=== PATIENT | female | born 1950 | race American Indian/Alaskan Native ===

== ENCOUNTER 2017-03-21 15:56 | Inpatient (IN) | payer MEDICARE ==
[2017-03-21 18:00] LABS: Anion Gap 25 mmol/L; BUN/Creatinine Ratio 10.32; Blood Urea Nitrogen 32 mg/dL (7-17); Calcium 9.6 mg/dL (8.4-10.2); Carbon Dioxide 23 mmol/L (22-30); Chloride 98.5 mmol/L (98-107); Glucose 113 mg/dL (65-100); Potassium 4.2 mmol/L (3.6-5.0); Sodium 142 mmol/L (137-145)
--- NOTE | 2017-03-21 19:16 | XRay Report ---
FINAL REPORT EXAM: XR FOREARM LT HISTORY: injury to left arm TECHNIQUE: Left forearm two views 3 images PRIORS: None. FINDINGS: Bone mineralization appears within normal limits. No acute fracture or subluxation is identified. No gross abnormality is seen in the soft tissues. IMPRESSION: 1. No acute osseous abnormality is identified.
[2017-03-21] MEDS ORDERED: ZOFRAN IV ONE (19:50)
[2017-03-21] MEDS ORDERED: MORPHINE IV ONE (19:50)
[2017-03-21] MEDS ORDERED: NORMODYNE IV ONE (19:50)
--- NOTE | 2017-03-21 19:54 | Emergency Department Report ---
HPI - General Chief Complaint: Extremity Injury, Lower Time Seen by Provider: 03/21/17 19:47 - HPI HPI: Chief complaint : left arm pain Patient is 66-year-old black female with no past medical history. Patient presents to ED with left shoulder and left elbow left thumb pain. She stated that she hit her arm earlier during the day. Patient has not taken any medicine for her symptoms. She denies any alleviating or exacerbating factors. No redness no swelling. In the ER, patient blood pressure was found to be 230s over 110s. She complains of mild dizziness at the time. Patient has not been to the doctor in many years. ED Past Medical Hx - Past Medical History Previous Medical History?: No Hx Hypertension: Yes - Surgical History Past Surgical History?: No - Social History Smoking Status: Never Smoker Substance Use Type: None ED Review of Systems ROS: Stated complaint: LEFT ARM PAIN/CANNOT MOVE Other details as noted in HPI Comment: All other systems reviewed and negative Respiratory: no symptoms reported Musculoskeletal: joint swelling, myalgia Hematological/Lymphatic: as per HPI Physical Exam - Physical Exam Vital Signs: Vital Signs 03/21/17 03/21/17 17:06 19:18 Temperature 98.6 F Pulse Rate 98 H 99 H Respiratory 18 20 Rate Blood Pressure 235/150 Blood Pressure 202/121 [Right] O2 Sat by Pulse 100 100 Oximetry Physical Exam: Vital signs reviewed. Gen. alert and oriented 3 in no distress Head atraumatic normocephalic Eyes PERR LA EOMI Chest regular rate and rhythm normal S1-S2 lungs clear bilaterally Abdomen soft nondistended Back no point tenderness paravertebral tenderness Neuro no focal deficit. Psych normal mood. ED Course Vital Signs 03/21/17 03/21/17 17:06 19:18 Temperature 98.6 F Pulse Rate 98 H 99 H Respiratory 18 20 Rate Blood Pressure 235/150 Blood Pressure 202/121 [Right] O2 Sat by Pulse 100 100 Oximetry ED Medical Decision Making - Lab Data Result diagrams: 03/21/17 20:12 03/21/17 17:29 Critical care attestation.: If time is entered above; I have spent that time in minutes in the direct care of this critically ill patient, excluding procedure time. ED Disposition Clinical Impression: Acute renal failure, Labile hypertension Disposition: OP ADMIT IP TO THIS HOSP Is pt being admited?: Yes Does the pt Need Aspirin: No Condition: Stable Instructions: Hypertension (ED)
[2017-03-21] MEDS ORDERED: APRESOLINE IV PRN (20:17)
[2017-03-21] MEDS ORDERED: SODIUM CHLORIDE FLUSH SYRINGE 10 ML IV PRN (20:19)
[2017-03-21] MEDS ORDERED: MILK OF MAGNESIA PO PRN (20:22)
[2017-03-21] MEDS ORDERED: ZOFRAN IV PRN (20:22)
[2017-03-21] MEDS ORDERED: TYLENOL PO PRN (20:22)
[2017-03-21] MEDS ORDERED: DULCOLAX PR PRN (20:22)
[2017-03-21] MEDS ORDERED: MORPHINE IV PRN (20:25)
[2017-03-21 20:37] LABS: Basophils % (Auto) 0.1 % (0.0-1.8); Hemoglobin 11.7 gm/dl (10.1-14.3); Mean Corpuscular HGB Conc 33 % (30-34); Mean Corpuscular Hemoglobin 27 pg (28-32); Mean Corpuscular Volume 83 fl (79-97); Platelet Count 263 K/mm3 (140-440); Red Blood Count 4.34 M/mm3 (3.65-5.03); Red Cell Distribution Width 14.2 % (13.2-15.2); White Blood Count 8.8 K/mm3 (4.5-11.0)
--- NOTE | 2017-03-21 20:37 | History and Physical Report ---
History of Present Illness Chief complaint: left arm pain History of present illness: 66-year-old woman with no significant past medical history presents with one- day of left wrist pain. Pain is sharp, 8/10, associated with left wrist swelling. and is worse on moving the joint, denies any relieving factors She thinks she may have banged her left elbow about 2 weeks ago, she never had any pain from that. She woke up with her left wrist hurting her and it is tender and swollen. She denies chest pain denies shortness of breath, denies palpitations, denies any dizziness or diaphoresis Past History Past Medical History: No medical history Past Surgical History: Social history: no significant social history Family history: hypertension Medications and Allergies Allergies Allergy/AdvReac Type Severity Reaction Status Date / Time No Known Allergies Allergy Verified 03/21/17 17:06 Home Medications Medication Instructions Recorded Confirmed Last Taken Type No Known Home Medications [No 03/21/17 03/21/17 Unknown History Reported Home Medications] Active Meds: Active Medications Acetaminophen (Tylenol) 650 mg PO Q4H PRN PRN Reason: Pain MILD(1-3)/Fever >100.5/PULLIAM Bisacodyl (Dulcolax) 10 mg [place] QDAY PRN PRN Reason: Constipation unrelieved by MOM Enoxaparin Sodium (Lovenox) 30 mg SUB-Q QDAY JENNIFER Hydralazine HCl (Apresoline) 10 mg IV Q4H PRN PRN Reason: BP >160/100 Hydrochlorothiazide (Hctz) 25 mg PO QDAY JENNIFER Sodium Chloride (Nacl 0.9% 1000 Ml) 1,000 mls @ 150 mls/hr IV DIRECT JENNIFER Stop: 03/22/17 03:39 Magnesium Hydroxide (Milk Of Magnesia) 30 ml PO Q4H PRN PRN Reason: Constipation Morphine Sulfate (Morphine) 2 mg IV Q4H PRN PRN Reason: Pain, Moderate (4-6) Nifedipine (Procardia Xl) 60 mg PO Q12HR JENNIFER Ondansetron HCl (Zofran) 4 mg IV Q8H PRN PRN Reason: N/V unrelieved by Reglan Sodium Chloride (Sodium Chloride Flush Syringe 10 Ml) 10 ml IV PRN PRN PRN Reason: LINE FLUSH Review of Systems All systems: negative (as stated in HPI, 14 system review is otherwise negative) Exam - Constitutional Vitals: Temp Pulse Resp BP Pulse Ox 98.6 F 73 20 231/121 98 03/21/17 17:06 03/21/17 20:17 03/21/17 20:20 03/21/17 20:17 03/21/17 20:20 General appearance: Present: no acute distress, well-nourished - EENT Eyes: Present: PERRL ENT: hearing intact, clear oral mucosa - Neck Neck: Present: supple, normal ROM - Respiratory Respiratory effort: normal Respiratory: bilateral: CTA - Cardiovascular Heart Sounds: Present: S1 & S2. Absent: rub, click - Extremities Extremities: pulses symmetrical Extremity abnormal: edema (left wrist tender, swollen, and slightly warm to touch) Peripheral Pulses: within normal limits - Abdominal General gastrointestinal: Present: soft, non-tender, non-distended, normal bowel sounds Female genitourinary: Present: normal - Rectal Rectal Exam: deferred - Integumentary Integumentary: Present: clear, warm, dry Body Four View: 1 - edema, tenderness, warmth - Musculoskeletal Musculoskeletal: gait normal, strength equal bilaterally - Psychiatric Psychiatric: appropriate mood/affect, intact judgment & insight - Neurologic Neurologic: CNII-XII intact, moves all extremities Results - Labs CBC & Chem 7: 03/22/17 05:25 03/22/17 05:25 Labs: Laboratory Last Values Sodium 142 mmol/L (137-145) 03/21/17 17:29 Potassium 4.2 mmol/L (3.6-5.0) 03/21/17 17:29 Chloride 98.5 mmol/L (98-107) 03/21/17 17:29 Carbon Dioxide 23 mmol/L (22-30) 03/21/17 17:29 Anion Gap 25 mmol/L 03/21/17 17:29 BUN 32 mg/dL (7-17) H 03/21/17 17:29 Creatinine 3.1 mg/dL (0.7-1.2) H 03/21/17 17:29 Estimated GFR 15 ml/min 03/21/17 17:29 BUN/Creatinine Ratio 10.32 % 03/21/17 17:29 Glucose 113 mg/dL (65-100) H 03/21/17 17:29 Calcium 9.6 mg/dL (8.4-10.2) 03/21/17 17:29 Troponin T < 0.010 ng/mL (0.00-0.029) 03/21/17 17:29 - Imaging and Cardiology Chest x-ray: image reviewed Assessment and Plan Assessment and plan: 66-year-old woman with no significant past medical history who presents with left arm pain, found to have hypertensive emergency Hypertensive emergency Patient has been started on IV medications and by mouth medications. She does not improve we'll have to consider transferring to the ICU and started on a Cardene drip Left wrist tenderness and swelling -likely due to gout or pseudogout -avoid NSAIDs, given KISHAN -start on steroids and pain meds -consider athrocentesis if symptoms do not improve Chest pain We have to consider this left arm pain to be a chest pain equivalent obtain CXR Troponin negative 1, EKG shows no acute changes, obtain serial troponins, obtain stress test in the morning, Continue medications to reduce blood pressure Acute kidney injury Baseline creatinine is unknown, given uncontrolled untreated hypertension it's likely this may be close to her baseline We'll give her a trial of IV fluids, if her renal function does not improve will obtain renal ultrasound and nephrology consults and urine lites Avoid nephrotoxins DVT prophylaxis Lovenox renally dosed VTE prophylaxis?: Chemical Plan of care discussed with patient/family: Yes
[2017-03-21] MEDS ORDERED: NACL 0.9% 1000 ML 1,000 ML IV SCH (21:00)
[2017-03-21] MEDS: PERCOCET 5/325 PO PRN (22:04)
[2017-03-21] MEDS: DELTASONE PO SCH (22:04)
[2017-03-21] MEDS: PROCARDIA XL PO SCH (22:40)
[2017-03-22 06:06] LABS: Basophils % (Auto) 0.1 % (0.0-1.8); Hematocrit 30.4 % (30.3-42.9); Hemoglobin 10.2 gm/dl (10.1-14.3); Mean Corpuscular HGB Conc 33 % (30-34); Mean Corpuscular Hemoglobin 27 pg (28-32); Mean Corpuscular Volume 81 fl (79-97); Platelet Count 224 K/mm3 (140-440); Red Blood Count 3.74 M/mm3 (3.65-5.03); Red Cell Distribution Width 14.1 % (13.2-15.2); White Blood Count 6.9 K/mm3 (4.5-11.0)
[2017-03-22 06:30] LABS: BUN/Creatinine Ratio 11.29; Calcium 9.1 mg/dL (8.4-10.2); Chloride 100.4 mmol/L (98-107); Potassium 3.9 mmol/L (3.6-5.0)
--- NOTE | 2017-03-22 08:08 | XRay Report ---
AP CHEST : 03/21/17 20:41 CLINICAL: Chest pain. COMPARISON:None FINDINGS: Cardiomegaly. Normal pulmonary vessels. The lungs are normally expanded and clear. The bones and soft tissues are unremarkable. IMPRESSION: Cardiomegaly but no CHF.
[2017-03-22] MEDS ORDERED: APRESOLINE IV PRN (08:17)
[2017-03-22] MEDS ORDERED: LEXISCAN IV ONE ×2 (08:39→08:45)
--- NOTE | 2017-03-22 08:59 | Consultation ---
History of Present Illness - Reason for Consult Consult date: 03/22/17 acute renal failure, chronic renal failure - History of Present Illness Patient is a 66-year-old AAF without any significant past medical history presents with one-day h/o left wrist pain. She hit her left elbow on the door at home about 2 weeks ago. The pain started few days ago, but yesterday it got worse and she was barely able to move her left hand. Pain was sharp, 8/10 and associated with left wrist swelling. Her intial BP was 235/150 mmHg. No prior h/o HTN, but hasn't seen a physician in a long while. Doesn't remember having any lab test done in the past few years. Her creatinine is 3.1. She denies chest pain, shortness of breath, dizziness, diaphoresis, leg swelling, weakness , muscle cramps, hematuria, NSAID intake, recurrent UTIs or family h/o CKD / ESRD. Past History Past Medical History: No medical history Past Surgical History: Social history: no significant social history Family history: hypertension Medications and Allergies Allergies Allergy/AdvReac Type Severity Reaction Status Date / Time No Known Allergies Allergy Verified 03/21/17 17:06 Home Medications Medication Instructions Recorded Confirmed Last Taken Type No Known Home Medications [No 03/21/17 03/21/17 Unknown History Reported Home Medications] Active Meds: Active Medications Acetaminophen (Tylenol) 650 mg PO Q4H PRN PRN Reason: Pain MILD(1-3)/Fever >100.5/PULLIAM Bisacodyl (Dulcolax) 10 mg [place] QDAY PRN PRN Reason: Constipation unrelieved by MOM Doxazosin Mesylate (Cardura) 4 mg PO QHS JENNIFER Enoxaparin Sodium (Lovenox) 30 mg SUB-Q QDAY JENNIFER Hydralazine HCl (Apresoline) 10 mg IV Q4H PRN PRN Reason: BP >160/100 Last Admin: 03/22/17 01:14 Dose: 10 mg Hydralazine HCl (Apresoline) 10 mg IV Q4HR PRN PRN Reason: Hypertension Magnesium Hydroxide (Milk Of Magnesia) 30 ml PO Q4H PRN PRN Reason: Constipation Morphine Sulfate (Morphine) 2 mg IV Q4H PRN PRN Reason: Pain, Moderate (4-6) Last Admin: 03/22/17 01:15 Dose: 2 mg Nifedipine (Procardia Xl) 60 mg PO Q12HR [facility] Last Admin: 03/21/17 22:40 Dose: 60 mg Ondansetron HCl (Zofran) 4 mg IV Q8H PRN PRN Reason: N/V unrelieved by Reglan Last Admin: 03/21/17 22:05 Dose: 4 mg Oxycodone/Acetaminophen (Percocet 5/325) 1 tab PO Q6H PRN PRN Reason: Pain, Moderate (4-6) Last Admin: 03/21/17 22:04 Dose: 1 tab Prednisone (Deltasone) 20 mg PO QDAY [facility] Last Admin: 03/21/17 22:04 Dose: 20 mg Sodium Chloride (Sodium Chloride Flush Syringe 10 Ml) 10 ml IV PRN PRN PRN Reason: LINE FLUSH Review of Systems Constitutional: no weight loss, no weight gain, no fever, no chills, no anorexia , no poor appetite Ears, nose, mouth and throat: no sinus pressure, no sinus pain, no epistaxis Breasts: deferred Cardiovascular: no chest pain, no orthopnea, no palpitations, no rapid/ irregular heart beat, no edema, no syncope, no lightheadedness, no shortness of breath, no dyspnea on exertion, no high blood pressure, no leg edema Respiratory: no cough, no shortness of breath Gastrointestinal: no abdominal pain, no nausea, no vomiting, no diarrhea, no melena Genitourinary Female: no hematuria Rectal: no bleeding Musculoskeletal: no hot joints, no morning stiffness Integumentary: no rash Neurological: no head injury, no paralysis, no weakness, no syncope, no vertigo Psychiatric: no disorientation Hematologic/Lymphatic: no easy bleeding Exam - Vital Signs Vital signs: Vital Signs Temp Pulse Resp BP Pulse Ox 98.6 F 98 H 18 235/150 100 03/21/17 17:06 03/21/17 17:06 03/21/17 17:06 03/21/17 17:06 03/21/17 17:06 - General Appearance General appearance: well-developed, well-nourished, appears stated age, other ( no distress) EENT: ATNC, PERRL, mucous membranes moist, hearing intact, vision intact Neck: Present: neck supple Respiratory: Clear to Ascultation Heart: regular, S1S2, no murmurs Gastrointestinal: Present: normoactive bowel sounds. Absent: tenderness, distended Integumentary: no rash, warm and dry Neurologic: no focal deficit, no asterixis, alert and oriented x3, CN 3-12 intact Musculoskeletal: Present: other (left wrist swollen, tender to touch) Psychiatric: mood/affect appropriate, cooperative Results - Lab Results 03/22/17 05:25 03/22/17 05:25 Most recent lab results Calcium 9.1 mg/dL (8.4-10.2) 03/22/17 05:25 - Image Kidney/bladder ultrasound: pending Assessment and Plan - Patient Problems (1) Acute renal failure Current Visit: Yes Status: Acute Qualifiers: Acute renal failure type: A Plan to address problem: Renal Insufficieny appears to be more of CKD rather than acute. CKD likely secondary to poorly controlled HTN. Renal US, Renal artery duplex and Urine studies are pending. Follow renal function. (2) Uncontrolled hypertension Current Visit: Yes Status: Chronic Plan to address problem: Add Cardura. (3) Left wrist injury Current Visit: Yes Status: Acute Qualifiers: Encounter type: E
[2017-03-22] MEDS ORDERED: HCTZ PO SCH (10:00)
[2017-03-22] MEDS ORDERED: LOVENOX SUB-Q SCH (10:00)
--- NOTE | 2017-03-22 10:15 | Admit Criteria Form ---
Admission Criteria Documentation: HYPERTENSION Clinical Indications for Admission to Inpatient Care ( tonto apache/check or initial the applicable condition/criteria) Admission is indicated for 1 or more of the following(1)(2)(3)(4)(5)(6)(7)(8)(9) (10): [ ]I. Hypertensive emergency, with evidence of acute and progressing target organ disease as indicated by 1 or more of the following: [ ]a) Hypertensive encephalopathy (e.g., confusion, altered mental status) (11) [ ]b) Cerebral infarction [ ]c) Intracranial hemorrhage [ ]d) Myocardial ischemia or infarction [ ]e) Heart failure (eg. Pulmonary edema) [ ]f) Aortic dissection [ ]g) Increased creatinine (new) with reduction of more than 50% in estimated glomerular filtration rate from baseline [ ]h) Seizure [ ]i) Papilledema [ ]j) Retinal hemorrhage [ ]k) Microangiopathic hemolytic anemia [ ]l) Other significant finding secondary to hypertension [ ]II. Adrenergic or sympathomimetic crisis (e.g., severe hypertension due to pheochromocytoma crisis, cocaine, phencyclindine, or amphetamine intoxication, or clonidine withdrawal) [X]III. Severe hypertension (SBP greater than 180 mmHg or DBP greater than 110 mmHg or greater than the 95th percentile for age, gender, and height in pediatric patients) that cannot be controlled (e.g., to SBP less than 160 mmHg and DBP less than 100 mmHg in adults) by treatment with oral medication in emergency department or observation care (12) Extended stay beyond goal length of staymay be needed for(21)(22): [ ]a) Persistent hypertensive encephalopathy [ ]b) Continuation of pulmonary edema [ ]c) Recurring or persistent severe hypertension [ ]d) Target organ damage (eg, angina, stroke, aortic dissection) The original [employer] content created by [employer] has been revised. The portions of the content which have been revised are identified through the use of italic text or in bold, and [employer] has neither reviewed nor approved the modified material. All other unmodified content is copyright [employer]. Please see references footnoted in the original [employer] edition 2016 Admission Criteria Met: Yes
--- NOTE | 2017-03-22 10:34 | Ultrasound Report ---
ULTRASOUND RENAL INDICATION: Renal failure. COMPARISON: None similar. FINDINGS: Renal sonography suggests mild to moderately increased renal cortical echogenicity. Grossly preserved contours. No hydronephrosis. RIGHT KIDNEY measures 8.7 x 3.9 x 4.3 cm with cortical thickness of 1 cm. LEFT KIDNEY estimated at 7.3 x 3.9 x 4.1 cm with cortical thickness of 1.1 cm. URINARY BLADDER grossly within normal limits. CONCLUSION: Medical renal disease and mild renal atrophy without acute sonographic abnormality. Please correlate. Thank you for the opportunity to participate in this patient's care.
--- NOTE | 2017-03-22 11:38 | Discharge Summary ---
Providers - Providers Date of Admission: 03/21/17 20:22 Date of discharge: 03/22/17 Attending physician: XIN CAHIDEZ MD 03/22/17 08:15 Consult to Physician [CONS] Routine Consulting Provider: ORTIZ PULIDO Reason For Exam: RENAL FAILURE Place consult to:: Dr. Pulido Notified:: Rich GONZALES Comment:: Dr. Pulido is aware of consult Primary care physician: [employer] Hospitalization Reason for admission: wrist pain, chest pain Condition: Stable Hospital course: 66-year-old woman with no significant past medical history presents with one- day of left wrist pain. Pain is sharp, 8/10, associated with left wrist swelling. and is worse on moving the joint, denies any relieving factors She thinks she may have banged her left elbow about 2 weeks ago, she never had any pain from that. She woke up with her left wrist hurting her and it is tender and swollen. She denies chest pain denies shortness of breath, denies palpitations, denies any dizziness or diaphoresis the patient presented to stress test which was unremarkable. Her wrist pain did resolve remarkably she started complaining of shoulder pain. She stated that she felt like her shoulder has just dislocated and was propped him out. She was able to passively extend and flex her left upper extremity and also listed above 60. It appears her pain went migratory. On repeat examination she denies that she needs to hold it up with her hand but when she takes of her hands she is able to independently move her hands. The nurse with. called me and stated that the patient started vomiting with decided to hold her discharge and then I got called again about 3 hours later that the patient suddenly left the hospital. Patients blood pressure was noted to be elevated and was adjusted, Nephrology was consulted and agreed about chronic Kidney disease, outpatient follow up was arranged. Renal ultrasound revealed medical renal disease. I advised patient on proper follow up. Diagnosis Hypertensive emergency Pseudogout Chest pain CKD Gastroenteritis Disposition: LEFT AGAINST MED ADVICE Time spent for discharge: 35 MINS Core Measure Documentation - Palliative Care Palliative Care/ Comfort Measures: Not Applicable - Core Measures Any of the following diagnoses?: none - VTE Discharge Requirements Deep Vein Thrombosis/Pulmonary Embolism Present on Admission: No Exam - Physical Exam Narrative exam: General appearance: Present: no acute distress, well-nourished - EENT Eyes: Present: PERRL ENT: hearing intact, clear oral mucosa - Neck Neck: Present: supple, normal ROM - Respiratory Respiratory effort: normal Respiratory: bilateral: CTA - Cardiovascular Heart Sounds: Present: S1 & S2. Absent: rub, click - Extremities Extremities: pulses symmetrical Extremity abnormal: edema , previously noted edema has improved. no tenderness in shoulder, Normal range of motion Peripheral Pulses: within normal limits - Abdominal General gastrointestinal: Present: soft, non-tender, non-distended, normal bowel sounds Female genitourinary: Present: normal - Rectal Rectal Exam: deferred - Integumentary Integumentary: Present: clear, warm, dry - Constitutional Vitals: Temp Pulse Resp BP Pulse Ox 98.7 F 60 20 170/79 95 03/22/17 05:47 03/22/17 07:45 03/22/17 05:47 03/22/17 05:47 03/22/17 05:47 Plan Activity: advance as tolerated, fall precautions Diet: low fat, renal Special Instructions: record daily weights, record daily BP diary Additional Instructions: RECOMMEND OUTPATIENT LEFT SHOULDER XRAY TO BE ARRANGED BY PCP if no resolution Follow up with: PRIMARY CARE, [Primary Care Provider] - 3-5 Days GERARDO DOHERTY MD [Staff Physician] - 7 Days ORTIZ PULIDO MD [Staff Physician] - 7 Days Prescriptions: Doxazosin [Cardura] 4 mg PO QHS #30 tablet NIFEdipine XL [Procardia Xl] 60 mg PO Q12HR #60 tablet predniSONE [Deltasone] 20 mg PO QDAY #10 tablet traMADol [Ultram] 50 mg PO Q6HR PRN #20 tablet PRN Reason: Pain
[2017-03-22] MEDS: DELTASONE PO SCH (12:30)
[2017-03-22] MEDS: PROCARDIA XL PO SCH (12:30)
[2017-03-22] MEDS: PERCOCET 5/325 PO PRN (14:33)
--- NOTE | 2017-03-22 18:05 | Progress Note ---
History Interval history: patient with vomiting. Hospitalist Physical - Constitutional Vitals: Temp Pulse Resp BP Pulse Ox 97.6 F 80 18 146/69 98 03/22/17 11:37 03/22/17 11:37 03/22/17 11:37 03/22/17 11:37 03/22/17 14:18 General appearance: Present: no acute distress, well-nourished Results - Labs CBC & Chem 7: 03/22/17 05:25 03/22/17 05:25 Labs: Laboratory Last Values WBC 6.9 K/mm3 (4.5-11.0) 03/22/17 05:25 RBC 3.74 M/mm3 (3.65-5.03) 03/22/17 05:25 Hgb 10.2 gm/dl (10.1-14.3) 03/22/17 05:25 Hct 30.4 % (30.3-42.9) 03/22/17 05:25 MCV 81 fl (79-97) 03/22/17 05:25 MCH 27 pg (28-32) L 03/22/17 05:25 MCHC 33 % (30-34) 03/22/17 05:25 RDW 14.1 % (13.2-15.2) 03/22/17 05:25 Plt Count 224 K/mm3 (140-440) 03/22/17 05:25 Lymph % (Auto) 13.6 % (13.4-35.0) 03/22/17 05:25 [place]ier % (Auto) 9.6 % (0.0-7.3) H 03/22/17 05:25 Eos % (Auto) 0.0 % (0.0-4.3) 03/22/17 05:25 Baso % (Auto) 0.1 % (0.0-1.8) 03/22/17 05:25 Lymph # 0.9 K/mm3 (1.2-5.4) L 03/22/17 05:25 [place] # 0.7 K/mm3 (0.0-0.8) 03/22/17 05:25 Eos # 0.0 K/mm3 (0.0-0.4) 03/22/17 05:25 Baso # 0.0 K/mm3 (0.0-0.1) 03/22/17 05:25 Seg Neutrophils % 76.7 % (40.0-70.0) H 03/22/17 05:25 Seg Neutrophils # 5.3 K/mm3 (1.8-7.7) 03/22/17 05:25 Sodium 142 mmol/L (137-145) 03/22/17 05:25 Potassium 3.9 mmol/L (3.6-5.0) 03/22/17 05:25 Chloride 100.4 mmol/L (98-107) 03/22/17 05:25 Carbon Dioxide 23 mmol/L (22-30) 03/22/17 05:25 Anion Gap 23 mmol/L 03/22/17 05:25 BUN 35 mg/dL (7-17) H 03/22/17 05:25 Creatinine 3.1 mg/dL (0.7-1.2) H 03/22/17 05:25 Estimated GFR 18 ml/min 03/22/17 05:25 BUN/Creatinine Ratio 11.29 % 03/22/17 05:25 Glucose 159 mg/dL (65-100) H 03/22/17 05:25 Calcium 9.1 mg/dL (8.4-10.2) 03/22/17 05:25 Troponin T < 0.010 ng/mL (0.00-0.029) 03/21/17 23:48 Triglycerides 94 mg/dL (2-149) 03/22/17 05:25 Cholesterol 219 mg/dL (50-199) H 03/22/17 05:25 LDL Cholesterol Direct 143 mg/dL (50-130) H 03/22/17 05:25 HDL Cholesterol 58 mg/dL (40-59) 03/22/17 05:25 Cholesterol/HDL Ratio 3.77 % 03/22/17 05:25
[2017-03-22 18:29] VITALS: BP 178/84
[2017-03-22 19:00] LABS: Alanine Aminotransferase 29 units/L (7-56); Albumin/Globulin Ratio 1.2 %; Alkaline Phosphatase 74 units/L (35-129); Bilirubin,Direct < 0.2 mg/dL (0-0.2); Bilirubin,Indirect 0.2 mg/dL; Total Protein 7.4 g/dL (6.3-8.2)
[2017-03-22] MEDS ORDERED: CARDURA PO SCH (22:00)
--- NOTE | 2017-03-23 07:54 | Vascular Lab Report ---
RENAL ARTERY DUPLEX EXAM: REASON FOR EXAM: Renal artery stenosis. NOTE: Visualization is technically adequate. COMMENTS ON THE AORTA: The aorta is patent. Elevated flow velocities are observed. No aneurysmal dilatation is noted. Mild atherosclerotic change is identified. The celiac artery is patent with elevated flow velocities. The superior mesenteric artery is patent with elevated flow. COMMENTS ON THE RIGHT KIDNEY: The kidney measures 10.8 centimeters in greatest dimension. No obvious parenchymal abnormalities are noted. The renal artery is patent. Maximum systolic velocity is 204 cm/sec. This finding is consistent with more than 60% diameter reduction. Renal aortic index is 2.1. This finding is consistent with less than 60% diameter reduction. Overall findings are consistent with more than 60% diameter reduction in the renal artery. COMMENTS ON THE LEFT KIDNEY: The kidney measures 10.2 centimeters in greatest dimension. No obvious parenchymal abnormalities are noted. The renal artery is patent. Maximum systolic velocity is 206 cm/sec. This finding is consistent with more than 60% diameter reduction. Renal aortic index is 2.12. This finding is consistent with less than 60% diameter reduction. Overall findings are consistent with more than 60% diameter reduction in the renal artery. IMPRESSION: RIGHT KIDNEY: More than 60% diameter reduction in the renal artery. LEFT KIDNEY: More than 60% diameter reduction in the renal artery. 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 Clinical correlation recommended.
== END 2017-03-22 18:29 | disposition left against medical advice (07) | DRG 683 ==
LOC: ED 15:56 → 4A 20:22
PROVIDERS: ADMIT Internal Medicine; ATTEND Internal Medicine
DX: N17.9 Acute kidney failure, unspecified (principal); I16.1 Hypertensive emergency; S69.92XA Unspecified injury of left wrist, hand and finger(s), initial encounter; I12.9 Hypertensive chronic kidney disease with stage 1 through stage 4 chronic kidney disease, or unspecified chronic kidney disease; R07.9 Chest pain, unspecified; K52.9 Noninfective gastroenteritis and colitis, unspecified; M11.20 Other chondrocalcinosis, unspecified site; N18.9 Chronic kidney disease, unspecified; Z82.49 Family history of ischemic heart disease and other diseases of the circulatory system; Z98.891 History of uterine scar from previous surgery; Z53.21 Procedure and treatment not carried out due to patient leaving prior to being seen by health care provider; X58.XXXA Exposure to other specified factors, initial encounter; Y93.89 Activity, other specified; Y92.89 Other specified places as the place of occurrence of the external cause
CPT/HCPCS: 36415; 71010; 76770; 78452; 80048; 80061; 80074; 84484; 85025; 93005; 93010; 93017; 93975; 96374; 96375; 96376; A9502; J0360; J2270; J2405; J2785; J7030; J7512

== ENCOUNTER 2017-03-31 12:43 | Outpatient (CLI) | payer MEDICARE ==
[2017-03-31 13:03] LABS: Bacteria,Urine 1+ /HPF (Negative); Bilirubin,Urine NEG (Negative); Blood,Urine SM (Negative); Ketones,Urine NEG (Negative); Leukocyte Esterase,Urine LG (Negative); Mucus,Urine FEW /HPF; Nitrite,Urine NEG (Negative); Urobilinogen,Urine < 2.0 mg/dL (<2.0)
[2017-03-31 13:39] LABS: BUN/Creatinine Ratio 14.33; Calcium 9.2 mg/dL (8.4-10.2); Chloride 102.4 mmol/L (98-107); Phosphorous 4.3 mg/dL (2.5-4.5); Potassium 4.3 mmol/L (3.6-5.0)
== END 2017-03-31 12:44 | disposition home or self-care (01) ==
LOC: LAB 12:43
PROVIDERS: ATTEND Internal Medicine Nephrology
DX: I12.9 Hypertensive chronic kidney disease with stage 1 through stage 4 chronic kidney disease, or unspecified chronic kidney disease (principal); N18.4 Chronic kidney disease, stage 4 (severe)
CPT/HCPCS: 36415; 80048; 81001; 83970; 84100; 86038

== ENCOUNTER 2022-01-02 12:48 | Inpatient (IN) | payer MEDICARE ==
--- NOTE | 2022-01-02 13:42 | Event Note ---
Date: 01/02/22 EMS documentation not available at time of chart dictation Medical screening examination note: 71-year-old female with a history of renal insufficiency, not COVID-19 vaccinated, probable hypertension, presenting to the ER today with a complaint of painless shortness of breath for 2 weeks. Patient reportedly hypoxic in the field. In the emergency room, on 2 to 3 L of supplemental oxygen, blood pressure 197 systolic. She is speaking in complete sentences on her cellular phone. Place patient on hall monitor, obtain EKG, chest x-ray, appropriate laboratory studies, detailed history and physical to be performed by oncoming provider. Vital Signs 01/02/22 12:54 Temperature 98.1 F Pulse Rate 108 H Respiratory 16 Rate Blood Pressure 160/102 [Left] O2 Sat by Pulse 98 Oximetry
--- NOTE | 2022-01-02 14:05 | XRay Report ---
CHEST 1 VIEW, 01/02/2022 1:44 PM CLINICAL INFORMATION/INDICATION: Shortness of breath COMPARISON: Chest radiograph, 03/21/2017 FINDINGS: SUPPORT DEVICES: None. HEART: The cardiac silhouette is normal in size. LUNGS/PLEURA: There is been interval development of diffuse bilateral predominantly interstitial opac ities with probable small bilateral pleural effusions. ADDITIONAL FINDINGS: No additional acute findings. IMPRESSION: 1. Diffuse predominantly interstitial opacities with small bilateral pleural effusions. Findings are favored to represent an infectious or inflammatory process. Pulmonary edema could have a similar appe arance. Signer Name: Stephanie Dumont MD Signed: 01/02/2022 2:01 PM Workstation Name: [employer]
[2022-01-02 14:13] LABS: Basophils % (Auto) 0.2 % (0.0-1.8); Eosinophils % (Auto) 0.4 % (0.0-4.3); Hematocrit 28.4 % (30.3-42.9); Hemoglobin 9.4 gm/dl (10.1-14.3); Lymphocytes # (Auto) 0.7 K/mm3 (1.2-5.4); Lymphocytes % (Auto) 9.6 % (13.4-35.0); Mean Corpuscular HGB Conc 33 % (30-34); Mean Corpuscular Volume 84 fl (79-97); Monocytes # (Auto) 0.7 K/mm3 (0.0-0.8); Monocytes % (Auto) 10.1 % (0.0-7.3); Platelet Count 273 K/mm3 (140-440); Red Blood Count 3.39 M/mm3 (3.65-5.03); Red Cell Distribution Width 14.3 % (13.2-15.2)
[2022-01-02] MEDS ORDERED: NITROGLYCERIN 2% OINT 1 GM TP ONE (14:32)
[2022-01-02 14:34] LABS: INR 1.1 (0.87-1.13)
[2022-01-02 14:37] LABS: Albumin 4.4 g/dL (3.9-5); Calcium 9.7 mg/dL (8.4-10.2)
[2022-01-02 14:51] LABS: Chol/HDL Ratio 5.13 %
--- NOTE | 2022-01-02 14:54 | Emergency Department Report ---
ED Shortness of Breath HPI - General Chief Complaint: Dyspnea/Respdistress Stated Complaint: MARVIN Time Seen by Provider: 01/02/22 14:02 Source: EMS Mode of arrival: Stretcher Limitations: No Limitations - History of Present Illness Initial Comments: 71-year-old female with a past medical history of hypertension, renal insufficiency, and unvaccinated for COVID presents to the hospital with 2 weeks of progressively worsening shortness of breath. Positive dyspnea on exertion, orthopnea, and PND for the last week. Patient denies decreasing urinary output, chest pain, cough, fever, calf tenderness, leg edema, history of CAD. Patient went to her PMD office and was found to be hypoxic with a room air saturation of 85%. She received 1 puff of a ProAir inhaler prior to ED transport. She is currently on 2 L of oxygen at time of my evaluation but is satting in the mid to high 90s - Related Data Previous Rx's Medication Instructions Recorded Last Taken Type Doxazosin [Cardura] 4 mg PO QHS #30 tablet 03/22/17 Unknown Rx NIFEdipine XL [Procardia Xl] 60 mg PO Q12HR #60 tablet 03/22/17 Unknown Rx predniSONE [Deltasone] 20 mg PO QDAY #10 tablet 03/22/17 Unknown Rx traMADoL [Ultram] 50 mg PO Q6HR PRN #20 tablet 03/22/17 Unknown Rx Allergies Allergy/AdvReac Type Severity Reaction Status Date / Time No Known Allergies Allergy Verified 01/02/22 14:40 ED Review of Systems ROS: Stated complaint: MARVIN Other details as noted in HPI Comment: All other systems reviewed and negative ED Past Medical Hx - Past Medical History Hx Hypertension: Yes Hx Renal Disease: Yes (Renal insufficiency) - Social History Smoking Status: Never Smoker Substance Use Type: None - Medications Home Medications: Home Medications Medication Instructions Recorded Confirmed Last Taken Type Doxazosin [Cardura] 4 mg PO QHS #30 tablet 03/22/17 01/02/22 Unknown Rx NIFEdipine XL [Procardia Xl] 60 mg PO Q12HR #60 tablet 03/22/17 01/02/22 Unknown Rx predniSONE [Deltasone] 20 mg PO QDAY #10 tablet 03/22/17 01/02/22 Unknown Rx traMADoL [Ultram] 50 mg PO Q6HR PRN #20 tablet 03/22/17 01/02/22 Unknown Rx ED Physical Exam - General Limitations: No Limitations - Other Other exam information: General: No acute distress Head: Atraumatic Eyes: normal appearance ENT: Moist mucous membranes Neck: Normal appearance, no midline tenderness Chest: Tachypnea, no audible rales or wheezes CV: Tachycardic regular Abdomen: Soft, normal bowel sounds, nontender, nondistended, no rebound or guarding Back: Normal inspection Extremity: Normal inspection, full range of motion, no calf tenderness or leg edema Neuro: Alert O x 3, no facial asymmetry, speech clear, no gross motor sensory deficit Psych: Appropriate behavior Skin: No rash ED Course Vital Signs 01/02/22 01/02/22 01/02/22 12:54 14:21 15:52 Temperature 98.1 F 99.5 F Pulse Rate 108 H 32 L Respiratory 16 32 H Rate Blood Pressure 160/102 198/126 [Left] O2 Sat by Pulse 98 99 94 Oximetry - Consultations Consultation #1: 01/02/22 15:38 case d/w with Dr Desir state dr Hernandez is her flap lining binder 01/02/22 15:58 Case discussed with flap lining binder Dr. Hernandez. He will evaluate patient and evaluate renal function during admission 01/02/22 16:27 case d/w Dr Farmer cardiology, will consult ED Medical Decision Making - Lab Data Result diagrams: 01/02/22 13:54 01/02/22 13:54 Lab Results 01/02/22 01/02/22 01/02/22 Range/Units 13:54 13:54 13:54 WBC 6.9 (4.5-11.0) K/mm3 RBC 3.39 L (3.65-5.03) M/mm3 Hgb 9.4 L (10.1-14.3) gm/dl Hct 28.4 L (30.3-42.9) % MCV 84 (79-97) fl MCH 28 (28-32) pg MCHC 33 (30-34) % RDW 14.3 (13.2-15.2) % Plt Count 273 (140-440) K/mm3 Lymph % (Auto) 9.6 L (13.4-35.0) % [place] % (Auto) 10.1 H (0.0-7.3) % Eos % (Auto) 0.4 (0.0-4.3) % Baso % (Auto) 0.2 (0.0-1.8) % Lymph # (Auto) 0.7 L (1.2-5.4) K/mm3 [place] # (Auto) 0.7 (0.0-0.8) K/mm3 Eos # (Auto) 0.0 (0.0-0.4) K/mm3 Baso # (Auto) 0.0 (0.0-0.1) K/mm3 Seg Neutrophils % 79.7 H (40.0-70.0) % Seg Neutrophils # 5.5 (1.8-7.7) K/mm3 PT 15.5 H (12.2-14.9) Sec. INR 1.10 (0.87-1.13) Sodium 136 L (137-145) mmol/L Potassium 4.3 (3.6-5.0) mmol/L Chloride 102.0 (98-107) mmol/L Carbon Dioxide 18 L (22-30) mmol/L Anion Gap 20 mmol/L BUN 68 H (7-17) mg/dL Creatinine 4.9 H (0.6-1.2) mg/dL Estimated GFR 11 ml/min BUN/Creatinine Ratio 14 % Glucose 101 H (65-100) mg/dL Calcium 9.7 (8.4-10.2) mg/dL Total Bilirubin 0.30 (0.1-1.2) mg/dL AST 23 (5-40) units/L ALT 21 (7-56) units/L Alkaline Phosphatase 74 (35-129) units/L Troponin T (0.00-0.029) ng/mL NT-Pro-B Natriuret Pep 21204 H (0-900) pg/mL Total Protein 7.0 (6.3-8.2) g/dL Albumin 4.4 (3.9-5) g/dL Albumin/Globulin Ratio 1.7 % Triglycerides (2-149) mg/dL Cholesterol (50-199) mg/dL LDL Cholesterol Direct (50-130) mg/dL HDL Cholesterol (40-59) mg/dL Cholesterol/HDL Ratio % //22 Range/Units 13:54 WBC (4.5-11.0) K/mm3 RBC (3.65-5.03) M/mm3 Hgb (10.1-14.3) gm/dl Hct (30.3-42.9) % MCV (79-97) fl MCH (28-32) pg MCHC (30-34) % RDW (13.2-15.2) % Plt Count (140-440) K/mm3 Lymph % (Auto) (13.4-35.0) % [place] % (Auto) (0.0-7.3) % Eos % (Auto) (0.0-4.3) % Baso % (Auto) (0.0-1.8) % Lymph # (Auto) (1.2-5.4) K/mm3 [place] # (Auto) (0.0-0.8) K/mm3 Eos # (Auto) (0.0-0.4) K/mm3 Baso # (Auto) (0.0-0.1) K/mm3 Seg Neutrophils % (40.0-70.0) % Seg Neutrophils # (1.8-7.7) K/mm3 PT (12.2-14.9) Sec. INR (0.87-1.13) Sodium (137-145) mmol/L Potassium (3.6-5.0) mmol/L Chloride (98-107) mmol/L Carbon Dioxide (22-30) mmol/L Anion Gap mmol/L BUN (7-17) mg/dL Creatinine (0.6-1.2) mg/dL Estimated GFR ml/min BUN/Creatinine Ratio % Glucose (65-100) mg/dL Calcium (8.4-10.2) mg/dL Total Bilirubin (0.1-1.2) mg/dL AST (5-40) units/L ALT (7-56) units/L Alkaline Phosphatase (35-129) units/L Troponin T 0.141 H* (0.00-0.029) ng/mL NT-Pro-B Natriuret Pep (0-900) pg/mL Total Protein (6.3-8.2) g/dL Albumin (3.9-5) g/dL Albumin/Globulin Ratio % Triglycerides 177 H (2-149) mg/dL Cholesterol 267 H (50-199) mg/dL LDL Cholesterol Direct 192 H (50-130) mg/dL HDL Cholesterol 52 (40-59) mg/dL Cholesterol/HDL Ratio 5.13 % - EKG Data -: EKG Interpreted by Me EKG shows normal: sinus rhythm, ST-T waves (LVH with repol, no ST elevation HI) Rate: tachycardia (110) - EKG Data When compared to previous EKG there are: no significant change - Radiology Data Radiology results: report reviewed CHEST 1 VIEW, 01/02/2022 1:44 PM CLINICAL INFORMATION/INDICATION: Shortness of breath COMPARISON: Chest radiograph, 03/21/2017 FINDINGS: SUPPORT DEVICES: None. HEART: The cardiac silhouette is normal in size. LUNGS/PLEURA: There is been interval development of diffuse bilateral predominantly interstitial opacities with probable small bilateral pleural effusions. ADDITIONAL FINDINGS: No additional acute findings. IMPRESSION: 1. Diffuse predominantly interstitial opacities with small bilateral pleural effusions. Findings are favored to represent an infectious or inflammatory process. Pulmonary edema could have a similar appearance. - Medical Decision Making 71-year-old female with shortness of breath worsened this week with signs of orthopnea PND had chest x-ray findings just a pulmonary edema with pleural effusions. Based on radiology read COVID test has been ordered. However, patient does not have infectious symptoms. Elevation in BP noted along with worsening renal function. Nitroglycerin paste, Lasix, supplemental oxygen initiated in the ED. Consult ordered with cardiology and nephrology. Critical Care Time: Yes Critical care time in (mins) excluding proc time.: 35 Critical care attestation.: If time is entered above; I have spent that time in minutes in the direct care of this critically ill patient, excluding procedure time. Critical Care Time: 35 Minutes of critical care time excluding procedures were used in the care of the patient. I discussed treatment plan with the nursing team members. I reviewed electronic record. I spoke with family to obtain medical history. Patient required multiple interventions and reassessments. Spoke with hospitalist and consultants for collaborative care ED Disposition Clinical Impression: Acute respiratory failure with hypoxemia, Pulmonary edema, Acute on chronic renal failure, Elevated troponin, Hypertensive emergency Disposition: ADMITTED INPATIENT Is pt being admited?: Yes Condition: Stable Instructions: Pulmonary Edema (ED), Hypertension (ED) Time of Disposition: 15:59 (DR Solomon/hospitalist)
[2022-01-02] MEDS ORDERED: ASPIRIN 325 MG TAB PO ONE (14:55)
[2022-01-02] MEDS ORDERED: FUROSEMIDE 40 MG/4 ML INJ IV ONE (14:58)
--- NOTE | 2022-01-02 15:45 | History and Physical Report ---
History of Present Illness Chief complaint: I cannot breathe and I am swollen History of present illness: 71 YO Female with HTN, CKD presents to ED for evaluation. Patient reports "I cannot breathe and I am swollen". Patient states she has experienced shortness of breath over the past 2 weeks with persistent and worsening symptoms over the past 1 week. Patient acknowledges dyspnea on exertion, dyspnea at rest, or thopnea, paroxysmal nocturnal dyspnea, decreased exercise tolerance, and lower extremity edema. Patient acknowledges 10 pound weight gain over the past 1 week. EMS was notified and upon arrival the patient was found to be in distress and subsequently transported to [facility] for further care and evaluation of the aforementioned symptoms. The patient was seen and evaluated in the emergency department. All lab and imaging studies reviewed. Patient found to have a pulse oximetry of 86% with exertion which is consistent with acute hypoxemic respiratory failure. Patient placed on supplemental oxygen with mild improvement in symptoms. Was found to be using accessory muscles to breathe, sitting up in bed, tripoding patient, and unable to speak in complete sentences. The patient was subsequently placed on noninvasive positive pressure ventilation with improvement in symptoms. Chest x-ray revealed bilateral pneumonia as well as bilateral pulmonary edema. Patient also found to have end-stage renal disease in need of dialysis. Patient admitted to medical floor and initiated on CHF protocol as well as coronavirus protocol. Patient denies fever, chills, chest pain, palpitation, skin rash, recent contact, known exposure to COVID-19. Prior admission on 03/21/2017 reviewed. All medication listed at time of admission has been reconciled. Advanced care planning conducted in ED. Past History Past Medical History: hypertension, renal failure Past Surgical History: No surgical history, Other (Reviewed) Social history: Family history: diabetes, hypertension Medications and Allergies Allergies Allergy/AdvReac Type Severity Reaction Status Date / Time No Known Allergies Allergy Verified 01/02/22 14:40 Home Medications Medication Instructions Recorded Confirmed Last Taken Type Doxazosin [Cardura] 4 mg PO QHS #30 tablet 03/22/17 01/02/22 Unknown Rx NIFEdipine XL [Procardia Xl] 60 mg PO Q12HR #60 tablet 03/22/17 01/02/22 Unknown Rx predniSONE [Deltasone] 20 mg PO QDAY #10 tablet 03/22/17 01/02/22 Unknown Rx traMADoL [Ultram] 50 mg PO Q6HR PRN #20 tablet 03/22/17 01/02/22 Unknown Rx Review of Systems Constitutional: weight gain, fatigue, weakness, malaise Exam - Constitutional Vitals: Temp Pulse Resp BP Pulse Ox 98.1 F 108 H 16 160/102 99 01/02/22 12:54 01/02/22 12:54 01/02/22 12:54 01/02/22 12:54 01/02/22 14:21 General appearance: Present: mild distress - EENT Eyes: Present: PERRL ENT: hearing intact, clear oral mucosa - Neck Neck: Present: supple - Respiratory Respiratory effort: labored, accessory muscle use, stridor Respiratory: bilateral: diminished, rales - Cardiovascular Heart Sounds: Present: S1 & S2. Absent: rub, click - Extremities Extremity abnormal: edema Peripheral Pulses: within normal limits - Abdominal General gastrointestinal: Present: soft, non-tender, non-distended, normal bowel sounds Female genitourinary: Present: normal - Integumentary Integumentary: Present: clear, warm, dry - Musculoskeletal Musculoskeletal: generalized weakness - Psychiatric Psychiatric: appropriate mood/affect, intact judgment & insight - Neurologic Neurologic: CNII-XII intact, moves all extremities HEART Score - HEART Score Troponin: Troponin T 0.141 ng/mL (0.00-0.029) H* 01/02/22 13:54 Results - Labs CBC & Chem 7: 01/02/22 13:54 01/02/22 13:54 Labs: Abnormal lab results 01/02/22 01/02/22 01/02/22 Range/Units 13:54 13:54 13:54 RBC 3.39 L (3.65-5.03) M/mm3 Hgb 9.4 L (10.1-14.3) gm/dl Hct 28.4 L (30.3-42.9) % Lymph % (Auto) 9.6 L (13.4-35.0) % [place] % (Auto) 10.1 H (0.0-7.3) % Lymph # (Auto) 0.7 L (1.2-5.4) K/mm3 Seg Neutrophils % 79.7 H (40.0-70.0) % PT 15.5 H (12.2-14.9) Sec. Sodium 136 L (137-145) mmol/L Carbon Dioxide 18 L (22-30) mmol/L BUN 68 H (7-17) mg/dL Creatinine 4.9 H (0.6-1.2) mg/dL Glucose 101 H (65-100) mg/dL Troponin T (0.00-0.029) ng/mL NT-Pro-B Natriuret Pep 94427 H (0-900) pg/mL Triglycerides (2-149) mg/dL Cholesterol (50-199) mg/dL LDL Cholesterol Direct (50-130) mg/dL 01/02/22 Range/Units 13:54 RBC (3.65-5.03) M/mm3 Hgb (10.1-14.3) gm/dl Hct (30.3-42.9) % Lymph % (Auto) (13.4-35.0) % [place] % (Auto) (0.0-7.3) % Lymph # (Auto) (1.2-5.4) K/mm3 Seg Neutrophils % (40.0-70.0) % PT (12.2-14.9) Sec. Sodium (137-145) mmol/L Carbon Dioxide (22-30) mmol/L BUN (7-17) mg/dL Creatinine (0.6-1.2) mg/dL Glucose (65-100) mg/dL Troponin T 0.141 H* (0.00-0.029) ng/mL NT-Pro-B Natriuret Pep (0-900) pg/mL Triglycerides 177 H (2-149) mg/dL Cholesterol 267 H (50-199) mg/dL LDL Cholesterol Direct 192 H (50-130) mg/dL Assessment and Plan - Patient Problems (1) Acute hypoxemic respiratory failure Current Visit: Yes Status: Acute Plan to address problem: Chest x-ray, supplemental oxygen, pulse oximetry, nebulizer therapy, pulmonary toilet, noninvasive positive pressure ventilation as clinically indicated. (2) New onset of congestive heart failure Current Visit: Yes Status: Acute Plan to address problem: New onset CHF, strict I's/O, monitor urine output every shift, daily weight, afterload reduction, diuresis, cardiology team consulted, echocardiogram ordered and pending at time of admission. (3) End stage renal disease Current Visit: Yes Status: Acute Plan to address problem: Nephrology team consulted in ED, strict I's/O, monitor fluid balance, dialysis as per renal team. (4) Suspected 2019 novel coronavirus infection Current Visit: Yes Status: Acute Plan to address problem: Coronavirus protocol: Vitamin C therapy, vitamin D therapy, zinc therapy, IV antibiotic therapy, IV steroid therapy, supplemental oxygen, pulse oximetry, supportive care. Prophylactic anticoagulation. (5) DVT prophylaxis Current Visit: Yes Status: Acute Plan to address problem: SCD to bilateral lower extremities while in bed, prophylactic anticoagulation (6) Advance care planning Current Visit: Yes Status: Acute Plan to address problem: Disease education conducted, care plan discussed, diagnoses discussed, prognosis discussed, patient full code. Patient knowledges understanding agreement with care plan, +30 minutes. (7) Preventative health care Current Visit: Yes Status: Acute Plan to address problem: Patient counseled regarding medication compliance, daily weight, low-sodium diet, medication compliance. +15 minutes
[2022-01-02] MEDS ORDERED: hydrALAZINE 20 MG/1 ML INJ IV ONE (15:58)
[2022-01-02] MEDS ORDERED: ACETAMINOPHEN 325 MG TAB PO PRN (17:32)
[2022-01-02] MEDS ORDERED: ALBUTEROL 2.5 MG/3 ML NEBU IH PRN (17:32)
[2022-01-02] MEDS: HYDROmorphone 1 MG/1 ML INJ IV PRN (18:22)
[2022-01-02] MEDS: FUROSEMIDE 20 MG/2 ML INJ IV SCH (19:43)
--- NOTE | 2022-01-02 21:30 | Event Note ---
Date: 01/02/22 Per patient she sees . D/w .
[2022-01-02] MEDS: ZINC SULFATE 220 MG CAP PO SCH (23:44)
[2022-01-02] MEDS: ASCORBIC ACID 500 MG TAB PO SCH (23:44)
[2022-01-02] MEDS: NIFEdipine XL 60 MG TAB PO SCH (23:44)
[2022-01-02] MEDS: methylPREDNISolone Sod Succinate 40 MG/1 ML INJ IV SCH (23:45)
[2022-01-02] MEDS: HEPARIN 5,000 UNIT/1 ML VIAL SUB-Q SCH (23:45)
[2022-01-02] MEDS: DOXAZOSIN 4 MG TAB PO SCH (23:53)
[2022-01-03] MEDS: oxyCODONE /ACETAMINOPHEN 5-325MG TAB PO PRN ×2 (00:02→09:53)
[2022-01-03 03:13] LABS: Basophils % (Auto) 0.1 % (0.0-1.8); Eosinophils # (Auto) 0.1 K/mm3 (0.0-0.4); Eosinophils % (Auto) 0.8 % (0.0-4.3); Lymphocytes # (Auto) 0.4 K/mm3 (1.2-5.4); Lymphocytes % (Auto) 5.1 % (13.4-35.0); Mean Corpuscular HGB Conc 32 % (30-34); Mean Corpuscular Volume 83 fl (79-97); Monocytes # (Auto) 0.4 K/mm3 (0.0-0.8); Monocytes % (Auto) 5.6 % (0.0-7.3); Platelet Count 268 K/mm3 (140-440); Red Blood Count 3.38 M/mm3 (3.65-5.03); Red Cell Distribution Width 14.4 % (13.2-15.2)
[2022-01-03 03:33] LABS: Calcium 9.1 mg/dL (8.4-10.2)
[2022-01-03] MEDS: FUROSEMIDE 20 MG/2 ML INJ IV SCH ×2 (06:28→18:45)
[2022-01-03] MEDS: methylPREDNISolone Sod Succinate 40 MG/1 ML INJ IV SCH ×3 (06:28→22:06)
--- NOTE | 2022-01-03 09:24 | Consultation ---
History of Present Illness - Reason for Consult Consult date: 01/03/22 end stage renal disease Requesting physician: STONE LECHUGA - History of Present Illness 71 YO Female with HTN, CKD presents to ED for evaluation. Patient reports "I cannot breathe and I am swollen". Patient states she has experienced shortness of breath over the past 2 weeks with persistent and worsening symptoms over the past 1 week. Patient acknowledges dyspnea on exertion, dyspnea at rest, orthopnea, paroxysmal nocturnal dyspnea, decreased exercise tolerance, and lower extremity edema. Patient acknowledges 10 pound weight gain over the past 1 week. EMS was notified and upon arrival the patient was found to be in distress and subsequently transported to [facility] for further care and evaluation of the aforementioned symptoms. The patient was seen and evaluated in the emergency department. All lab and imaging studies reviewed. Patient found to have a pulse oximetry of 86% with exertion which is consistent with acute hypoxemic respiratory failure. Patient placed on supplemental oxygen with mild improvement in symptoms. Was found to be using accessory muscles to breathe, sitting up in bed, tripoding patient, and unable to speak in complete sentences. The patient was subsequently placed on noninvasive positive pressure ventilation with improvement in symptoms. Chest x-ray revealed bilateral pneumonia as well as bilateral pulmonary edema. Patient also found to have end- stage renal disease in need of dialysis. Patient admitted to medical floor and initiated on CHF protocol as well as coronavirus protocol. Patient denies fever, chills, chest pain, palpitation, skin rash, recent contact, known exposure to COVID-19. Prior admission on 03/21/2017 reviewed. All medication listed at time of admission has been reconciled. Advanced care planning conducted in ED. Past History Past Medical History: hypertension, renal failure Past Surgical History: No surgical history, Other (Reviewed) Social history: Family history: diabetes, hypertension Review of Systems Constitutional: weight gain, fatigue, weakness, malaise Past History Past Medical History: hypertension, renal failure Past Surgical History: No surgical history, Other (Reviewed) Social history: Family history: diabetes, hypertension Medications and Allergies Allergies Allergy/AdvReac Type Severity Reaction Status Date / Time No Known Allergies Allergy Verified 01/02/22 14:40 Home Medications Medication Instructions Recorded Confirmed Last Taken Type Doxazosin [Cardura] 4 mg PO QHS #30 tablet 03/22/17 01/02/22 Unknown Rx NIFEdipine XL [Procardia Xl] 60 mg PO Q12HR #60 tablet 03/22/17 01/02/22 Unknown Rx predniSONE [Deltasone] 20 mg PO QDAY #10 tablet 03/22/17 01/02/22 Unknown Rx traMADoL [Ultram] 50 mg PO Q6HR PRN #20 tablet 03/22/17 01/02/22 Unknown Rx Active Meds: Active Medications Acetaminophen (Acetaminophen 325 Mg Tab) 650 mg PO Q4H PRN PRN Reason: Pain MILD(1-3)/Fever >100.5/PULLIAM Albuterol (Albuterol 2.5 Mg/3 Ml Nebu) 2.5 mg IH Q4HRT PRN PRN Reason: Shortness Of Breath Ascorbic Acid (Ascorbic Acid 500 Mg Tab) 500 mg PO BID [facility] Last Admin: 01/02/22 23:44 Dose: 500 mg Azithromycin (Azithromycin 250 Mg Tab) 500 mg PO QDAY [facility]; Protocol Cholecalciferol (Cholecalciferol (Vit D3) 400 Unit Tab) 1,000 unit PO QDAY [facility] Doxazosin Mesylate (Doxazosin 4 Mg Tab) 4 mg PO QHS [facility] Last Admin: 01/02/22 23:53 Dose: 4 mg Furosemide (Furosemide 20 Mg/2 Ml Inj) 20 mg IV BID@0600,1800 [facility] Last Admin: 01/03/22 06:28 Dose: 20 mg Heparin Sodium (Porcine) (Heparin 5,000 Unit/1 Ml Vial) 5,000 unit SUB-Q Q12HR [facility] Last Admin: 01/02/22 23:45 Dose: 5,000 unit Hydromorphone HCl (Hydromorphone 1 Mg/1 Ml Inj) 0.5 mg IV Q13H PRN PRN Reason: Pain , Severe (7-10) Last Admin: 01/02/22 18:22 Dose: 0.5 mg Ceftriaxone Sodium (Rocephin/Ns 2 Gm/100 Ml) 2 gm in 100 mls @ 200 mls/hr IV Q24H [facility]; Protocol Methylprednisolone Sodium Succinate (Methylprednisolone Sod Succinate 40 Mg/1 Ml Inj) 40 mg IV Q8HR [facility] Last Admin: 01/03/22 06:28 Dose: 40 mg Nifedipine (Nifedipine Xl 60 Mg Tab) 60 mg PO Q12HR [facility] Last Admin: 01/02/22 23:44 Dose: 60 mg Ondansetron HCl (Ondansetron 4 Mg/2 Ml Inj) 4 mg IV Q8H PRN PRN Reason: Nausea And Vomiting Oxycodone/Acetaminophen (Oxycodone /Acetaminophen 5-325mg Tab) 1 tab PO Q6H PRN PRN Reason: Pain, Moderate (4-6) Last Admin: 01/03/22 00:02 Dose: 1 tab Sodium Chloride (Sodium Chloride 0.9% 10 Ml Flush Syringe) 10 ml IV BID [facility] Last Admin: 01/02/22 23:45 Dose: 10 ml Sodium Chloride (Sodium Chloride 0.9% 10 Ml Flush Syringe) 10 ml IV PRN PRN PRN Reason: LINE FLUSH Zinc Sulfate (Zinc Sulfate 220 Mg Cap) 220 mg PO BID [facility] Last Admin: 01/02/22 23:44 Dose: 220 mg Exam - Vital Signs Vital signs: Vital Signs Temp Pulse Resp BP Pulse Ox 98.1 F 108 H 16 160/102 98 01/02/22 12:54 01/02/22 12:54 01/02/22 12:54 01/02/22 12:54 01/02/22 12:54 - Physical Exam Narrative exam: General appearance: Present: mild distress - EENT Eyes: Present: PERRL ENT: hearing intact, clear oral mucosa - Neck Neck: Present: supple - Respiratory Respiratory effort: labored, accessory muscle use, stridor Respiratory: bilateral: diminished, rales - Cardiovascular Heart Sounds: Present: S1 & S2. Absent: rub, click - Extremities Extremity abnormal: edema Peripheral Pulses: within normal limits - Abdominal General gastrointestinal: Present: soft, non-tender, non-distended, normal bowel sounds Female genitourinary: Present: normal - Integumentary Integumentary: Present: clear, warm, dry - Musculoskeletal Musculoskeletal: generalized weakness - Psychiatric Psychiatric: appropriate mood/affect, intact judgment & insight - Neurologic Neurologic: CNII-XII intact, moves all extremities Results - Lab Results 01/03/22 03:00 01/03/22 03:00 Most recent lab results Calcium 9.1 mg/dL (8.4-10.2) 01/03/22 03:00 Assessment and Plan Impression: * analia on adv ckd 5--cr 4.8 last offfice visit 07/2021 * Acute hypoxic resp failure * HTN * Covid PUI * Anemia in ESRD * cardiomyopathy * LE[facility] ANN PNA Plan: * follow up renal us and lytes * 24hr crcl * in denial about renal function, "states she will never start dialysis" * diuresis as tolerated * iv abx per primary team * renal diet and strict i/os * follow up on Covid testing and management per primary team * fluid restriction * daily lytes
[2022-01-03] MEDS: NIFEdipine XL 60 MG TAB PO SCH ×3 (09:52→23:55)
[2022-01-03] MEDS: ZINC SULFATE 220 MG CAP PO SCH ×3 (09:52→23:55)
[2022-01-03] MEDS: AZITHROMYCIN 250 MG TAB PO SCH (09:52)
[2022-01-03] MEDS: ASCORBIC ACID 500 MG TAB PO SCH ×3 (09:52→23:55)
[2022-01-03] MEDS: cefTRIAXone/NS 2 GM/100 ML 2 GM/100 ML BAG IV SCH (09:52)
[2022-01-03] MEDS: CHOLECALCIFEROL (VIT D3) 400 UNIT TAB PO SCH (09:53)
[2022-01-03] MEDS: HEPARIN 5,000 UNIT/1 ML VIAL SUB-Q SCH ×3 (09:53→23:53)
[2022-01-03] MEDS ORDERED: cefTRIAXone/NS 1 GM/50 ML 1 GM/50 ML BAG IV SCH (10:00)
--- NOTE | 2022-01-03 10:03 | Progress Note ---
Assessment and Plan Assessment and plan: 71 YO Female with HTN, CKD presents to ED for evaluation of shortness of breath over the past 2 weeks with persistent and worsening symptoms over the past 1 week. Patient acknowledged dyspnea on exertion, dyspnea at rest, orthopnea, paroxysmal nocturnal dyspnea, decreased exercise tolerance, and lower extremity edema. Patient acknowledged 10 pound weight gain over the past 1 week. EMS was notified and upon arrival the patient was found to be in distress and subsequently transported to [facility] for further care and evaluation of the aforementioned symptoms. The patient was seen and evaluated in the emergency department. All lab and imaging studies reviewed. Patient found to have a pulse oximetry of 86% with exertion which is consistent with acute hypoxemic respiratory failure. Acute hypoxic respiratory failure New onset congestive heart failure Sepsis. 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 The patient's last creatinine was noted to be 4.14 July 2021 Anemia of CKD Cardiomyopathy Accelerated hypertension 01/03/2022. We will continue IV antibiotics for now. Follow-up COVID PCR testing. Continue diuresis per nephrology recommendations. Follow-up renal ultrasound, 24-hour urine. Continue renal diet and strict I/os. Fluid restriction per nephrology. Patient has elevated troponin and what appears to be new onset CHF. Elevated troponin may be secondary to type II AR from sepsis +/- elevation from CKD. We will follow-up echocardiogram and consult cardiology for further evaluation. Resume home medications of Cardura and Procardia. Add hydralazine IV as needed History Interval history: No new issues overnight Hospitalist Physical - Constitutional Vitals: Temp Pulse Resp BP Pulse Ox 98.0 F 100 H 16 154/100 100 01/03/22 05:04 01/03/22 05:04 01/03/22 05:04 01/03/22 05:04 01/03/22 05:04 General appearance: Present: mild distress - EENT Eyes: Present: PERRL, EOM intact ENT: hearing intact, clear oral mucosa, dentition normal - Neck Neck: Present: supple, normal ROM - Respiratory Respiratory effort: normal Respiratory: bilateral: CTA - Cardiovascular Rhythm: regular Heart Sounds: Present: S1 & S2. Absent: gallop, rub - Extremities Extremities: no ischemia, No edema, Full ROM - Abdominal General gastrointestinal: soft, non-tender, non-distended, normal bowel sounds - Integumentary Integumentary: Present: clear, warm, dry - Neurologic Neurologic: CNII-XII intact, moves all extremities HEART Score - HEART Score Troponin: Troponin T 0.137 ng/mL (0.00-0.029) H* 01/03/22 01:38 Results - Labs CBC & Chem 7: 01/03/22 03:00 01/03/22 03:00 Labs: Laboratory Last Values WBC 7.1 K/mm3 (4.5-11.0) 01/03/22 03:00 RBC 3.38 M/mm3 (3.65-5.03) L 01/03/22 03:00 Hgb 9.0 gm/dl (10.1-14.3) L 01/03/22 03:00 Hct 28.0 % (30.3-42.9) L 01/03/22 03:00 MCV 83 fl (79-97) 01/03/22 03:00 MCH 27 pg (28-32) L 01/03/22 03:00 MCHC 32 % (30-34) 01/03/22 03:00 RDW 14.4 % (13.2-15.2) 01/03/22 03:00 Plt Count 268 K/mm3 (140-440) 01/03/22 03:00 Lymph % (Auto) 5.1 % (13.4-35.0) L 01/03/22 03:00 [place] % (Auto) 5.6 % (0.0-7.3) 01/03/22 03:00 Eos % (Auto) 0.8 % (0.0-4.3) 01/03/22 03:00 Baso % (Auto) 0.1 % (0.0-1.8) 01/03/22 03:00 Lymph # (Auto) 0.4 K/mm3 (1.2-5.4) L 01/03/22 03:00 [place] # (Auto) 0.4 K/mm3 (0.0-0.8) 01/03/22 03:00 Eos # (Auto) 0.1 K/mm3 (0.0-0.4) 01/03/22 03:00 Baso # (Auto) 0.0 K/mm3 (0.0-0.1) 01/03/22 03:00 Seg Neutrophils % 88.4 % (40.0-70.0) H 01/03/22 03:00 Seg Neutrophils # 6.3 K/mm3 (1.8-7.7) 01/03/22 03:00 PT 15.5 Sec. (12.2-14.9) H 01/02/22 13:54 INR 1.10 (0.87-1.13) 01/02/22 13:54 Sodium 141 mmol/L (137-145) 01/03/22 03:00 Potassium 4.4 mmol/L (3.6-5.0) 01/03/22 03:00 Chloride 101.6 mmol/L (98-107) 01/03/22 03:00 Carbon Dioxide 19 mmol/L (22-30) L 01/03/22 03:00 Anion Gap 25 mmol/L 01/03/22 03:00 BUN 76 mg/dL (7-17) H 01/03/22 03:00 Creatinine 4.8 mg/dL (0.6-1.2) H 01/03/22 03:00 Estimated GFR 11 ml/min 01/03/22 03:00 BUN/Creatinine Ratio 16 % 01/03/22 03:00 Glucose 164 mg/dL (65-100) H 01/03/22 03:00 Calcium 9.1 mg/dL (8.4-10.2) 01/03/22 03:00 Total Bilirubin 0.30 mg/dL (0.1-1.2) 01/02/22 13:54 AST 23 units/L (5-40) 01/02/22 13:54 ALT 21 units/L (7-56) 01/02/22 13:54 Alkaline Phosphatase 74 units/L (35-129) 01/02/22 13:54 Troponin T 0.137 ng/mL (0.00-0.029) H* 01/03/22 01:38 NT-Pro-B Natriuret Pep 24604 pg/mL (0-900) H 01/02/22 13:54 Total Protein 7.0 g/dL (6.3-8.2) 01/02/22 13:54 Albumin 4.4 g/dL (3.9-5) 01/02/22 13:54 Albumin/Globulin Ratio 1.7 % 01/02/22 13:54 Triglycerides 177 mg/dL (2-149) H 01/02/22 13:54 Cholesterol 267 mg/dL (50-199) H 01/02/22 13:54 LDL Cholesterol Direct 192 mg/dL (50-130) H 01/02/22 13:54 HDL Cholesterol 52 mg/dL (40-59) 01/02/22 13:54 Cholesterol/HDL Ratio 5.13 % 01/02/22 13:54 Mathew/IV: Voiding Method Toilet Active Medications - Current Medications Current Medications: Generic Name Dose Route Start Last Admin Trade Name Freq PRN Reason Stop Dose Admin Acetaminophen 650 mg 01/02/22 17:32 Acetaminophen 325 Mg Tab PO Q4H PRN Pain MILD(1-3)/Fever >100.5/PULLIAM Albuterol 2.5 mg 01/02/22 17:32 Albuterol 2.5 Mg/3 Ml Nebu IH Q4HRT PRN Shortness Of Breath Ascorbic Acid 500 mg 01/02/22 22:00 01/03/22 09:52 Ascorbic Acid 500 Mg Tab PO 500 mg BID JENNIFER Administration Azithromycin 500 mg 01/03/22 10:00 01/03/22 09:52 Azithromycin 250 Mg Tab PO 500 mg QDAY JENNIFER Administration Protocol Cholecalciferol 1,000 unit 01/03/22 10:00 01/03/22 09:53 Cholecalciferol (Vit D3) 400 Unit Tab PO 1,000 unit QDAY JENNIFER Administration Doxazosin Mesylate 4 mg 01/02/22 22:00 01/02/22 23:53 Doxazosin 4 Mg Tab PO 4 mg QHS JENNIFER Administration Furosemide 20 mg 01/02/22 18:00 01/03/22 06:28 Furosemide 20 Mg/2 Ml Inj IV 20 mg BID@0600,1800 JENNIFER Administration Heparin Sodium (Porcine) 5,000 unit 01/02/22 22:00 01/03/22 09:53 Heparin 5,000 Unit/1 Ml Vial SUB-Q 5,000 unit Q12HR JENNIFER Administration Hydromorphone HCl 0.5 mg 01/02/22 17:32 01/02/22 18:22 Hydromorphone 1 Mg/1 Ml Inj IV 0.5 mg Q13H PRN Administration Pain , Severe (7-10) Ceftriaxone Sodium 2 gm in 100 mls @ 200 mls/hr 01/03/22 10:00 01/03/22 09:52 Rocephin/Ns 2 Gm/100 Ml IV 200 mls/hr Q24H JENNIFER Administration Protocol Methylprednisolone Sodium Succinate 40 mg 01/02/22 22:00 01/03/22 06:28 Methylprednisolone Sod Succinate 40 Mg/1 Ml Inj IV 40 mg Q8HR JENNIFER Administration Nifedipine 60 mg 01/02/22 22:00 01/03/22 09:52 Nifedipine Xl 60 Mg Tab PO 60 mg Q12HR JENNIFER Administration Ondansetron HCl 4 mg 01/02/22 17:32 Ondansetron 4 Mg/2 Ml Inj IV Q8H PRN Nausea And Vomiting Oxycodone/Acetaminophen 1 tab 01/02/22 17:32 01/03/22 09:53 Oxycodone /Acetaminophen 5-325mg Tab PO 1 tab Q6H PRN Administration Pain, Moderate (4-6) Sodium Chloride 10 ml 01/02/22 22:00 01/03/22 09:54 Sodium Chloride 0.9% 10 Ml Flush Syringe IV 10 ml BID JENNIFER Administration Sodium Chloride 10 ml 01/02/22 17:32 Sodium Chloride 0.9% 10 Ml Flush Syringe IV PRN PRN LINE FLUSH Zinc Sulfate 220 mg 01/02/22 22:00 01/03/22 09:52 Zinc Sulfate 220 Mg Cap PO 220 mg BID JENNIFER Administration
[2022-01-03] MEDS ORDERED: hydrALAZINE 20 MG/1 ML INJ IV PRN (10:04)
[2022-01-03] MEDS: ONDANSETRON 4 MG/2 ML INJ IV PRN (19:18)
[2022-01-03] MEDS: DOXAZOSIN 4 MG TAB PO SCH (22:06)
[2022-01-04] MEDS: methylPREDNISolone Sod Succinate 40 MG/1 ML INJ IV SCH ×3 (05:37→22:26)
[2022-01-04] MEDS: ONDANSETRON 4 MG/2 ML INJ IV PRN (05:37)
[2022-01-04] MEDS: FUROSEMIDE 20 MG/2 ML INJ IV SCH (05:37)
[2022-01-04 07:44] LABS: Hematocrit 22.9 % (30.3-42.9); Hemoglobin 7.5 gm/dl (10.1-14.3); Mean Corpuscular HGB Conc 33 % (30-34); Mean Corpuscular Volume 83 fl (79-97); Platelet Count 224 K/mm3 (140-440); Red Blood Count 2.76 M/mm3 (3.65-5.03); Red Cell Distribution Width 14.3 % (13.2-15.2)
[2022-01-04 08:27] LABS: Calcium 8.6 mg/dL (8.4-10.2)
[2022-01-04] MEDS: NIFEdipine XL 60 MG TAB PO SCH ×2 (09:19→22:27)
[2022-01-04] MEDS: AZITHROMYCIN 250 MG TAB PO SCH (09:19)
[2022-01-04] MEDS: ZINC SULFATE 220 MG CAP PO SCH ×2 (09:19→22:26)
[2022-01-04] MEDS: cefTRIAXone/NS 2 GM/100 ML 2 GM/100 ML BAG IV SCH (09:20)
[2022-01-04] MEDS: HEPARIN 5,000 UNIT/1 ML VIAL SUB-Q SCH ×2 (09:20→22:31)
[2022-01-04] MEDS: ASCORBIC ACID 500 MG TAB PO SCH ×2 (09:20→22:26)
--- NOTE | 2022-01-04 09:49 | Progress Note ---
Assessment and Plan Impression: * analia on adv ckd 5--cr 4.8 last offfice visit 07/2021 * Acute hypoxic resp failure * HTN * Covid PUI * Anemia in ESRD * cardiomyopathy * LEIGH ANN PNA vs edema Plan: * follow up renal us and urine lytes * 24hr crcl and protein * in denial about renal function, "states she will never start dialysis" * diuresis as tolerated, will hold today * follow up renal us with pvr * iv abx per primary team * renal diet and strict i/os * follow up on Covid testing negative and management per primary team * fluid restriction * daily lytes Subjective Date of service: 01/04/22 Principal diagnosis: ckd 5 Interval history: still reluctant to hear about degree of renal dysfunction she isin denial about need for dialysis Objective - Exam Narrative Exam: General appearance: Present: mild distress - EENT Eyes: Present: PERRL ENT: hearing intact, clear oral mucosa - Neck Neck: Present: supple - Respiratory Respiratory effort: labored, accessory muscle use, stridor Respiratory: bilateral: diminished, rales - Cardiovascular Heart Sounds: Present: S1 & S2. Absent: rub, click - Extremities Extremity abnormal: edema Peripheral Pulses: within normal limits - Abdominal General gastrointestinal: Present: soft, non-tender, non-distended, normal bowel sounds Female genitourinary: Present: normal - Integumentary Integumentary: Present: clear, warm, dry - Musculoskeletal Musculoskeletal: generalized weakness - Psychiatric Psychiatric: appropriate mood/affect, intact judgment & insight - Neurologic Neurologic: CNII-XII intact, moves all extremities - Vital Signs Vital signs: Vital Signs - 12hr 01/04/22 01/04/22 00:53 07:51 Respiratory 20 Rate Blood Pressure 140/73 O2 Sat by Pulse 98 Oximetry - Lab 01/04/22 07:25 01/04/22 07:25 Most recent lab results Calcium 8.6 mg/dL (8.4-10.2) 01/04/22 07:25 Medications & Allergies - Medications Allergies/Adverse Reactions: Allergies No Known Allergies Allergy (Verified 01/02/22 14:40) Home Medications: Home Medications Medication Instructions Recorded Confirmed Last Taken Type Doxazosin [Cardura] 4 mg PO QHS #30 tablet 03/22/17 01/02/22 Unknown Rx NIFEdipine XL [Procardia Xl] 60 mg PO Q12HR #60 tablet 03/22/17 01/02/22 Unknown Rx predniSONE [Deltasone] 20 mg PO QDAY #10 tablet 03/22/17 01/02/22 Unknown Rx traMADoL [Ultram] 50 mg PO Q6HR PRN #20 tablet 03/22/17 01/02/22 Unknown Rx Active Medications: Generic Name Dose Route Start Last Admin Trade Name Freq PRN Reason Stop Dose Admin Acetaminophen 650 mg 01/02/22 17:32 Acetaminophen 325 Mg Tab PO Q4H PRN Pain MILD(1-3)/Fever >100.5/PULLIAM Albuterol 2.5 mg 01/02/22 17:32 Albuterol 2.5 Mg/3 Ml Nebu IH Q4HRT PRN Shortness Of Breath Ascorbic Acid 500 mg 01/02/22 22:00 01/04/22 09:20 Ascorbic Acid 500 Mg Tab PO 500 mg BID JENNIFER Administration Azithromycin 500 mg 01/03/22 10:00 01/04/22 09:19 Azithromycin 250 Mg Tab PO 500 mg QDAY JENNIFER Administration Protocol Cholecalciferol 1,000 unit 01/03/22 10:00 01/03/22 09:53 Cholecalciferol (Vit D3) 400 Unit Tab PO 1,000 unit QDAY JENNIFER Administration Doxazosin Mesylate 4 mg 01/02/22 22:00 01/03/22 22:06 Doxazosin 4 Mg Tab PO 4 mg QHS JENNIFER Administration Heparin Sodium (Porcine) 5,000 unit 01/02/22 22:00 01/04/22 09:20 Heparin 5,000 Unit/1 Ml Vial SUB-Q 5,000 unit Q12HR JENNIFER Administration Hydralazine HCl 10 mg 01/03/22 10:04 Hydralazine 20 Mg/1 Ml Inj IV Q4HR PRN Blood Pressure Hydromorphone HCl 0.5 mg 01/02/22 17:32 01/02/22 18:22 Hydromorphone 1 Mg/1 Ml Inj IV 0.5 mg Q13H PRN Administration Pain , Severe (7-10) Ceftriaxone Sodium 2 gm in 100 mls @ 200 mls/hr 01/03/22 10:00 01/04/22 09:20 Rocephin/Ns 2 Gm/100 Ml IV 200 mls/hr Q24H JENNIFER Administration Protocol Methylprednisolone Sodium Succinate 40 mg 01/02/22 22:00 01/04/22 05:37 Methylprednisolone Sod Succinate 40 Mg/1 Ml Inj IV 40 mg Q8HR JENNIFER Administration Nifedipine 60 mg 01/02/22 22:00 01/04/22 09:19 Nifedipine Xl 60 Mg Tab PO 60 mg Q12HR JENNIFER Administration Ondansetron HCl 4 mg 01/02/22 17:32 01/04/22 05:37 Ondansetron 4 Mg/2 Ml Inj IV 4 mg Q8H PRN Administration Nausea And Vomiting Oxycodone/Acetaminophen 1 tab 01/02/22 17:32 01/03/22 09:53 Oxycodone /Acetaminophen 5-325mg Tab PO 1 tab Q6H PRN Administration Pain, Moderate (4-6) Sodium Chloride 10 ml 01/02/22 22:00 01/04/22 09:20 Sodium Chloride 0.9% 10 Ml Flush Syringe IV 10 ml BID JENNIFER Administration Sodium Chloride 10 ml 01/02/22 17:32 Sodium Chloride 0.9% 10 Ml Flush Syringe IV PRN PRN LINE FLUSH Zinc Sulfate 220 mg 01/02/22 22:00 01/04/22 09:19 Zinc Sulfate 220 Mg Cap PO 220 mg BID JENNIFER Administration
[2022-01-04 10:38] LABS: Basophils % (Manual) 0 % (0.0-1.8); Eosinophils % (Manual) 0 % (0.0-4.3); Total Cells Counted 100
[2022-01-04 10:39] LABS: Tear Drop Cells Few
[2022-01-04 10:40] LABS: Platelet Estimate Consistent w Auto
[2022-01-04] MEDS: CHOLECALCIFEROL (VIT D3) 1000 UNIT (25 mcg) TAB PO SCH (11:05)
--- NOTE | 2022-01-04 11:18 | Progress Note ---
Assessment and Plan Assessment and plan: 71 YO Female with HTN, CKD presents to ED for evaluation of shortness of breath over the past 2 weeks with persistent and worsening symptoms over the past 1 week. Patient acknowledged dyspnea on exertion, dyspnea at rest, orthopnea, paroxysmal nocturnal dyspnea, decreased exercise tolerance, and lower extremity edema. Patient acknowledged 10 pound weight gain over the past 1 week. EMS was notified and upon arrival the patient was found to be in distress and subsequently transported to [facility] for further care and evaluation of the aforementioned symptoms. The patient was seen and evaluated in the emergency department. All lab and imaging studies reviewed. Patient found to have a pulse oximetry of 86% with exertion which is consistent with acute hypoxemic respiratory failure. Acute hypoxic respiratory failure New onset congestive heart failure A. fib with RVR. Sepsis. 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 The patient's last creatinine was noted to be 4.14 July 2021 Anemia of CKD Cardiomyopathy Accelerated hypertension 01/03/2022. We will continue IV antibiotics for now. Follow-up COVID PCR testing. Continue diuresis per nephrology recommendations. Follow-up renal ultrasound, 24-hour urine. Continue renal diet and strict I/os. Fluid restriction per nephrology. Patient has elevated troponin and what appears to be new onset CHF. Elevated troponin may be secondary to type II RI from sepsis +/- elevation from CKD. We will follow-up echocardiogram and consult cardiology for further evaluation. Resume home medications of Cardura and Procardia. Add hydralazine IV as needed 01/04/2022. Patient complained of nausea and vomiting x4 last night. No new vomi ting this morning. No reports of hematemesis. Patient reportedly had an episode of atrial fibrillation seen on the monitor but currently now in NSR. We will check EKG and await cardiology recommendations. No history of atrial fibrillation documented in the chart. Continue Procardia and Cardura. Continue IV antibiotics. COVID PCR negative. Continue diuresis per nephrology recommendations. Follow-up renal ultrasound, 24-hour urine. Continue renal diet and strict I/os. Fluid restriction per nephrology. History Interval history: Patient complained of nausea and vomiting x4 last night Hospitalist Physical - Constitutional Vitals: Temp Pulse Resp BP Pulse Ox 97.8 F 103 H 20 140/73 98 01/03/22 16:47 01/03/22 16:47 01/04/22 00:53 01/04/22 07:51 01/04/22 00:53 General appearance: Present: mild distress - EENT Eyes: Present: PERRL, EOM intact ENT: hearing intact, clear oral mucosa, dentition normal - Neck Neck: Present: supple, normal ROM - Respiratory Respiratory effort: normal Respiratory: bilateral: CTA - Cardiovascular Rhythm: regular Heart Sounds: Present: S1 & S2. Absent: gallop, rub - Extremities Extremities: no ischemia, No edema, Full ROM - Abdominal General gastrointestinal: soft, non-tender, non-distended, normal bowel sounds - Integumentary Integumentary: Present: clear, warm, dry - Neurologic Neurologic: CNII-XII intact, moves all extremities HEART Score - HEART Score Troponin: Troponin T 0.137 ng/mL (0.00-0.029) H* 01/03/22 01:38 Results - Labs CBC & Chem 7: 01/04/22 07:25 01/04/22 07:25 Labs: Laboratory Last Values WBC 7.9 K/mm3 (4.5-11.0) 01/04/22 07:25 RBC 2.76 M/mm3 (3.65-5.03) L 01/04/22 07:25 Hgb 7.5 gm/dl (10.1-14.3) L 01/04/22 07:25 Hct 22.9 % (30.3-42.9) L 01/04/22 07:25 MCV 83 fl (79-97) 01/04/22 07:25 MCH 27 pg (28-32) L 01/04/22 07:25 MCHC 33 % (30-34) 01/04/22 07:25 RDW 14.3 % (13.2-15.2) 01/04/22 07:25 Plt Count 224 K/mm3 (140-440) 01/04/22 07:25 Lymph % (Auto) 5.1 % (13.4-35.0) L 01/03/22 03:00 [place] % (Auto) 5.6 % (0.0-7.3) 01/03/22 03:00 Eos % (Auto) 0.8 % (0.0-4.3) 01/03/22 03:00 Baso % (Auto) 0.1 % (0.0-1.8) 01/03/22 03:00 Lymph # (Auto) 0.4 K/mm3 (1.2-5.4) L 01/03/22 03:00 [place] # (Auto) 0.4 K/mm3 (0.0-0.8) 01/03/22 03:00 Eos # (Auto) 0.1 K/mm3 (0.0-0.4) 01/03/22 03:00 Baso # (Auto) 0.0 K/mm3 (0.0-0.1) 01/03/22 03:00 Add Manual Diff Complete 01/04/22 07:25 Total Counted 100 01/04/22 07:25 Seg Neutrophils % Pharmacy Benefits Coordinator 01/04/22 07:25 Seg Neuts % (Manual) 89.0 % (40.0-70.0) H 01/04/22 07:25 Band Neutrophils % 0 % 01/04/22 07:25 Lymphocytes % (Manual) 6.0 % (13.4-35.0) L 01/04/22 07:25 Reactive Lymphs % (Man) 0 % 01/04/22 07:25 Monocytes % (Manual) 4.0 % (0.0-7.3) 01/04/22 07:25 Eosinophils % (Manual) 0 % (0.0-4.3) 01/04/22 07:25 Basophils % (Manual) 0 % (0.0-1.8) 01/04/22 07:25 Metamyelocytes % 1.0 % 01/04/22 07:25 Myelocytes % 0 % 01/04/22 07:25 Promyelocytes % 0 % 01/04/22 07:25 Blast Cells % 0 % 01/04/22 07:25 Nucleated RBC % Not Reportable 01/04/22 07:25 Seg Neutrophils # 6.3 K/mm3 (1.8-7.7) 01/03/22 03:00 Seg Neutrophils # Man 7.0 K/mm3 (1.8-7.7) 01/04/22 07:25 Band Neutrophils # 0.0 K/mm3 01/04/22 07:25 Lymphocytes # (Manual) 0.5 K/mm3 (1.2-5.4) L 01/04/22 07:25 Abs React Lymphs (Man) 0.0 K/mm3 01/04/22 07:25 Monocytes # (Manual) 0.3 K/mm3 (0.0-0.8) 01/04/22 07:25 Eosinophils # (Manual) 0.0 K/mm3 (0.0-0.4) 01/04/22 07:25 Basophils # (Manual) 0.0 K/mm3 (0.0-0.1) 01/04/22 07:25 Metamyelocytes # 0.1 K/mm3 01/04/22 07:25 Myelocytes # 0.0 K/mm3 01/04/22 07:25 Promyelocytes # 0.0 K/mm3 01/04/22 07:25 Blast Cells # 0.0 K/mm3 01/04/22 07:25 WBC Morphology Not Reportable 01/04/22 07:25 Hypersegmented Neuts Not Reportable 01/04/22 07:25 Hyposegmented Neuts Not Reportable 01/04/22 07:25 Hypogranular Neuts Not Reportable 01/04/22 07:25 Smudge Cells Not Reportable 01/04/22 07:25 Toxic Granulation Not Reportable 01/04/22 07:25 Toxic Vacuolation Not Reportable 01/04/22 07:25 Dohle Bodies Not Reportable 01/04/22 07:25 Pelger-Huet Anomaly Not Reportable 01/04/22 07:25 Júnior Rods Not Reportable 01/04/22 07:25 Platelet Estimate Consistent w auto 01/04/22 07:25 Clumped Platelets Not Reportable 01/04/22 07:25 Plt Clumps, EDTA Not Reportable 01/04/22 07:25 Large Platelets Not Reportable 01/04/22 07:25 Giant Platelets Not Reportable 01/04/22 07:25 Platelet Satelliting Not Reportable 01/04/22 07:25 Plt Morphology Comment Not Reportable 01/04/22 07:25 RBC Morphology Not Reportable 01/04/22 07:25 Dimorphic RBCs Not Reportable 01/04/22 07:25 Polychromasia Not Reportable 01/04/22 07:25 Hypochromasia Not Reportable 01/04/22 07:25 Poikilocytosis Not Reportable 01/04/22 07:25 Anisocytosis Not Reportable 01/04/22 07:25 Microcytosis Not Reportable 01/04/22 07:25 Macrocytosis Not Reportable 01/04/22 07:25 Spherocytes Not Reportable 01/04/22 07:25 Pappenheimer Bodies Not Reportable 01/04/22 07:25 Sickle Cells Not Reportable 01/04/22 07:25 Target Cells Not Reportable 01/04/22 07:25 Tear Drop Cells Few 01/04/22 07:25 Ovalocytes Not Reportable 01/04/22 07:25 Helmet Cells Not Reportable 01/04/22 07:25 [place] Bodies Not Reportable 01/04/22 07:25 [place] Rings Not Reportable 01/04/22 07:25 Kizzy Cells Not Reportable 01/04/22 07:25 Bite Cells Not Reportable 01/04/22 07:25 Crenated Cell Not Reportable 01/04/22 07:25 Elliptocytes Few 01/04/22 07:25 Acanthocytes (Spur) Few 01/04/22 07:25 Rouleaux Not Reportable 01/04/22 07:25 Hemoglobin C Crystals Not Reportable 01/04/22 07:25 Schistocytes Not Reportable 01/04/22 07:25 Malaria parasites Not Reportable 01/04/22 07:25 Sandro Bodies Not Reportable 01/04/22 07:25 Hem Pathologist Commnt No 01/04/22 07:25 PT 15.5 Sec. (12.2-14.9) H 01/02/22 13:54 INR 1.10 (0.87-1.13) 01/02/22 13:54 Sodium 136 mmol/L (137-145) L 01/04/22 07:25 Potassium 4.6 mmol/L (3.6-5.0) 01/04/22 07:25 Chloride 99.6 mmol/L (98-107) 01/04/22 07:25 Carbon Dioxide 18 mmol/L (22-30) L 01/04/22 07:25 Anion Gap 23 mmol/L 01/04/22 07:25 BUN 89 mg/dL (7-17) H 01/04/22 07:25 Creatinine 5.4 mg/dL (0.6-1.2) H 01/04/22 07:25 Estimated GFR 9 ml/min 01/04/22 07:25 BUN/Creatinine Ratio 16 % 01/04/22 07:25 Glucose 160 mg/dL (65-100) H 01/04/22 07:25 Calcium 8.6 mg/dL (8.4-10.2) 01/04/22 07:25 Total Bilirubin 0.30 mg/dL (0.1-1.2) 01/02/22 13:54 AST 23 units/L (5-40) 01/02/22 13:54 ALT 21 units/L (7-56) 01/02/22 13:54 Alkaline Phosphatase 74 units/L (35-129) 01/02/22 13:54 Troponin T 0.137 ng/mL (0.00-0.029) H* 01/03/22 01:38 NT-Pro-B Natriuret Pep 82140 pg/mL (0-900) H 01/02/22 13:54 Total Protein 7.0 g/dL (6.3-8.2) 01/02/22 13:54 Albumin 4.4 g/dL (3.9-5) 01/02/22 13:54 Albumin/Globulin Ratio 1.7 % 01/02/22 13:54 Triglycerides 177 mg/dL (2-149) H 01/02/22 13:54 Cholesterol 267 mg/dL (50-199) H 01/02/22 13:54 LDL Cholesterol Direct 192 mg/dL (50-130) H 01/02/22 13:54 HDL Cholesterol 52 mg/dL (40-59) 01/02/22 13:54 Cholesterol/HDL Ratio 5.13 % 01/02/22 13:54 Coronavirus (PCR) Negative (Negative) 01/03/22 Unknown Mathew/IV: Voiding Method Toilet Active Medications - Current Medications Current Medications: Generic Name Dose Route Start Last Admin Trade Name Freq PRN Reason Stop Dose Admin Acetaminophen 650 mg 01/02/22 17:32 Acetaminophen 325 Mg Tab PO Q4H PRN Pain MILD(1-3)/Fever >100.5/PULLIAM Albuterol 2.5 mg 01/02/22 17:32 Albuterol 2.5 Mg/3 Ml Nebu IH Q4HRT PRN Shortness Of Breath Ascorbic Acid 500 mg 01/02/22 22:00 05/01/22 09:20 Ascorbic Acid 500 Mg Tab PO 500 mg BID JENNIFER Administration Azithromycin 500 mg 01/03/22 10:00 01/04/22 09:19 Azithromycin 250 Mg Tab PO 500 mg QDAY JENNIFER Administration Protocol Cholecalciferol 1,000 unit 01/04/22 11:00 01/04/22 11:05 Cholecalciferol (Vit D3) 1000 Unit (25 Mcg) Tab PO 1,000 unit QDAY JENNIFER Administration Doxazosin Mesylate 4 mg 01/02/22 22:00 01/03/22 22:06 Doxazosin 4 Mg Tab PO 4 mg QHS JENNIFER Administration Heparin Sodium (Porcine) 5,000 unit 01/02/22 22:00 01/04/22 09:20 Heparin 5,000 Unit/1 Ml Vial SUB-Q 5,000 unit Q12HR JENNIFER Administration Hydralazine HCl 10 mg 01/03/22 10:04 Hydralazine 20 Mg/1 Ml Inj IV Q4HR PRN Blood Pressure Hydromorphone HCl 0.5 mg 01/02/22 17:32 01/02/22 18:22 Hydromorphone 1 Mg/1 Ml Inj IV 0.5 mg Q13H PRN Administration Pain , Severe (7-10) Ceftriaxone Sodium 2 gm in 100 mls @ 200 mls/hr 01/03/22 10:00 01/04/22 09:20 Rocephin/Ns 2 Gm/100 Ml IV 200 mls/hr Q24H JENNIFER Administration Protocol Methylprednisolone Sodium Succinate 40 mg 01/02/22 22:00 01/04/22 05:37 Methylprednisolone Sod Succinate 40 Mg/1 Ml Inj IV 40 mg Q8HR JENNIFER Administration Nifedipine 60 mg 01/02/22 22:00 01/04/22 09:19 Nifedipine Xl 60 Mg Tab PO 60 mg Q12HR JENNIFER Administration Ondansetron HCl 4 mg 01/02/22 17:32 01/04/22 05:37 Ondansetron 4 Mg/2 Ml Inj IV 4 mg Q8H PRN Administration Nausea And Vomiting Oxycodone/Acetaminophen 1 tab 01/02/22 17:32 01/03/22 09:53 Oxycodone /Acetaminophen 5-325mg Tab PO 1 tab Q6H PRN Administration Pain, Moderate (4-6) Sodium Chloride 10 ml 01/02/22 22:00 01/04/22 09:20 Sodium Chloride 0.9% 10 Ml Flush Syringe IV 10 ml BID JENNIFER Administration Sodium Chloride 10 ml 01/02/22 17:32 Sodium Chloride 0.9% 10 Ml Flush Syringe IV PRN PRN LINE FLUSH Zinc Sulfate 220 mg 01/02/22 22:00 01/04/22 09:19 Zinc Sulfate 220 Mg Cap PO 220 mg BID JENNIFER Administration
--- NOTE | 2022-01-04 15:03 | Ultrasound Report ---
ULTRASOUND RENAL ULTRASOUND BLADDER RESIDUAL INDICATION / CLINICAL INFORMATION: renal failure. COMPARISON: None available. FINDINGS: RIGHT KIDNEY: Length = 10.1 cm. - Echogenicity: Echogenic - Cortical Thickness: Normal. - Hydronephrosis: None. - Cyst / Mass: None. - Stones: None seen. LEFT KIDNEY: Length = 7.1 cm. - Echogenicity: Echogenic - Cortical Thickness: Normal. - Hydronephrosis: None. - Cyst / Mass: Subcentimeter cysts at the midportion. - Stones: None seen. URINARY BLADDER: Prevoid bladder measures 6.0 x 6.4 cm. The bladder collapse is after voiding without significant residual. FREE FLUID: None. ADDITIONAL FINDINGS: None. IMPRESSION: 1. Echogenic kidneys compatible with medical renal disease. No hydronephrosis. 2. The bladder collapses after voiding without significant residual. 3. Tiny left renal cysts. Signer Name: Joel Polk MD Signed: 01/04/2022 2:59 PM Workstation Name: [id number]
[2022-01-04] MEDS: DOXAZOSIN 4 MG TAB PO SCH (22:26)
[2022-01-05] MEDS: CHOLECALCIFEROL (VIT D3) 400 UNIT TAB PO SCH (00:19)
[2022-01-05] MEDS: methylPREDNISolone Sod Succinate 40 MG/1 ML INJ IV SCH ×4 (04:44→22:46)
[2022-01-05 05:42] LABS: Alanine Aminotransferase 15 units/L (7-56); Albumin 4.3 g/dL (3.9-5); Blood Urea Nitrogen 93 mg/dL (7-17); Calcium 8.9 mg/dL (8.4-10.2); Hemolysis Index 2
[2022-01-05 05:46] LABS: BUN/Creatinine Ratio 18
--- NOTE | 2022-01-05 08:00 | Progress Note ---
Assessment and Plan Assessment and plan: 71 YO Female with HTN, CKD presents to ED for evaluation of shortness of breath over the past 2 weeks with persistent and worsening symptoms over the past 1 week. Patient acknowledged dyspnea on exertion, dyspnea at rest, orthopnea, paroxysmal nocturnal dyspnea, decreased exercise tolerance, and lower extremity edema. Patient acknowledged 10 pound weight gain over the past 1 week. EMS was notified and upon arrival the patient was found to be in distress and subsequently transported to [facility] for further care and evaluation of the aforementioned symptoms. The patient was seen and evaluated in the emergency department. All lab and imaging studies reviewed. Patient found to have a pulse oximetry of 86% with exertion which is consistent with acute hypoxemic respiratory failure. Acute hypoxic respiratory failure New onset congestive heart failure ? A. fib with RVR vs atrial tachycardia Sepsis. 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 The patient's last creatinine was noted to be 4.14 July 2021 Anemia of CKD Cardiomyopathy Accelerated hypertension 01/03/2022. We will continue IV antibiotics for now. Follow-up COVID PCR testing. Continue diuresis per nephrology recommendations. Follow-up renal ultrasound, 24-hour urine. Continue renal diet and strict I/os. Fluid res triction per nephrology. Patient has elevated troponin and what appears to be new onset CHF. Elevated troponin may be secondary to type II PA from sepsis +/- elevation from CKD. We will follow-up echocardiogram and consult cardiology for further evaluation. Resume home medications of Cardura and Procardia. Add hydralazine IV as needed 01/04/2022. Patient complained of nausea and vomiting x4 last night. No new vomiting this morning. No reports of hematemesis. Patient reportedly had an episode of atrial fibrillation seen on the monitor but currently now in NSR. We will check EKG and await cardiology recommendations. No history of atrial fibrillation documented in the chart. Continue Procardia and Cardura. Continue IV antibiotics. COVID PCR negative. Continue diuresis per nephrology recommendations. Follow-up renal ultrasound, 24-hour urine. Continue renal diet and strict I/os. Fluid restriction per nephrology. 01/05/2022. Renal ultrasound reveals medical renal disease and no evidence of obstruction or hydronephrosis. Nephrology reports patient is resistant to HD. Continue diuresis as tolerated per nephrology. Follow-up 24-hour creatinine clearance and protein. Continue IV antibiotic for sepsis/pneumonia. Follow-up chest x-ray. Echocardiogram reveals systolic and diastolic function normal. LVEF 50-55%. Await cardiology recommendations with regards to possible A. fib with RVR. Patient with an episode yesterday captured on telemetry but patient converted back when EKG was obtained and showed normal sinus rhythm. Continue telemetry monitoring. TSH normal History Interval history: No new issues overnight Hospitalist Physical - Constitutional Vitals: Temp Pulse Resp BP Pulse Ox 97.3 F L 96 H 19 134/70 94 01/05/22 04:33 01/05/22 04:33 01/05/22 04:33 01/05/22 04:33 01/05/22 04:33 General appearance: Present: no acute distress - EENT Eyes: Present: PERRL, EOM intact ENT: hearing intact, clear oral mucosa, dentition normal - Neck Neck: Present: supple, normal ROM - Respiratory Respiratory effort: normal Respiratory: bilateral: CTA - Cardiovascular Rhythm: regular Heart Sounds: Present: S1 & S2. Absent: gallop, rub - Extremities Extremities: no ischemia, No edema, Full ROM - Abdominal General gastrointestinal: soft, non-tender, non-distended, normal bowel sounds - Integumentary Integumentary: Present: clear, warm, dry - Neurologic Neurologic: CNII-XII intact, moves all extremities HEART Score - HEART Score Troponin: Troponin T 0.137 ng/mL (0.00-0.029) H* 01/03/22 01:38 Results - Labs CBC & Chem 7: 01/04/22 07:25 01/05/22 04:55 Labs: Laboratory Last Values WBC 7.9 K/mm3 (4.5-11.0) 01/04/22 07:25 RBC 2.76 M/mm3 (3.65-5.03) L 01/04/22 07:25 Hgb 7.5 gm/dl (10.1-14.3) L 01/04/22 07:25 Hct 22.9 % (30.3-42.9) L 01/04/22 07:25 MCV 83 fl (79-97) 01/04/22 07:25 MCH 27 pg (28-32) L 01/04/22 07:25 MCHC 33 % (30-34) 01/04/22 07:25 RDW 14.3 % (13.2-15.2) 01/04/22 07:25 Plt Count 224 K/mm3 (140-440) 01/04/22 07:25 Lymph % (Auto) 5.1 % (13.4-35.0) L 01/03/22 03:00 [place] % (Auto) 5.6 % (0.0-7.3) 01/03/22 03:00 Eos % (Auto) 0.8 % (0.0-4.3) 01/03/22 03:00 Baso % (Auto) 0.1 % (0.0-1.8) 01/03/22 03:00 Lymph # (Auto) 0.4 K/mm3 (1.2-5.4) L 01/03/22 03:00 [place] # (Auto) 0.4 K/mm3 (0.0-0.8) 01/03/22 03:00 Eos # (Auto) 0.1 K/mm3 (0.0-0.4) 01/03/22 03:00 Baso # (Auto) 0.0 K/mm3 (0.0-0.1) 01/03/22 03:00 Add Manual Diff Complete 01/04/22 07:25 Total Counted 100 01/04/22 07:25 Seg Neutrophils % Pipe Organ Technician 01/04/22 07:25 Seg Neuts % (Manual) 89.0 % (40.0-70.0) H 01/04/22 07:25 Band Neutrophils % 0 % 01/04/22 07:25 Lymphocytes % (Manual) 6.0 % (13.4-35.0) L 01/04/22 07:25 Reactive Lymphs % (Man) 0 % 01/04/22 07:25 Monocytes % (Manual) 4.0 % (0.0-7.3) 01/04/22 07:25 Eosinophils % (Manual) 0 % (0.0-4.3) 01/04/22 07:25 Basophils % (Manual) 0 % (0.0-1.8) 01/04/22 07:25 Metamyelocytes % 1.0 % 01/04/22 07:25 Myelocytes % 0 % 01/04/22 07:25 Promyelocytes % 0 % 01/04/22 07:25 Blast Cells % 0 % 01/04/22 07:25 Nucleated RBC % Not Reportable 01/04/22 07:25 Seg Neutrophils # 6.3 K/mm3 (1.8-7.7) 01/03/22 03:00 Seg Neutrophils # Man 7.0 K/mm3 (1.8-7.7) 01/04/22 07:25 Band Neutrophils # 0.0 K/mm3 01/04/22 07:25 Lymphocytes # (Manual) 0.5 K/mm3 (1.2-5.4) L 01/04/22 07:25 Abs React Lymphs (Man) 0.0 K/mm3 01/04/22 07:25 Monocytes # (Manual) 0.3 K/mm3 (0.0-0.8) 01/04/22 07:25 Eosinophils # (Manual) 0.0 K/mm3 (0.0-0.4) 01/04/22 07:25 Basophils # (Manual) 0.0 K/mm3 (0.0-0.1) 01/04/22 07:25 Metamyelocytes # 0.1 K/mm3 01/04/22 07:25 Myelocytes # 0.0 K/mm3 01/04/22 07:25 Promyelocytes # 0.0 K/mm3 01/04/22 07:25 Blast Cells # 0.0 K/mm3 01/04/22 07:25 WBC Morphology Not Reportable 01/04/22 07:25 Hypersegmented Neuts Not Reportable 01/04/22 07:25 Hyposegmented Neuts Not Reportable 01/04/22 07:25 Hypogranular Neuts Not Reportable 01/04/22 07:25 Smudge Cells Not Reportable 01/04/22 07:25 Toxic Granulation Not Reportable 01/04/22 07:25 Toxic Vacuolation Not Reportable 01/04/22 07:25 Dohle Bodies Not Reportable 01/04/22 07:25 Pelger-Huet Anomaly Not Reportable 01/04/22 07:25 Júnior Rods Not Reportable 01/04/22 07:25 Platelet Estimate Consistent w auto 01/04/22 07:25 Clumped Platelets Not Reportable 01/04/22 07:25 Plt Clumps, EDTA Not Reportable 01/04/22 07:25 Large Platelets Not Reportable 01/04/22 07:25 Giant Platelets Not Reportable 01/04/22 07:25 Platelet Satelliting Not Reportable 01/04/22 07:25 Plt Morphology Comment Not Reportable 01/04/22 07:25 RBC Morphology Not Reportable 01/04/22 07:25 Dimorphic RBCs Not Reportable 01/04/22 07:25 Polychromasia Not Reportable 01/04/22 07:25 Hypochromasia Not Reportable 01/04/22 07:25 Poikilocytosis Not Reportable 01/04/22 07:25 Anisocytosis Not Reportable 01/04/22 07:25 Microcytosis Not Reportable 01/04/22 07:25 Macrocytosis Not Reportable 01/04/22 07:25 Spherocytes Not Reportable 01/04/22 07:25 Pappenheimer Bodies Not Reportable 01/04/22 07:25 Sickle Cells Not Reportable 01/04/22 07:25 Target Cells Not Reportable 01/04/22 07:25 Tear Drop Cells Few 01/04/22 07:25 Ovalocytes Not Reportable 01/04/22 07:25 Helmet Cells Not Reportable 01/04/22 07:25 [place] Bodies Not Reportable 01/04/22 07:25 [place] Rings Not Reportable 01/04/22 07:25 [place] Cells Not Reportable 01/04/22 07:25 Bite Cells Not Reportable 01/04/22 07:25 Crenated Cell Not Reportable 01/04/22 07:25 Elliptocytes Few 01/04/22 07:25 Acanthocytes (Spur) Few 01/04/22 07:25 Rouleaux Not Reportable 01/04/22 07:25 Hemoglobin C Crystals Not Reportable 01/04/22 07:25 Schistocytes Not Reportable 01/04/22 07:25 Malaria parasites Not Reportable 01/04/22 07:25 Sandro Bodies Not Reportable 01/04/22 07:25 Hem Pathologist Commnt No 01/04/22 07:25 PT 15.5 Sec. (12.2-14.9) H 01/02/22 13:54 INR 1.10 (0.87-1.13) 01/02/22 13:54 Sodium 139 mmol/L (137-145) 01/05/22 04:55 Potassium 4.7 mmol/L (3.6-5.0) 01/05/22 04:55 Chloride 102.3 mmol/L (98-107) 01/05/22 04:55 Carbon Dioxide 16 mmol/L (22-30) L 01/05/22 04:55 Anion Gap 25 mmol/L 01/05/22 04:55 BUN 93 mg/dL (7-17) H 01/05/22 04:55 Creatinine 5.3 mg/dL (0.6-1.2) H 01/05/22 04:55 Estimated GFR 10 ml/min 01/05/22 04:55 BUN/Creatinine Ratio 18 % 01/05/22 04:55 Glucose 146 mg/dL (65-100) H 01/05/22 04:55 Calcium 8.9 mg/dL (8.4-10.2) 01/05/22 04:55 Total Bilirubin < 0.20 mg/dL (0.1-1.2) 01/05/22 04:55 AST 15 units/L (5-40) 01/05/22 04:55 ALT 15 units/L (7-56) 01/05/22 04:55 Alkaline Phosphatase 59 units/L (35-129) 01/05/22 04:55 Troponin T 0.137 ng/mL (0.00-0.029) H* 01/03/22 01:38 NT-Pro-B Natriuret Pep 02302 pg/mL (0-900) H 01/02/22 13:54 Total Protein 6.6 g/dL (6.3-8.2) 01/05/22 04:55 Albumin 4.3 g/dL (3.9-5) 01/05/22 04:55 Albumin/Globulin Ratio 1.9 % 01/05/22 04:55 Triglycerides 177 mg/dL (2-149) H 01/02/22 13:54 Cholesterol 267 mg/dL (50-199) H 01/02/22 13:54 LDL Cholesterol Direct 192 mg/dL (50-130) H 01/02/22 13:54 HDL Cholesterol 52 mg/dL (40-59) 01/02/22 13:54 Cholesterol/HDL Ratio 5.13 % 01/02/22 13:54 TSH 0.673 mlU/mL (0.270-4.200) 01/04/22 11:30 Coronavirus (PCR) Negative (Negative) 01/03/22 Unknown Hep Bs Antigen Non-reactive (Negative) 01/04/22 10:38 Hepatitis C Antibody Non-reactive (NonReactive) 01/04/22 10:38 Mathew/IV: Voiding Method Toilet Active Medications - Current Medications Current Medications: Generic Name Dose Route Start Last Admin Trade Name Freq PRN Reason Stop Dose Admin Acetaminophen 650 mg 01/02/22 17:32 Acetaminophen 325 Mg Tab PO Q4H PRN Pain MILD(1-3)/Fever >100.5/PULLIAM Albuterol 2.5 mg 01/02/22 17:32 Albuterol 2.5 Mg/3 Ml Nebu IH Q4HRT PRN Shortness Of Breath Ascorbic Acid 500 mg 01/02/22 22:00 01/04/22 22:26 Ascorbic Acid 500 Mg Tab PO 500 mg BID JENNIFER Administration Azithromycin 500 mg 01/03/22 10:00 01/04/22 09:19 Azithromycin 250 Mg Tab PO 500 mg QDAY [facility] Administration Protocol Cholecalciferol 1,000 unit 01/04/22 11:00 01/04/22 11:05 Cholecalciferol (Vit D3) 1000 Unit (25 Mcg) Tab PO 1,000 unit QDAY [facility] Administration Doxazosin Mesylate 4 mg 01/02/22 22:00 01/04/22 22:26 Doxazosin 4 Mg Tab PO 4 mg QHS [facility] Administration Heparin Sodium (Porcine) 5,000 unit 01/02/22 22:00 01/04/22 22:31 Heparin 5,000 Unit/1 Ml Vial SUB-Q Not Given Q12HR [facility] Hydralazine HCl 10 mg 01/03/22 10:04 Hydralazine 20 Mg/1 Ml Inj IV Q4HR PRN Blood Pressure Hydromorphone HCl 0.5 mg 01/02/22 17:32 01/02/22 18:22 Hydromorphone 1 Mg/1 Ml Inj IV 0.5 mg Q13H PRN Administration Pain , Severe (7-10) Ceftriaxone Sodium 2 gm in 100 mls @ 200 mls/hr 01/03/22 10:00 01/04/22 09:20 Rocephin/Ns 2 Gm/100 Ml IV 200 mls/hr Q24H JENNIFER Administration Protocol Methylprednisolone Sodium Succinate 40 mg 01/02/22 22:00 01/05/22 05:06 Methylprednisolone Sod Succinate 40 Mg/1 Ml Inj IV Not Given Q8HR JENNIFER Nifedipine 60 mg 01/02/22 22:00 01/04/22 22:27 Nifedipine Xl 60 Mg Tab PO 60 mg Q12HR JENNIFER Administration Ondansetron HCl 4 mg 01/02/22 17:32 01/04/22 05:37 Ondansetron 4 Mg/2 Ml Inj IV 4 mg Q8H PRN Administration Nausea And Vomiting Oxycodone/Acetaminophen 1 tab 01/02/22 17:32 01/03/22 09:53 Oxycodone /Acetaminophen 5-325mg Tab PO 1 tab Q6H PRN Administration Pain, Moderate (4-6) Sodium Chloride 10 ml 01/02/22 22:00 01/04/22 22:32 Sodium Chloride 0.9% 10 Ml Flush Syringe IV 10 ml BID JENNIFER Administration Sodium Chloride 10 ml 01/02/22 17:32 Sodium Chloride 0.9% 10 Ml Flush Syringe IV PRN PRN LINE FLUSH Zinc Sulfate 220 mg 01/02/22 22:00 01/04/22 22:26 Zinc Sulfate 220 Mg Cap PO 220 mg BID JENNIFER Administration
--- NOTE | 2022-01-05 08:53 | Progress Note ---
Assessment and Plan Impression: * analia on advanced ckd 5--cr 4.8 last office visit 07/2021 * Acute hypoxic resp failure * HTN * Covid PUI * Anemia in ESRD * cardiomyopathy * LEIGH ANN PNA vs edema * Metabolic Acidosis Plan: * reviewed renal imaging- note echogenic kidneys * Labs stable with creatinine 5.3 * Follow up 24hr crcl * lengthy discussion today with patient and family at bedside- patient adamantly is opposed to starting dialysis even in emergent situations, stating that she would rather have a natural than go on dialysis. States that she has seen friends suffer on dialysis and while she knows the benefits of dialysis, would not want to prolong any suffering * diuresis as tolerated, will hold today as euvolemic on exam * iv abx per primary team * renal diet and strict i/os * fluid restriction * daily lytes * Start NaHCO3 for acidosis * From renal standpoint, can discharge if otherwise stable and will ensure close CKD 5 follow up to address diuretic needs and other CKD issues Subjective Date of service: 01/05/22 Principal diagnosis: ckd 5 Interval history: Patient denies any renal related concerns today, states that she feels well. Denies dyspnea, edema. Family at bedside Objective - Exam Narrative Exam: Constitutional: no acute distress Head: NC/AT Neck: supple Lungs: clear to auscultation CV: RRR, no M/R/G Abdomen: soft, non-tender, bowel sounds present Back: nontender Extremities: no edema, pulses WNL Skin: intact Neuro: no focal deficits, alert and oriented x4 - Vital Signs Vital signs: Vital Signs - 12hr 01/04/22 01/04/22 01/05/22 22:00 23:51 04:33 Temperature 97.3 F L Pulse Rate 96 H Respiratory 18 19 Rate Blood Pressure 140/73 134/70 O2 Sat by Pulse 98 94 Oximetry - Lab 01/04/22 07:25 01/05/22 04:55 Most recent lab results Calcium 8.9 mg/dL (8.4-10.2) 01/05/22 04:55 Medications & Allergies - Medications Allergies/Adverse Reactions: Allergies No Known Allergies Allergy (Verified 01/02/22 14:40) Home Medications: Home Medications Medication Instructions Recorded Confirmed Last Taken Type Doxazosin [Cardura] 4 mg PO QHS #30 tablet 03/22/17 01/02/22 Unknown Rx NIFEdipine XL [Procardia Xl] 60 mg PO Q12HR #60 tablet 03/22/17 01/02/22 Unknown Rx predniSONE [Deltasone] 20 mg PO QDAY #10 tablet 03/22/17 01/02/22 Unknown Rx traMADoL [Ultram] 50 mg PO Q6HR PRN #20 tablet 03/22/17 01/02/22 Unknown Rx Active Medications: Generic Name Dose Route Start Last Admin Trade Name Freq PRN Reason Stop Dose Admin Acetaminophen 650 mg 01/02/22 17:32 Acetaminophen 325 Mg Tab PO Q4H PRN Pain MILD(1-3)/Fever >100.5/PULLIAM Albuterol 2.5 mg 01/02/22 17:32 Albuterol 2.5 Mg/3 Ml Nebu IH Q4HRT PRN Shortness Of Breath Ascorbic Acid 500 mg 01/02/22 22:00 01/04/22 22:26 Ascorbic Acid 500 Mg Tab PO 500 mg BID JENNIFER Administration Azithromycin 500 mg 01/03/22 10:00 01/04/22 09:19 Azithromycin 250 Mg Tab PO 500 mg QDAY [facility] Administration Protocol Cholecalciferol 1,000 unit 01/04/22 11:00 01/04/22 11:05 Cholecalciferol (Vit D3) 1000 Unit (25 Mcg) Tab PO 1,000 unit QDAY JENNIFER Administration Doxazosin Mesylate 4 mg 01/02/22 22:00 01/04/22 22:26 Doxazosin 4 Mg Tab PO 4 mg QHS [facility] Administration Heparin Sodium (Porcine) 5,000 unit 01/02/22 22:00 01/04/22 22:31 Heparin 5,000 Unit/1 Ml Vial SUB-Q Not Given Q12HR [facility] Hydralazine HCl 10 mg 01/03/22 10:04 Hydralazine 20 Mg/1 Ml Inj IV Q4HR PRN Blood Pressure Hydromorphone HCl 0.5 mg 01/02/22 17:32 01/02/22 18:22 Hydromorphone 1 Mg/1 Ml Inj IV 0.5 mg Q13H PRN Administration Pain , Severe (7-10) Ceftriaxone Sodium 2 gm in 100 mls @ 200 mls/hr 01/03/22 10:00 01/04/22 09:20 Rocephin/Ns 2 Gm/100 Ml IV 200 mls/hr Q24H JENNIFER Administration Protocol Methylprednisolone Sodium Succinate 40 mg 01/02/22 22:00 01/05/22 05:06 Methylprednisolone Sod Succinate 40 Mg/1 Ml Inj IV Not Given Q8HR JENNIFER Nifedipine 60 mg 01/02/22 22:00 01/04/22 22:27 Nifedipine Xl 60 Mg Tab PO 60 mg Q12HR JENNIFER Administration Ondansetron HCl 4 mg 01/02/22 17:32 01/04/22 05:37 Ondansetron 4 Mg/2 Ml Inj IV 4 mg Q8H PRN Administration Nausea And Vomiting Oxycodone/Acetaminophen 1 tab 01/02/22 17:32 01/03/22 09:53 Oxycodone /Acetaminophen 5-325mg Tab PO 1 tab Q6H PRN Administration Pain, Moderate (4-6) Sodium Chloride 10 ml 01/02/22 22:00 01/04/22 22:32 Sodium Chloride 0.9% 10 Ml Flush Syringe IV 10 ml BID JENNIFER Administration Sodium Chloride 10 ml 01/02/22 17:32 Sodium Chloride 0.9% 10 Ml Flush Syringe IV PRN PRN LINE FLUSH Zinc Sulfate 220 mg 01/02/22 22:00 01/04/22 22:26 Zinc Sulfate 220 Mg Cap PO 220 mg BID JENNIFER Administration
[2022-01-05] MEDS: NIFEdipine XL 60 MG TAB PO SCH ×2 (10:24→22:45)
[2022-01-05] MEDS: CHOLECALCIFEROL (VIT D3) 1000 UNIT (25 mcg) TAB PO SCH (10:25)
[2022-01-05] MEDS: AZITHROMYCIN 250 MG TAB PO SCH (10:25)
[2022-01-05] MEDS: ZINC SULFATE 220 MG CAP PO SCH ×2 (10:25→22:43)
[2022-01-05] MEDS: ASCORBIC ACID 500 MG TAB PO SCH ×2 (10:25→22:44)
[2022-01-05] MEDS: HEPARIN 5,000 UNIT/1 ML VIAL SUB-Q SCH ×2 (10:26→22:47)
[2022-01-05] MEDS: SODIUM BICARBONATE 650 MG TAB PO SCH ×2 (10:31→22:45)
[2022-01-05] MEDS: cefTRIAXone/NS 2 GM/100 ML 2 GM/100 ML BAG IV SCH (10:31)
--- NOTE | 2022-01-05 12:06 | Consultation ---
History of Present Illness Consult date: 01/05/22 Consult reason: atrial fibrillation, congestive heart failure History of present illness: The patient is a 71-year-old woman with chronic hypertension, who presented to the hospital with complaints of shortness of breath, and hypoxemia with an oxygen saturation of 85% prior to hospital presentation. Findings here included bilateral interstitial edema on chest x-ray, and acute on chronic renal failure with creatinine of 4.8. A COVID-19 test was negative. The patient has been seen by nephrology who recommended initiation of hemodialysis for renal replacement therapy, but patient has adamantly refused this recommendation. Cardiology consultation was requested for evaluation of CHF. In addition, there is a report of the presence of transient, rapid atrial fibrillation. I reviewed the EKGs and telemetry strips. The patient has been in mild sinus tachycardia, with left ventricle hypertrophy and nonspecific ST changes. In one EKG, there was a short burst of atrial tachycardia. I do not see any strips or EKGs that s how a sustained burst of atrial fibrillation. Echocardiogram on this presentation shows very mild left ventricular dysfunction with ejection fraction 45 to 50%. Patient reports no prior cardiac history. She currently is comfortable on bedrest after initial hospital treatment, still refuses consideration of hemodialysis with the knowledge that there is likely to be a recurrence of fluid overload, and elevated risk of recurrent atrial and ventricular tachyarrhythmias in the setting of acid-base and electrolyte imbalance from untreated end-stage renal failure. Past History Past Medical History: hypertension, renal failure Past Surgical History: No surgical history, Other (Reviewed) Social history: Family history: diabetes, hypertension Medications and Allergies Allergies Allergy/AdvReac Type Severity Reaction Status Date / Time No Known Allergies Allergy Verified 01/02/22 14:40 Home Medications Medication Instructions Recorded Confirmed Last Taken Type Doxazosin [Cardura] 4 mg PO QHS #30 tablet 03/22/17 01/02/22 Unknown Rx NIFEdipine XL [Procardia Xl] 60 mg PO Q12HR #60 tablet 03/22/17 01/02/22 Unknown Rx predniSONE [Deltasone] 20 mg PO QDAY #10 tablet 03/22/17 01/02/22 Unknown Rx traMADoL [Ultram] 50 mg PO Q6HR PRN #20 tablet 03/22/17 01/02/22 Unknown Rx Active Meds: Active Medications Acetaminophen (Acetaminophen 325 Mg Tab) 650 mg PO Q4H PRN PRN Reason: Pain MILD(1-3)/Fever >100.5/PULLIAM Albuterol (Albuterol 2.5 Mg/3 Ml Nebu) 2.5 mg IH Q4HRT PRN PRN Reason: Shortness Of Breath Ascorbic Acid (Ascorbic Acid 500 Mg Tab) 500 mg PO BID [facility] Last Admin: 01/05/22 10:25 Dose: 500 mg Azithromycin (Azithromycin 250 Mg Tab) 500 mg PO QDAY [facility]; Protocol Stop: 01/07/22 10:01 Last Admin: 01/05/22 10:25 Dose: 500 mg Cholecalciferol (Cholecalciferol (Vit D3) 1000 Unit (25 Mcg) Tab) 1,000 unit PO QDAY [facility] Last Admin: 01/05/22 10:25 Dose: 1,000 unit Doxazosin Mesylate (Doxazosin 4 Mg Tab) 4 mg PO QHS [facility] Last Admin: 01/04/22 22:26 Dose: 4 mg Heparin Sodium (Porcine) (Heparin 5,000 Unit/1 Ml Vial) 5,000 unit SUB-Q Q12HR [facility] Last Admin: 01/05/22 10:26 Dose: 5,000 unit Hydralazine HCl (Hydralazine 20 Mg/1 Ml Inj) 10 mg IV Q4HR PRN PRN Reason: Blood Pressure Hydromorphone HCl (Hydromorphone 1 Mg/1 Ml Inj) 0.5 mg IV Q13H PRN PRN Reason: Pain , Severe (7-10) Last Admin: 01/02/22 18:22 Dose: 0.5 mg Ceftriaxone Sodium (Rocephin/Ns 2 Gm/100 Ml) 2 gm in 100 mls @ 200 mls/hr IV Q24H [facility]; Protocol Stop: 01/07/22 11:59 Last Admin: 01/05/22 10:31 Dose: 200 mls/hr Methylprednisolone Sodium Succinate (Methylprednisolone Sod Succinate 40 Mg/1 Ml Inj) 40 mg IV Q8HR [facility] Last Admin: 01/05/22 05:06 Dose: Not Given Metoprolol Tartrate (Metoprolol Tartrate 50 Mg Tab) 50 mg PO BID [facility] Nifedipine (Nifedipine Xl 60 Mg Tab) 60 mg PO Q12HR [facility] Last Admin: 01/05/22 10:24 Dose: 60 mg Ondansetron HCl (Ondansetron 4 Mg/2 Ml Inj) 4 mg IV Q8H PRN PRN Reason: Nausea And Vomiting Last Admin: 01/04/22 05:37 Dose: 4 mg Oxycodone/Acetaminophen (Oxycodone /Acetaminophen 5-325mg Tab) 1 tab PO Q6H PRN PRN Reason: Pain, Moderate (4-6) Last Admin: 01/03/22 09:53 Dose: 1 tab Sodium Bicarbonate (Sodium Bicarbonate 650 Mg Tab) 650 mg PO BID [facility] Last Admin: 01/05/22 10:31 Dose: 650 mg Sodium Chloride (Sodium Chloride 0.9% 10 Ml Flush Syringe) 10 ml IV BID [facility] Last Admin: 01/05/22 10:27 Dose: 10 ml Sodium Chloride (Sodium Chloride 0.9% 10 Ml Flush Syringe) 10 ml IV PRN PRN PRN Reason: LINE FLUSH Zinc Sulfate (Zinc Sulfate 220 Mg Cap) 220 mg PO BID [facility] Last Admin: 01/05/22 10:25 Dose: 220 mg Review of Systems Cardiovascular: palpitations, rapid/irregular heart beat, shortness of breath, no chest pain, no orthopnea, no edema, no syncope, no lightheadedness Physical Examination Vital Signs Temp Pulse Resp BP Pulse Ox 98.1 F 108 H 16 160/102 98 01/02/22 12:54 01/02/22 12:54 01/02/22 12:54 01/02/22 12:54 01/02/22 12:54 General appearance: no acute distress HEENT: Positive: PERRL Neck: Positive: neck supple Cardiac: Positive: Reg Rate and Rhythm Lungs: Positive: Decreased Breath Sounds Neuro: Positive: Grossly Intact Abdomen: Positive: Soft Female genitourinary: deferred Skin: Positive: Clear Extremities: Absent: edema Results 01/04/22 07:25 01/05/22 04:55 Cardiac Enzymes 01/05/22 Range/Units 04:55 AST 15 (5-40) units/L Comprehensive Metabolic Panel 01/05/22 Range/Units 04:55 Sodium 139 (137-145) mmol/L Potassium 4.7 (3.6-5.0) mmol/L Chloride 102.3 (98-107) mmol/L Carbon Dioxide 16 L (22-30) mmol/L BUN 93 H (7-17) mg/dL Creatinine 5.3 H (0.6-1.2) mg/dL Glucose 146 H (65-100) mg/dL Calcium 8.9 (8.4-10.2) mg/dL AST 15 (5-40) units/L ALT 15 (7-56) units/L Alkaline Phosphatase 59 (35-129) units/L Total Protein 6.6 (6.3-8.2) g/dL Albumin 4.3 (3.9-5) g/dL EKG interpretations - Telemetry EKG Rhythm: Sinus Tachycardia Assessment and Plan - Patient Problems (1) New onset of congestive heart failure Current Visit: Yes Status: Acute Plan to address problem: Patient presented with fluid overload associated with end-stage renal failure and uncontrolled hypertension. She refuses hemodialysis. We will defer to nephrology for management of diuretic regimen. Long-term prognosis is poor in the absence of renal replacement therapy. (2) Atrial arrhythmia Current Visit: Yes Status: Acute Plan to address problem: I will start patient on metoprolol 50 mg twice daily, with close outpatient follow-up. If any evidence of documented paroxysmal atrial fibrillation in the future, we will consider oral anticoagulation. However at this time with the patient documented with severe anemia hematocrit of 22, and the absence of strips documenting atrial fibrillation, will recommend antiplatelet monotherapy with baby aspirin. (3) Uncontrolled hypertension Current Visit: No Status: Chronic Plan to address problem: Aggressive blood pressure control, patient is currently on nifedipine and Cardura, continue management.
--- NOTE | 2022-01-05 13:13 | Electrocardiograph Report ---
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
--- NOTE | 2022-01-05 13:44 | Electrocardiograph Report ---
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
[2022-01-05] MEDS: METOPROLOL TARTRATE 50 MG TAB PO SCH ×2 (14:33→22:49)
[2022-01-05] MEDS: POLYETHYLENE GLYCOL 3350 17 GM POWDER PO SCH (16:24)
[2022-01-05] MEDS: HYDROmorphone 1 MG/1 ML INJ IV PRN (22:39)
[2022-01-05] MEDS: DOXAZOSIN 4 MG TAB PO SCH (22:50)
[2022-01-06] MEDS: methylPREDNISolone Sod Succinate 40 MG/1 ML INJ IV SCH ×2 (05:22→15:19)
[2022-01-06] MEDS: HYDROmorphone 1 MG/1 ML INJ IV PRN (05:22)
[2022-01-06 09:01] LABS: Basophils % (Auto) 0.1 % (0.0-1.8); Hemoglobin 7.6 gm/dl (10.1-14.3); Lymphocytes # (Auto) 0.3 K/mm3 (1.2-5.4); Lymphocytes % (Auto) 3.9 % (13.4-35.0); Mean Corpuscular HGB Conc 32 % (30-34); Mean Corpuscular Volume 85 fl (79-97); Monocytes # (Auto) 0.5 K/mm3 (0.0-0.8); Platelet Count 228 K/mm3 (140-440); Red Blood Count 2.83 M/mm3 (3.65-5.03); Red Cell Distribution Width 14.3 % (13.2-15.2)
[2022-01-06 09:23] LABS: Alanine Aminotransferase 26 units/L (7-56); Albumin 4.2 g/dL (3.9-5); Blood Urea Nitrogen 102 mg/dL (7-17); Calcium 8.9 mg/dL (8.4-10.2); Hemolysis Index 13
[2022-01-06 09:24] LABS: BUN/Creatinine Ratio 19
--- NOTE | 2022-01-06 09:24 | Progress Note ---
Assessment and Plan Impression: * analia on advanced ckd 5--cr 4.8 last office visit 07/2021 * Acute hypoxic resp failure * HTN * Covid PUI * Anemia in ESRD * cardiomyopathy * LEIGH ANN PNA vs edema * Metabolic Acidosis Plan: * reviewed renal imaging- note echogenic kidneys * Labs stable with creatinine 5.3 * Follow up 24hr crcl * lengthy discussion yesterday and again today with patient and family at bedside- patient adamantly is opposed to starting dialysis even in emergent situations, stating that she would rather have a natural than go on dialysis. States that she has seen friends suffer on dialysis and while she knows the benefits of dialysis, would not want to prolong any suffering * diuresis as tolerated, recommend rx for Lasix 40mg prn (can take BID if needed), discussed with patient, states that she "never has swelling" however * iv abx per primary team * renal diet and strict i/os * fluid restriction * daily lytes * Continue NaHCO3 for acidosis * From renal standpoint, can discharge if otherwise stable and will ensure close CKD 5 follow up to address diuretic needs and other CKD issues, will arrange in next week Subjective Date of service: 01/06/22 Principal diagnosis: ckd 5 Interval history: Patient denies any renal related concerns today, states that she feels well. Denies dyspnea, edema Objective - Exam Narrative Exam: Constitutional: no acute distress Head: NC/AT Neck: supple Lungs: clear to auscultation CV: RRR, no M/R/G Abdomen: soft, non-tender, bowel sounds present Back: nontender Extremities: no edema, pulses WNL Skin: intact Neuro: no focal deficits, alert and oriented x4 - Vital Signs Vital signs: Vital Signs - 12hr 01/05/22 01/05/22 01/05/22 22:19 22:49 22:50 Temperature 97.6 F Pulse Rate 84 84 83 Respiratory 16 Rate Blood Pressure 123/74 123/74 123/74 O2 Sat by Pulse 93 Oximetry 01/06/22 05:31 Temperature Pulse Rate Respiratory 18 Rate Blood Pressure O2 Sat by Pulse 99 Oximetry - Lab 01/06/22 08:39 01/05/22 04:55 Most recent lab results Calcium 8.9 mg/dL (8.4-10.2) 01/05/22 04:55 Medications & Allergies - Medications Allergies/Adverse Reactions: Allergies No Known Allergies Allergy (Verified 01/02/22 14:40) Home Medications: Home Medications Medication Instructions Recorded Confirmed Last Taken Type Doxazosin [Cardura] 4 mg PO QHS #30 tablet 03/22/17 01/02/22 Unknown Rx NIFEdipine XL [Procardia Xl] 60 mg PO Q12HR #60 tablet 03/22/17 01/02/22 Unknown Rx predniSONE [Deltasone] 20 mg PO QDAY #10 tablet 03/22/17 01/02/22 Unknown Rx traMADoL [Ultram] 50 mg PO Q6HR PRN #20 tablet 03/22/17 01/02/22 Unknown Rx Active Medications: Generic Name Dose Route Start Last Admin Trade Name Freq PRN Reason Stop Dose Admin Acetaminophen 650 mg 01/02/22 17:32 Acetaminophen 325 Mg Tab PO Q4H PRN Pain MILD(1-3)/Fever >100.5/PULLIAM Albuterol 2.5 mg 01/02/22 17:32 Albuterol 2.5 Mg/3 Ml Nebu IH Q4HRT PRN Shortness Of Breath Ascorbic Acid 500 mg 01/02/22 22:00 01/05/22 22:44 Ascorbic Acid 500 Mg Tab PO 500 mg BID JENNIFER Administration Azithromycin 500 mg 01/03/22 10:00 01/05/22 10:25 Azithromycin 250 Mg Tab PO 01/07/22 10:01 500 mg QDAY JENNIFER Administration Protocol Cholecalciferol 1,000 unit 01/04/22 11:00 01/05/22 10:25 Cholecalciferol (Vit D3) 1000 Unit (25 Mcg) Tab PO 1,000 unit QDAY JENNIFER Administration Doxazosin Mesylate 4 mg 01/02/22 22:00 01/05/22 22:50 Doxazosin 4 Mg Tab PO 4 mg QHS JENNIFER Administration Heparin Sodium (Porcine) 5,000 unit 01/02/22 22:00 01/05/22 22:47 Heparin 5,000 Unit/1 Ml Vial SUB-Q 5,000 unit Q12HR JENNIFER Administration Hydralazine HCl 10 mg 01/03/22 10:04 Hydralazine 20 Mg/1 Ml Inj IV Q4HR PRN Blood Pressure Hydromorphone HCl 0.5 mg 01/02/22 17:32 01/06/22 05:22 Hydromorphone 1 Mg/1 Ml Inj IV 0.5 mg Q13H PRN Administration Pain , Severe (7-10) Ceftriaxone Sodium 2 gm in 100 mls @ 200 mls/hr 01/03/22 10:00 01/05/22 10:31 Rocephin/Ns 2 Gm/100 Ml IV 01/07/22 11:59 200 mls/hr Q24H JENNIFER Administration Protocol Methylprednisolone Sodium Succinate 40 mg 01/02/22 22:00 01/06/22 05:22 Methylprednisolone Sod Succinate 40 Mg/1 Ml Inj IV 40 mg Q8HR JENNIFER Administration Metoprolol Tartrate 50 mg 01/05/22 12:00 01/05/22 22:49 Metoprolol Tartrate 50 Mg Tab PO 50 mg BID JENNIFER Administration Nifedipine 60 mg 01/02/22 22:00 01/05/22 22:45 Nifedipine Xl 60 Mg Tab PO 60 mg Q12HR JENNIFER Administration Ondansetron HCl 4 mg 01/02/22 17:32 01/04/22 05:37 Ondansetron 4 Mg/2 Ml Inj IV 4 mg Q8H PRN Administration Nausea And Vomiting Oxycodone/Acetaminophen 1 tab 01/02/22 17:32 01/03/22 09:53 Oxycodone /Acetaminophen 5-325mg Tab PO 1 tab Q6H PRN Administration Pain, Moderate (4-6) Polyethylene Glycol 17 gm 01/05/22 16:00 01/05/22 16:24 Polyethylene Glycol 3350 17 Gm Powder PO 17 gm QDAY JENNIFER Administration Sodium Bicarbonate 650 mg 01/05/22 10:00 01/05/22 22:45 Sodium Bicarbonate 650 Mg Tab PO 650 mg BID JENNIFER Administration Sodium Chloride 10 ml 01/02/22 22:00 01/05/22 22:47 Sodium Chloride 0.9% 10 Ml Flush Syringe IV 10 ml BID JENNIFER Administration Sodium Chloride 10 ml 01/02/22 17:32 Sodium Chloride 0.9% 10 Ml Flush Syringe IV PRN PRN LINE FLUSH Zinc Sulfate 220 mg 01/02/22 22:00 01/05/22 22:43 Zinc Sulfate 220 Mg Cap PO 220 mg BID JENNIFER Administration
--- NOTE | 2022-01-06 10:02 | Discharge Summary ---
Providers - Providers Date of Admission: 01/02/22 17:32 Attending physician: XIN CHAIDEZ MD 01/02/22 15:41 Consult to Physician [CONS] Urgent Comment: Consulting Provider: LUPE GRAY Physician Instructions: Reason For Exam: pulmonary edema, elevated trop Consult to Physician [CONS] Urgent Comment: Consulting Provider: PANCHITO ALEXANDER Physician Instructions: Reason For Exam: acute on chronic renal failure 01/04/22 11:15 Consult to Physician [CONS] Routine Comment: Consulting Provider: LUPE GRAY Physician Instructions: Reason For Exam: new CHF, afib RVR Primary care physician: GERARDO DOHERTY Hospitalization Reason for admission: Shortness of Condition: Stable Hospital course: 71 YO Female with HTN, CKD presents to ED for evaluation of shortness of breath over the past 2 weeks with persistent and worsening symptoms over the past 1 week. Patient acknowledged dyspnea on exertion, dyspnea at rest, orthopnea, paroxysmal nocturnal dyspnea, decreased exercise tolerance, and lower extremity edema. Patient acknowledged 10 pound weight gain over the past 1 week. EMS was notified and upon arrival the patient was found to be in distress and subsequently transported to [facility] for further care and evaluation of the aforementioned symptoms. The patient was seen and evaluated in the emergency department. All lab and imaging studies reviewed. Patient found to have a pulse oximetry of 86% with exertion which is consistent with acute hypoxemic respiratory failure. Acute hypoxic respiratory failure New onset congestive heart failure presumed diastolic Atrial tachycardia Sepsis. 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 The patient's last creatinine was noted to be 4.14 July 2021 Anemia of CKD Cardiomyopathy Accelerated hypertension Hyperkalemia 01/03/2022. We will continue IV antibiotics for now. Follow-up COVID PCR testing. Continue diuresis per nephrology recommendations. Follow-up renal ultrasound, 24-hour urine. Continue renal diet and strict I/os. Fluid restriction per nephrology. Patient has elevated troponin and what appears to be new onset CHF. Elevated troponin may be secondary to type II WA from sepsis +/- elevation from CKD. We will follow-up echocardiogram and consult cardiology for further evaluation. Resume home medications of Cardura and Procardia. Add hydralazine IV as needed 01/04/2022. Patient complained of nausea and vomiting x4 last night. No new vomiting this morning. No reports of hematemesis. Patient reportedly had an episode of atrial fibrillation seen on the monitor but currently now in NSR. We will check EKG and await cardiology recommendations. No history of atrial fibrillation documented in the chart. Continue Procardia and Cardura. Continue IV antibiotics. COVID PCR negative. Continue diuresis per nephrology re commendations. Follow-up renal ultrasound, 24-hour urine. Continue renal diet and strict I/os. Fluid restriction per nephrology. 01/05/2022. Renal ultrasound reveals medical renal disease and no evidence of obstruction or hydronephrosis. Nephrology reports patient is resistant to HD. Continue diuresis as tolerated per nephrology. Follow-up 24-hour creatinine clearance and protein. Continue IV antibiotic for sepsis/pneumonia. Follow-up chest x-ray. Echocardiogram reveals systolic and diastolic function normal. LVEF 50-55%. Await cardiology recommendations with regards to possible A. fib with RVR. Patient with an episode yesterday captured on telemetry but patient converted back when EKG was obtained and showed normal sinus rhythm. Continue telemetry monitoring. TSH normal 01/06: Patient seen and examined today discussed extensively her shortness of breath and she remains to volume overload likely due to her worsening renal function updated HD. She vehemently refused HD as documented above. This has also been discussed with her granddaughter. Cardiology did evaluate the patient did not perceive any atrial fibrillation at this time no anticoagulation is required or recommended. The patient repeatedly again that she would rather than do daily. She otherwise would like to remain a full code. I did let her know that she can follow-up with her doctors outpatient and at any time if she changes her mind this can be initiated she otherwise was counseled about the high mortality associated with compliance. Also discussed with the professor of anthropology who recommended initiation of Lasix 40 mg daily patient will follow up in therapy labs for also noted hyperkalemia. 35mins advance care planning, wants to remain full code Refused me speaking with granddaughter Disposition: HOME / SELF CARE / HOMELESS Final Discharge Diagnosis (Prints w/discharge instructions): Acute hypoxic respiratory failure. New onset congestive heart failure presumed diastolic. Atrial tachycardia. Sepsis. Patient meets criteria given the tachycardia, tachypnea and diagnosis of pneumonia. Bilateral pneumonia. acute kidney injury on advanced CKD 5. The patient's last creatinine was noted to be 4.14 July 2021. Anemia of CKD. Cardiomyopathy. Accelerated hypertension. Hyperkalemia Time spent for discharge: 35 mins Core Measure Documentation - Palliative Care Palliative Care/ Comfort Measures: Not Applicable - Core Measures Any of the following diagnoses?: heart failure - Heart Failure Discharge Requirements GUILLE/ARB for LVSD if EF <40%: No Reason for no GUILLE/ARB: Renal impairment Beta koby at discharge: Yes Exam - Physical Exam Narrative exam: VITAL SIGNS: Reviewed. GENERAL: The patient appears normally developed, Vital signs as documented. HEAD: No signs of head trauma. EYES: Pupils are equal. Extraocular motions intact. EARS: Hearing grossly intact. MOUTH: Oropharynx is normal. NECK: No adenopathy, no JVD. CHEST: Chest with clear breath sounds bilaterally. No wheezes, rales, or rhonchi. CARDIAC: Regular rate and rhythm. S1 and S2, without murmurs, gallops, or rubs. VASCULAR: No Edema. Peripheral pulses normal and equal in all extremities. ABDOMEN: Soft, non tender and non distended. No rebound or guarding, and no masses palpated. Bowel Sounds normal. MUSCULOSKELETAL: Good range of motion of all major joints. Extremities without clubbing, cyanosis or edema. NEUROLOGIC EXAM: Alert and oriented x 3 No focal sensory or strength deficits. Speech normal. Follows commands. PSYCHIATRIC: Mood normal. SKIN: detail exam as documented in skin assessment - Constitutional Vitals: Temp Pulse Resp BP Pulse Ox 97.6 F 83 18 123/74 99 01/05/22 22:19 01/05/22 22:50 01/06/22 05:31 01/05/22 22:50 01/06/22 05:31 Plan Activity: advance as tolerated, fall precautions Diet: renal Special Instructions: record daily weights, record daily BP diary, record blood sugar diary, physical therapy (outpatient), occupational therapy (outpatient) Care Plan Goals: Must follow with physicians Must repeat Basic Metabolic Profile lab in 2-3 days considering renal failure and hyperkalemia Follow up with: GERARDO DOHERTY MD [Primary Care Provider] - 7 Days PABLO DRAKE MD [Staff Physician] - 7 Days LUPE GRAY MD [Staff Physician] - 7 Days Prescriptions: Ferrous Sulfate [Feosol 325 MG tab] 325 mg PO BID #60 tablet Furosemide [Lasix TAB] 40 mg PO QDAY #30 tablet Metoprolol [Lopressor TAB] 50 mg PO BID #60 tablet polyethylene glycoL 3350 [Miralax 3350] 17 gm PO QDAY #30 powd.pack Sodium Bicarbonate 650 mg PO BID #60 tablet Ascorbic Acid [Vitamin C] 500 mg PO BID #30 tablet Cholecalciferol Vit D3 [Vitamin D3 1,000 UNIT TAB] 1,000 unit PO QDAY #30 tablet Azithromycin [Zithromax TAB] 500 mg PO QDAY #3 tablet Ondansetron [Zofran Odt] 4 mg PO Q8HR #30 tab.mildred
[2022-01-06] MEDS: POLYETHYLENE GLYCOL 3350 17 GM POWDER PO SCH (10:46)
[2022-01-06] MEDS: cefTRIAXone/NS 2 GM/100 ML 2 GM/100 ML BAG IV SCH (10:46)
[2022-01-06] MEDS: SODIUM BICARBONATE 650 MG TAB PO SCH (10:46)
[2022-01-06] MEDS: ZINC SULFATE 220 MG CAP PO SCH (10:47)
[2022-01-06] MEDS: ASCORBIC ACID 500 MG TAB PO SCH (10:47)
[2022-01-06] MEDS: HEPARIN 5,000 UNIT/1 ML VIAL SUB-Q SCH (10:47)
[2022-01-06] MEDS: AZITHROMYCIN 250 MG TAB PO SCH (10:47)
[2022-01-06] MEDS: CHOLECALCIFEROL (VIT D3) 1000 UNIT (25 mcg) TAB PO SCH (10:47)
[2022-01-06] MEDS: NIFEdipine XL 60 MG TAB PO SCH (10:47)
[2022-01-06] MEDS: METOPROLOL TARTRATE 50 MG TAB PO SCH (10:54)
[2022-01-06] MEDS ORDERED: SODIUM POLYSTYRENE 15 GM/60 ML ORAL LIQD PO ONE (11:00)
[2022-01-06 12:59] VITALS: BP 134/73
== END 2022-01-06 17:25 | disposition home or self-care (01) | DRG 871 ==
LOC: ED 12:48 → 3A 17:32
PROVIDERS: ADMIT Internal Medicine; ATTEND Internal Medicine
PROC: 5A09457 Assistance with Respiratory Ventilation, 24-96 Consecutive Hours, Continuous Positive Airway Pressure (ICD-10-PCS; principal; 2022-01-04)
DX: A41.9 Sepsis, unspecified organism (principal); J96.01 Acute respiratory failure with hypoxia; N18.6 End stage renal disease; J18.9 Pneumonia, unspecified organism; I16.1 Hypertensive emergency; I13.2 Hypertensive heart and chronic kidney disease with heart failure and with stage 5 chronic kidney disease, or end stage renal disease; N17.9 Acute kidney failure, unspecified; I42.9 Cardiomyopathy, unspecified; I50.30 Unspecified diastolic (congestive) heart failure; Z20.822 Contact with and (suspected) exposure to COVID-19; I25.10 Atherosclerotic heart disease of native coronary artery without angina pectoris; D63.1 Anemia in chronic kidney disease; E87.5 Hyperkalemia; R77.8 Other specified abnormalities of plasma proteins; Z83.3 Family history of diabetes mellitus; Z82.49 Family history of ischemic heart disease and other diseases of the circulatory system
CPT/HCPCS: 36415; 71045; 76770; 76857; 80048; 80053; 80061; 83880; 84443; 84484; 85007; 85025; 85610; 86706; 86803; 93005; 93306; 94640; 96374; 96375; 99291; G0378; C8929; J0360; J0696; J1170; J1644; J1940; J2405; J2920; U0003

== ENCOUNTER 2022-02-18 19:52 | Inpatient (IN) | payer MEDICARE ==
[2022-02-19 05:51] LABS: Hematocrit 27.6 % (30.3-42.9); Hemoglobin 8.7 gm/dl (10.1-14.3); Mean Corpuscular HGB Conc 31 % (30-34); Mean Corpuscular Volume 88 fl (79-97); Platelet Count 250 K/mm3 (140-440); Red Blood Count 3.13 M/mm3 (3.65-5.03); Red Cell Distribution Width 16.1 % (13.2-15.2)
[2022-02-19 06:22] LABS: Calcium 9.4 mg/dL (8.4-10.2)
[2022-02-19 06:35] LABS: Chol/HDL Ratio 4.72 %
--- NOTE | 2022-02-19 06:35 | XRay Report ---
CHEST 2 VIEWS INDICATION / CLINICAL INFORMATION: sob. COMPARISON: Chest x-ray 01/02/2022 FINDINGS: SUPPORT DEVICES: None. HEART / MEDIASTINUM: Borderline Cardiomegaly, stable. LUNGS / PLEURA: Emphysematous changes are suggested. Small dependent left pleural effusion. Minimal b lunting of the right costophrenic angle. No pneumothorax. BONES: No significant osseous abnormality. ADDITIONAL FINDINGS: No significant additional findings. IMPRESSION: 1. Small dependent pleural effusions are suggested, left greater than right. 2. Emphysematous changes are not excluded. No superimposed acute pathology is clearly suggested. Signer Name: Tank Padilla II, MD Signed: 02/19/2022 6:30 AM Workstation Name: [id number]
[2022-02-19] MEDS ORDERED: ALBUTEROL 2.5 MG/3 ML NEBU IH ONE (07:25)
--- NOTE | 2022-02-19 09:49 | Emergency Department Report ---
ED Shortness of Breath HPI - General Chief Complaint: Dyspnea/Respdistress Stated Complaint: SOB Time Seen by Provider: 02/19/22 07:20 Source: patient Mode of arrival: Ambulatory Limitations: No Limitations - History of Present Illness Initial Comments: shortness of breath that worsened today, pt was hospitalized approx 1 month ago and diagnosed with CHF, pt prescribed new blood pressure medications, diuretics, pt states she has been taking the medications followed up with PCP last and was prescribed ABX along with refills for the BP meds and diuretics. Pt states today the shortness of breath became unbearable "I just don't feel good" MD Complaint: shortness of breath -: days(s) Pain Scale: 4 Improves With: oxygen, rest Worsens With: exertion Known History Of: congestive heart failure - Related Data Previous Rx's Medication Instructions Recorded Last Taken Type Doxazosin [Cardura] 4 mg PO QHS #30 tablet 03/22/17 Unknown Rx NIFEdipine XL [Procardia Xl] 60 mg PO Q12HR #60 tablet 03/22/17 Unknown Rx predniSONE [Deltasone] 20 mg PO QDAY #10 tablet 03/22/17 Unknown Rx traMADoL [Ultram 50 MG tab] 50 mg PO Q6HR PRN #20 tablet 03/22/17 Unknown Rx Ascorbic Acid [Vitamin C] 500 mg PO BID #30 tablet 01/06/22 Unknown Rx Azithromycin [Zithromax TAB] 500 mg PO QDAY #3 tablet 01/06/22 Unknown Rx Cholecalciferol Vit D3 [Vitamin D3 1,000 unit PO QDAY #30 tablet 01/06/22 Unknown Rx 1,000 UNIT TAB] Ferrous Sulfate [Feosol 325 MG tab] 325 mg PO BID #60 tablet 01/06/22 Unknown Rx Furosemide [Lasix TAB] 40 mg PO QDAY #30 tablet 01/06/22 Unknown Rx Metoprolol [Lopressor TAB] 50 mg PO BID #60 tablet 01/06/22 Unknown Rx Ondansetron [Zofran Odt] 4 mg PO Q8HR #30 tab.rapdis 01/06/22 Unknown Rx Sodium Bicarbonate 650 mg PO BID #60 tablet 01/06/22 Unknown Rx polyethylene glycoL 3350 [Miralax 17 gm PO QDAY #30 powd.pack 01/06/22 Unknown Rx 3350] Allergies Allergy/AdvReac Type Severity Reaction Status Date / Time No Known Allergies Allergy Verified 01/02/22 14:40 ED Review of Systems ROS: Stated complaint: SOB Other details as noted in HPI Constitutional: denies: chills, fever Eyes: denies: eye pain, eye discharge, vision change ENT: denies: ear pain, throat pain Respiratory: denies: cough, shortness of breath, wheezing Cardiovascular: denies: chest pain, palpitations Endocrine: no symptoms reported Gastrointestinal: denies: abdominal pain, nausea, diarrhea Genitourinary: denies: urgency, dysuria, discharge Musculoskeletal: denies: back pain, joint swelling, arthralgia Skin: denies: rash, lesions Neurological: denies: headache, weakness, paresthesias Psychiatric: denies: anxiety, depression Hematological/Lymphatic: denies: easy bleeding, easy bruising ED Past Medical Hx - Past Medical History Previous Medical History?: Yes Hx Hypertension: Yes Hx Congestive Heart Failure: Yes Hx Renal Disease: Yes (KISHAN) - Surgical History Past Surgical History?: No - Social History Smoking Status: Never Smoker Substance Use Type: None - Medications Home Medications: Home Medications Medication Instructions Recorded Confirmed Last Taken Type Doxazosin [Cardura] 4 mg PO QHS #30 tablet 03/22/17 01/02/22 Unknown Rx NIFEdipine XL [Procardia Xl] 60 mg PO Q12HR #60 tablet 03/22/17 01/02/22 Unknown Rx predniSONE [Deltasone] 20 mg PO QDAY #10 tablet 03/22/17 01/02/22 Unknown Rx traMADoL [Ultram 50 MG tab] 50 mg PO Q6HR PRN #20 tablet 03/22/17 01/02/22 Unknown Rx Ascorbic Acid [Vitamin C] 500 mg PO BID #30 tablet 01/06/22 Unknown Rx Azithromycin [Zithromax TAB] 500 mg PO QDAY #3 tablet 01/06/22 Unknown Rx Cholecalciferol Vit D3 [Vitamin D3 1,000 unit PO QDAY #30 tablet 01/06/22 Unknown Rx 1,000 UNIT TAB] Ferrous Sulfate [Feosol 325 MG tab] 325 mg PO BID #60 tablet 01/06/22 Unknown Rx Furosemide [Lasix TAB] 40 mg PO QDAY #30 tablet 01/06/22 Unknown Rx Metoprolol [Lopressor TAB] 50 mg PO BID #60 tablet 01/06/22 Unknown Rx Ondansetron [Zofran Odt] 4 mg PO Q8HR #30 tab.rapdis 01/06/22 Unknown Rx Sodium Bicarbonate 650 mg PO BID #60 tablet 01/06/22 Unknown Rx polyethylene glycoL 3350 [Miralax 17 gm PO QDAY #30 powd.pack 01/06/22 Unknown Rx 3350] ED Physical Exam - General Limitations: No Limitations General appearance: alert, in distress - Head Head exam: Present: atraumatic, normocephalic - Eye Eye exam: Present: normal appearance - ENT ENT exam: Present: mucous membranes moist - Neck Neck exam: Present: normal inspection - Respiratory Respiratory exam: Present: respiratory distress, rales, accessory muscle use, decreased breath sounds - Cardiovascular Cardiovascular Exam: Present: normal rhythm, tachycardia. Absent: systolic murmur, diastolic murmur, rubs, gallop - GI/Abdominal GI/Abdominal exam: Present: soft, normal bowel sounds - Extremities Exam Extremities exam: Present: normal inspection - Back Exam Back exam: Present: normal inspection - Neurological Exam Neurological exam: Present: alert, oriented X3 - Psychiatric Psychiatric exam: Present: normal affect, normal mood - Skin Skin exam: Present: warm, dry, intact, normal color. Absent: rash ED Course Vital Signs 02/18/22 02/18/22 02/18/22 20:08 20:20 22:36 Temperature 98.3 F Pulse Rate 127 H 120 H 82 Respiratory 16 18 Rate Blood Pressure 200/123 Blood Pressure 143/91 [Right] O2 Sat by Pulse 96 100 Oximetry ED Medical Decision Making - Lab Data Result diagrams: 02/19/22 05:27 02/19/22 05:27 - Radiology Data Radiology results: report reviewed, image reviewed - Medical Decision Making work up showed CHF exacerbation rt given lasix and BP stablised , will admit for chf exacerbation Critical care attestation.: If time is entered above; I have spent that time in minutes in the direct care of this critically ill patient, excluding procedure time. ED Disposition Clinical Impression: CHF exacerbation, SOB (shortness of breath), CKD (chronic kidney disease) Disposition: ADMITTED INPATIENT Is pt being admited?: Yes Does the pt Need Aspirin: No Condition: Stable Referrals: PRIMARY CARE, [Primary Care Provider] - 3-5 Days
--- NOTE | 2022-02-19 10:22 | Electrocardiograph Report ---
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
[2022-02-19] MEDS ORDERED: ALBUTEROL 2.5 MG/3 ML NEBU IH NR (10:30)
--- NOTE | 2022-02-19 13:29 | History and Physical Report ---
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 Initial evaluation consistent with chest congestion, found to be in acute exacerbation of chronic systolic congestive heart failure as well as acute on chronic kidney disease. Chest x-ray findings consistent with small dependent pleural effusions left larger than right emphysematous changes with proBNP of 35,000 mild elevation of troponins Past History Past Medical History: heart failure, hypertension, renal failure Past Surgical History: No surgical history Social history: denies: smoking, alcohol abuse, prescription drug abuse Family history: no significant family history Medications and Allergies Allergies Allergy/AdvReac Type Severity Reaction Status Date / Time No Known Allergies Allergy Verified 01/02/22 14:40 Home Medications Medication Instructions Recorded Confirmed Last Taken Type Doxazosin [Cardura] 4 mg PO QHS #30 tablet 03/22/17 01/02/22 Unknown Rx NIFEdipine XL [Procardia Xl] 60 mg PO Q12HR #60 tablet 03/22/17 01/02/22 Unknown Rx predniSONE [Deltasone] 20 mg PO QDAY #10 tablet 03/22/17 01/02/22 Unknown Rx traMADoL [Ultram 50 MG tab] 50 mg PO Q6HR PRN #20 tablet 03/22/17 01/02/22 Unknown Rx Ascorbic Acid [Vitamin C] 500 mg PO BID #30 tablet 01/06/22 Unknown Rx Azithromycin [Zithromax TAB] 500 mg PO QDAY #3 tablet 01/06/22 Unknown Rx Cholecalciferol Vit D3 [Vitamin D3 1,000 unit PO QDAY #30 tablet 01/06/22 Unknown Rx 1,000 UNIT TAB] Ferrous Sulfate [Feosol 325 MG tab] 325 mg PO BID #60 tablet 01/06/22 Unknown Rx Furosemide [Lasix TAB] 40 mg PO QDAY #30 tablet 01/06/22 Unknown Rx Metoprolol [Lopressor TAB] 50 mg PO BID #60 tablet 01/06/22 Unknown Rx Ondansetron [Zofran Odt] 4 mg PO Q8HR #30 tab.rapdis 01/06/22 Unknown Rx Sodium Bicarbonate 650 mg PO BID #60 tablet 01/06/22 Unknown Rx polyethylene glycoL 3350 [Miralax 17 gm PO QDAY #30 powd.pack 01/06/22 Unknown Rx 3350] Review of Systems Constitutional: fatigue, weakness, no weight loss, no weight gain Ears, nose, mouth and throat: no nasal congestion, no nasal discharge Cardiovascular: orthopnea, shortness of breath, dyspnea on exertion, no chest pain Respiratory: shortness of breath, dyspnea on exertion, no cough, no hemoptysis Gastrointestinal: no abdominal pain, no nausea, no vomiting Genitourinary Female: no flank pain, no dysuria Musculoskeletal: no myalgias, no arthritis Integumentary: no rash, no lesions Neurological: weakness, no tingling, no seizures Psychiatric: no anxiety, no depression Endocrine: no cold intolerance, no heat intolerance Hematologic/Lymphatic: no easy bruising, no easy bleeding Allergic/Immunologic: no urticaria, no allergic rhinitis Exam - Constitutional Vitals: Temp Pulse Resp BP Pulse Ox 98.3 F 82 18 143/91 100 02/18/22 20:08 02/18/22 22:36 02/18/22 22:36 02/18/22 22:36 02/18/22 22:36 General appearance: Present: mild distress, well-nourished, other (Mild shortness of breath) - EENT Eyes: Present: PERRL, EOM intact - Neck Neck: Present: supple, normal ROM - Respiratory Respiratory effort: normal Respiratory: bilateral: diminished, rales, negative: rhonchi, wheezing - Cardiovascular Rhythm: regular Heart Sounds: Present: S1 & S2 - Extremities Extremities: no ischemia Extremity abnormal: edema - Abdominal General gastrointestinal: Present: soft, non-tender, non-distended, normal bowel sounds - Integumentary Integumentary: Present: clear, warm - Musculoskeletal Musculoskeletal: strength equal bilaterally, generalized weakness - Psychiatric Psychiatric: appropriate mood/affect, cooperative - Neurologic Neurologic: moves all extremities HEART Score - HEART Score Troponin: Troponin T 0.067 ng/mL (0.00-0.029) H 02/19/22 05:27 Results - Labs CBC & Chem 7: 02/19/22 05:27 02/19/22 05:27 Labs: Abnormal lab results 02/19/22 02/19/22 Range/Units 05:27 05:27 RBC 3.13 L (3.65-5.03) M/mm3 Hgb 8.7 L (10.1-14.3) gm/dl Hct 27.6 L (30.3-42.9) % RDW 16.1 H (13.2-15.2) % Potassium 5.3 H (3.6-5.0) mmol/L Chloride 111.4 H (98-107) mmol/L Carbon Dioxide 13 L (22-30) mmol/L BUN 84 H (7-17) mg/dL Creatinine 5.8 H (0.6-1.2) mg/dL Glucose 124 H (65-100) mg/dL AST 180 H (5-40) units/L ALT 150 H (7-56) units/L Troponin T 0.067 H (0.00-0.029) ng/mL NT-Pro-B Natriuret Pep 73844 H (0-900) pg/mL Cholesterol 222 H (50-199) mg/dL LDL Cholesterol Direct 153 H (50-130) mg/dL Assessment and Plan -- Acute exacerbation of chronic systolic congestive heart failure; IV diuretics, beta-blockers, no GUILLE inhibitors in view of renal failure, input output monitoring Daily weights,Low-sodium diet, fluid restriction, cardiology consult -- Acute on chronic kidney disease stage 4 Closely monitor renal function, avoid nephrotoxin Renal dosing of medications, nephrology consult -- Hypertension; Moderate control, continue current antihypertensives As needed medications -- Sinus tachycardia; Continue beta-blockers supportive care -- Hyperkalemia; Kayexalate, monitor electrolytes -- Transaminitis; Probably due to liver congestion Closely monitor transaminases Consider ultrasound of the abdomen and liver if needed --Dyslipidemia; Continue statin -- DVT prophylaxis; Heparin renal dose -- Advance care planning; 30 minutes Patient's condition, diagnosis explained, treatment plan discussed with the patient Informed that consultants will see the patient, prognosis, discharge planning Answered all the patient's questions Preventive care planning; 30 minutes Patient strongly advised to comply with medications, diet and follow-up visits Closely monitor the patient and adjust management as needed Plan of care reviewed with the patient and her nurse
[2022-02-19] MEDS ORDERED: ONDANSETRON 4 MG/2 ML INJ IV PRN (13:30)
[2022-02-19] MEDS ORDERED: ACETAMINOPHEN 325 MG TAB PO PRN (13:30)
[2022-02-19] MEDS ORDERED: MORPHINE 4 MG/1 ML INJ IV PRN (13:30)
[2022-02-19 20:57] LABS: Calcium 8.9 mg/dL (8.4-10.2)
[2022-02-19] MEDS: METOPROLOL TARTRATE 50 MG TAB PO SCH (23:09)
[2022-02-19] MEDS: NIFEdipine XL 60 MG TAB PO SCH (23:09)
[2022-02-19] MEDS: DOXAZOSIN 4 MG TAB PO SCH (23:10)
[2022-02-19] MEDS: FERROUS SULFATE 325 MG TAB PO SCH (23:10)
[2022-02-19] MEDS: HEPARIN 5,000 UNIT/1 ML VIAL SUB-Q SCH (23:10)
[2022-02-20 05:45] LABS: Alanine Aminotransferase 122 units/L (7-56); Albumin 3.6 g/dL (3.9-5); Blood Urea Nitrogen 87 mg/dL (7-17); Calcium 8.4 mg/dL (8.4-10.2); Hemolysis Index 2
[2022-02-20 05:46] LABS: BUN/Creatinine Ratio 15; Bilirubin,Direct < 0.2 mg/dL (0-0.2)
[2022-02-20] MEDS: FUROSEMIDE 40 MG/4 ML INJ IV SCH ×3 (06:22→17:19)
[2022-02-20] MEDS: POLYETHYLENE GLYCOL 3350 17 GM POWDER PO SCH (10:33)
[2022-02-20] MEDS: FERROUS SULFATE 325 MG TAB PO SCH ×2 (10:34→22:11)
[2022-02-20] MEDS: METOPROLOL TARTRATE 50 MG TAB PO SCH ×2 (10:34→22:12)
[2022-02-20] MEDS: NIFEdipine XL 60 MG TAB PO SCH (10:34)
[2022-02-20] MEDS: HEPARIN 5,000 UNIT/1 ML VIAL SUB-Q SCH ×2 (10:34→22:11)
--- NOTE | 2022-02-20 16:14 | Progress Note ---
Assessment and Plan Assessment and plan: -- Acute exacerbation of chronic systolic congestive heart failure; IV diuretics, beta-blockers, no GUILLE inhibitors in view of renal failure, input output monitoring Daily weights,Low-sodium diet, fluid restriction, cardiology consult -- Acute on chronic kidney disease stage 4 Closely monitor renal function, avoid nephrotoxin Renal dosing of medications, nephrology consult -- Hypertension; Moderate control, continue current antihypertensives As needed medications -- Sinus tachycardia; Continue beta-blockers supportive care -- Hyperkalemia; Kayexalate, monitor electrolytes -- Transaminitis; Probably due to liver congestion Closely monitor transaminases Consider ultrasound of the abdomen and liver if needed --Dyslipidemia; Continue statin -- DVT prophylaxis; Heparin renal dose --Medical noncompliance; Patient strongly advised to comply with medications diet follow-up visits Patient verbalized understanding however has not been taking medicines for some time - Advance care planning; 30 minutes Patient's condition, diagnosis explained, treatment plan discussed with the patient Informed that consultants will see the patient, prognosis, discharge planning Answered all the patient's questions Preventive care planning; 30 minutes Patient strongly advised to comply with medications, diet and follow-up visits Closely monitor the patient and adjust management as needed Plan of care reviewed with the patient and her nurse History Interval history: I have seen and examined the patient at the bedside Patient's chart and medications reviewed No new events reported by the nursing Patient feels slightly short of breath significantly improved since yesterday Vital signs noted Hospitalist Physical - Constitutional Vitals: Temp Pulse Resp BP Pulse Ox 98.4 F 71 16 128/75 97 02/20/22 06:51 02/20/22 06:51 02/20/22 06:51 02/20/22 06:51 02/20/22 06:51 General appearance: Present: mild distress, well-nourished - EENT Eyes: Present: PERRL, EOM intact - Neck Neck: Present: supple, normal ROM - Respiratory Respiratory effort: normal Respiratory: bilateral: diminished, rales, negative: rhonchi, wheezing - Cardiovascular Rhythm: regular Heart Sounds: Present: S1 & S2 - Extremities Extremities: no ischemia, No edema - Abdominal General gastrointestinal: soft, non-tender, non-distended, normal bowel sounds - Integumentary Integumentary: Present: clear, warm - Psychiatric Psychiatric: appropriate mood/affect, cooperative - Neurologic Neurologic: CNII-XII intact, moves all extremities HEART Score - HEART Score Troponin: Troponin T 0.067 ng/mL (0.00-0.029) H 02/19/22 05:27 Results - Labs CBC & Chem 7: 02/19/22 05:27 02/20/22 05:01 Labs: Laboratory Last Values WBC 6.8 K/mm3 (4.5-11.0) 02/19/22 05:27 RBC 3.13 M/mm3 (3.65-5.03) L 02/19/22 05:27 Hgb 8.7 gm/dl (10.1-14.3) L 02/19/22 05:27 Hct 27.6 % (30.3-42.9) L 02/19/22 05:27 MCV 88 fl (79-97) 02/19/22 05:27 MCH 28 pg (28-32) 02/19/22 05:27 MCHC 31 % (30-34) 02/19/22 05:27 RDW 16.1 % (13.2-15.2) H 02/19/22 05:27 Plt Count 250 K/mm3 (140-440) 02/19/22 05:27 Sodium 142 mmol/L (137-145) 02/20/22 05:01 Potassium 4.6 mmol/L (3.6-5.0) 02/20/22 05:01 Chloride 110.2 mmol/L (98-107) H 02/20/22 05:01 Carbon Dioxide 15 mmol/L (22-30) L 02/20/22 05:01 Anion Gap 21 mmol/L 02/20/22 05:01 BUN 87 mg/dL (7-17) H 02/20/22 05:01 Creatinine 5.7 mg/dL (0.6-1.2) H 02/20/22 05:01 Estimated GFR 9 ml/min 02/20/22 05:01 BUN/Creatinine Ratio 15 % 02/20/22 05:01 Glucose 123 mg/dL (65-100) H 02/20/22 05:01 Calcium 8.4 mg/dL (8.4-10.2) 02/20/22 05:01 Magnesium 2.40 mg/dL (1.7-2.3) H 02/20/22 05:01 Total Bilirubin 0.30 mg/dL (0.1-1.2) 02/20/22 05:01 Direct Bilirubin < 0.2 mg/dL (0-0.2) 02/20/22 05:01 Indirect Bilirubin 0.1 mg/dL 02/20/22 05:01 AST 94 units/L (5-40) H 02/20/22 05:01 ALT 122 units/L (7-56) H 02/20/22 05:01 Alkaline Phosphatase 76 units/L (35-129) 02/20/22 05:01 Troponin T 0.067 ng/mL (0.00-0.029) H 02/19/22 05:27 NT-Pro-B Natriuret Pep 48565 pg/mL (0-900) H 02/19/22 05:27 Total Protein 5.4 g/dL (6.3-8.2) L 02/20/22 05:01 Albumin 3.6 g/dL (3.9-5) L 02/20/22 05:01 Albumin/Globulin Ratio 2.0 % 02/20/22 05:01 Triglycerides 133 mg/dL (2-149) 02/19/22 05:27 Cholesterol 222 mg/dL (50-199) H 02/19/22 05:27 LDL Cholesterol Direct 153 mg/dL (50-130) H 02/19/22 05:27 HDL Cholesterol 47 mg/dL (40-59) 02/19/22 05:27 Cholesterol/HDL Ratio 4.72 % 02/19/22 05:27 Mathew/IV: Voiding Method Bedpan Active Medications - Current Medications Current Medications: Generic Name Dose Route Start Last Admin Trade Name Freq PRN Reason Stop Dose Admin Acetaminophen 650 mg 02/19/22 13:30 Acetaminophen 325 Mg Tab PO Q4H PRN Pain MILD(1-3)/Fever >100.5/PULLIAM Doxazosin Mesylate 4 mg 02/19/22 22:00 02/19/22 23:10 Doxazosin 4 Mg Tab PO 4 mg QHS JENNIFER Administration Ferrous Sulfate 325 mg 02/19/22 22:00 02/20/22 10:34 Ferrous Sulfate 325 Mg Tab PO 325 mg BID JENNIFER Administration Furosemide 40 mg 02/19/22 18:00 02/20/22 10:33 Furosemide 40 Mg/4 Ml Inj IV Not Given 0600,1800 COUNT INCLUDES [facility] Heparin Sodium (Porcine) 5,000 unit 02/19/22 22:00 02/20/22 10:34 Heparin 5,000 Unit/1 Ml Vial SUB-Q 5,000 unit Q12HR JENNIFER Administration Metoprolol Tartrate 50 mg 02/19/22 22:00 02/20/22 10:34 Metoprolol Tartrate 50 Mg Tab PO 50 mg BID JENNIFER Administration Morphine Sulfate 2 mg 02/19/22 13:30 Morphine 4 Mg/1 Ml Inj IV Q6H PRN Pain , Severe (7-10) Nifedipine 60 mg 02/19/22 22:00 02/20/22 10:34 Nifedipine Xl 60 Mg Tab PO 60 mg Q12HR JENNIFER Administration Ondansetron HCl 4 mg 02/19/22 13:30 Ondansetron 4 Mg/2 Ml Inj IV Q8H PRN Nausea And Vomiting Oxycodone/Acetaminophen 1 tab 02/19/22 13:30 Oxycodone /Acetaminophen 5-325mg Tab PO Q6H PRN Pain, Moderate (4-6) Polyethylene Glycol 17 gm 02/20/22 10:00 02/20/22 10:33 Polyethylene Glycol 3350 17 Gm Powder PO 17 gm QDAY JENNIFER Administration Sodium Chloride 10 ml 02/19/22 22:00 02/20/22 10:34 Sodium Chloride 0.9% 10 Ml Flush Syringe IV 10 ml BID JENNIFER Administration Sodium Chloride 10 ml 02/19/22 13:30 Sodium Chloride 0.9% 10 Ml Flush Syringe IV PRN PRN LINE FLUSH
--- NOTE | 2022-02-20 16:16 | Consultation ---
History of Present Illness - Reason for Consult Consult date: 02/20/22 end stage renal disease - History of Present Illness Mrs. Kern is a 71yo with stage V CKD who presents to the ED with worsening shortness of breath. She hospitalized approx 1 month ago w/ similar symptoms and diagnosed with CHF. She presented to my office on Jan 29 2022 following hospital discharge. At that time, she reported nonadherence to medications as she thought they were making her ill. Patient has been advised of need for dialysis at multiple [facility] office visits. However, patient has refused dialysis. Past History Past Medical History: heart failure, hypertension, renal failure Past Surgical History: No surgical history Social history: denies: smoking, alcohol abuse, prescription drug abuse Family history: no significant family history Medications and Allergies Allergies Allergy/AdvReac Type Severity Reaction Status Date / Time No Known Allergies Allergy Verified 01/02/22 14:40 Home Medications Medication Instructions Recorded Confirmed Last Taken Type Doxazosin [Cardura] 4 mg PO QHS #30 tablet 03/22/17 02/20/22 02/07/22 Rx NIFEdipine XL [Procardia Xl] 60 mg PO Q12HR #60 tablet 03/22/17 02/20/22 02/07/22 Rx predniSONE [Deltasone] 20 mg PO QDAY #10 tablet 03/22/17 02/20/22 02/07/22 Rx traMADoL [Ultram 50 MG tab] 50 mg PO Q6HR PRN #20 tablet 03/22/17 02/20/22 Unknown Rx Ascorbic Acid [Vitamin C] 500 mg PO BID #30 tablet 01/06/22 02/20/22 02/07/22 Rx Azithromycin [Zithromax TAB] 500 mg PO QDAY #3 tablet 01/06/22 02/20/22 02/07/22 Rx Cholecalciferol Vit D3 [Vitamin D3 1,000 unit PO QDAY #30 tablet 01/06/22 02/20/22 02/07/22 Rx 1,000 UNIT TAB] Ferrous Sulfate [Feosol 325 MG tab] 325 mg PO BID #60 tablet 01/06/22 02/20/22 02/07/22 Rx Furosemide [Lasix TAB] 40 mg PO QDAY #30 tablet 01/06/22 02/20/22 02/07/22 Rx Metoprolol [Lopressor TAB] 50 mg PO BID #60 tablet 01/06/22 02/20/22 02/07/22 Rx Ondansetron [Zofran Odt] 4 mg PO Q8HR #30 tab.rapdis 01/06/22 02/20/22 02/07/22 Rx Sodium Bicarbonate 650 mg PO BID #60 tablet 01/06/22 02/20/22 02/07/22 Rx polyethylene glycoL 3350 [Miralax 17 gm PO QDAY #30 powd.pack 01/06/22 02/20/22 02/07/22 Rx 3350] Active Meds: Active Medications Acetaminophen (Acetaminophen 325 Mg Tab) 650 mg PO Q4H PRN PRN Reason: Pain MILD(1-3)/Fever >100.5/PULLIAM Doxazosin Mesylate (Doxazosin 4 Mg Tab) [address] [facility] Last Admin: 02/19/22 23:10 Dose: 4 mg Ferrous Sulfate (Ferrous Sulfate 325 Mg Tab) [address] [facility] Last Admin: 02/20/22 10:34 Dose: 325 mg Furosemide (Furosemide 40 Mg/4 Ml Inj) 40 mg IV 0600,1800 [facility] Last Admin: 02/20/22 10:33 Dose: Not Given Heparin Sodium (Porcine) (Heparin 5,000 Unit/1 Ml Vial) 5,000 unit SUB-Q Q12HR [facility] Last Admin: 02/20/22 10:34 Dose: 5,000 unit Metoprolol Tartrate (Metoprolol Tartrate 50 Mg Tab) [address] [facility] Last Admin: 02/20/22 10:34 Dose: 50 mg Morphine Sulfate (Morphine 4 Mg/1 Ml Inj) 2 mg IV Q6H PRN PRN Reason: Pain , Severe (7-10) Nifedipine (Nifedipine Xl 60 Mg Tab) [address] [facility] Last Admin: 02/20/22 10:34 Dose: 60 mg Ondansetron HCl (Ondansetron 4 Mg/2 Ml Inj) 4 mg IV Q8H PRN PRN Reason: Nausea And Vomiting Oxycodone/Acetaminophen (Oxycodone /Acetaminophen 5-325mg Tab) 1 tab PO Q6H PRN PRN Reason: Pain, Moderate (4-6) Polyethylene Glycol (Polyethylene Glycol 3350 17 Gm Powder) [address] [facility] Last Admin: 02/20/22 10:33 Dose: 17 gm Sodium Chloride (Sodium Chloride 0.9% 10 Ml Flush Syringe) 10 ml IV BID JENNIFER Last Admin: 02/20/22 10:34 Dose: 10 ml Sodium Chloride (Sodium Chloride 0.9% 10 Ml Flush Syringe) 10 ml IV PRN PRN PRN Reason: LINE FLUSH Review of Systems All systems: negative Exam - Vital Signs Vital signs: Vital Signs Temp Pulse Resp BP Pulse Ox 98.3 F 127 H 16 200/123 96 02/18/22 20:08 02/18/22 20:08 02/18/22 20:08 02/18/22 20:08 02/18/22 20:08 - General Appearance General appearance: well-developed, well-nourished EENT: ATNC Respiratory: Decreased Breath Sounds Heart: S1S2 Gastrointestinal: Absent: distended Integumentary: warm and dry Psychiatric: cooperative Results - Lab Results 02/19/22 05:27 02/21/22 04:28 Most recent lab results Calcium 8.4 mg/dL (8.4-10.2) 02/20/22 05:01 Magnesium 2.40 mg/dL (1.7-2.3) H 02/20/22 05:01 Assessment and Plan Impression: * Stage V chronic kidney disease * Pulmonary edema * Metabolic acidosis * Hypertension * Anemia in CKD Plan: * Patient has been advised of need to start dialysis at multiple office visits (Jan 29 2022, Jul 14 2021 and May 19 2021). Patient has continued to refuse dialysis. At last visit on January 29, palliative care/hospice was discussed with patient. Need for dialysis again addressed with patient today. She again refuses and asks if physicians receive a "bonus check" for patients on dialysis. * Continue current management * Diuresis per cardiology * Continue Na Bicarbonate * Dose medications for renal function * Recommend hospice care as patient continues to decline dialysis
--- NOTE | 2022-02-20 17:43 | Consultation ---
History of Present Illness Consult date: 02/20/22 Consult reason: congestive heart failure History of present illness: Patient is a 71-year-old woman who was hospitalized here a month ago with fluid overload due to end-stage renal disease and severe uncontrolled hypertension. On echocardiogram, left ventricular systolic ejection fraction was well- preserved at 40 to 45%. She was recommended dialysis for fluid and electrolyte management, but adamantly refused, ultimately sent home on conservative medical therapy. She is readmitted with increasing shortness of breath, fatigue and on this current presentation her systolic blood pressure was over 200. She states that she has been compliant with her antiplatelet hypertensive medications, and has had to outpatient follow-ups with her utilization management manager and PCP. She reports her blood pressure was not severely elevated on each of those visits. She has no chest pain, no palpitations, no lower extremity edema. Laboratory studies show end-stage renal failure with a creatinine of 5.8. EKG is sinus tachycardia 120, left ventricle hypertrophy with repolarization abnormalities of LVH. Chest x-ray shows bilateral small pleural effusions, worse on the left. There is borderline cardiomegaly. The lung barnes appear to show chronic emphysematous changes, but no evidence of significant interstitial edema. Past History Past Medical History: heart failure, hypertension, renal failure Past Surgical History: No surgical history Social history: denies: smoking, alcohol abuse, prescription drug abuse Family history: no significant family history Medications and Allergies Allergies Allergy/AdvReac Type Severity Reaction Status Date / Time No Known Allergies Allergy Verified 01/02/22 14:40 Home Medications Medication Instructions Recorded Confirmed Last Taken Type Doxazosin [Cardura] 4 mg PO QHS #30 tablet 03/22/17 02/20/22 02/07/22 Rx NIFEdipine XL [Procardia Xl] 60 mg PO Q12HR #60 tablet 03/22/17 02/20/22 02/07/22 Rx predniSONE [Deltasone] 20 mg PO QDAY #10 tablet 03/22/17 02/20/22 02/07/22 Rx traMADoL [Ultram 50 MG tab] 50 mg PO Q6HR PRN #20 tablet 03/22/17 02/20/22 Unknown Rx Ascorbic Acid [Vitamin C] 500 mg PO BID #30 tablet 01/06/22 02/20/22 02/07/22 Rx Azithromycin [Zithromax TAB] 500 mg PO QDAY #3 tablet 01/06/22 02/20/22 02/07/22 Rx Cholecalciferol Vit D3 [Vitamin D3 1,000 unit PO QDAY #30 tablet 01/06/22 02/20/22 02/07/22 Rx 1,000 UNIT TAB] Ferrous Sulfate [Feosol 325 MG tab] 325 mg PO BID #60 tablet 01/06/22 02/20/22 02/07/22 Rx Furosemide [Lasix TAB] 40 mg PO QDAY #30 tablet 01/06/22 02/20/22 02/07/22 Rx Metoprolol [Lopressor TAB] 50 mg PO BID #60 tablet 01/06/22 02/20/22 02/07/22 Rx Ondansetron [Zofran Odt] 4 mg PO Q8HR #30 tab.rapdis 01/06/22 02/20/22 02/07/22 Rx Sodium Bicarbonate 650 mg PO BID #60 tablet 01/06/22 02/20/22 02/07/22 Rx polyethylene glycoL 3350 [Miralax 17 gm PO QDAY #30 powd.pack 01/06/22 02/20/22 02/07/22 Rx 3350] Active Meds: Active Medications Acetaminophen (Acetaminophen 325 Mg Tab) 650 mg PO Q4H PRN PRN Reason: Pain MILD(1-3)/Fever >100.5/PULLIAM Doxazosin Mesylate (Doxazosin 4 Mg Tab) 4 mg PO QHS [facility] Last Admin: 02/19/22 23:10 Dose: 4 mg Ferrous Sulfate (Ferrous Sulfate 325 Mg Tab) 325 mg PO BID [facility] Last Admin: 02/20/22 10:34 Dose: 325 mg Furosemide (Furosemide 40 Mg/4 Ml Inj) 40 mg IV 0600,1800 [facility] Last Admin: 02/20/22 17:19 Dose: 40 mg Heparin Sodium (Porcine) (Heparin 5,000 Unit/1 Ml Vial) 5,000 unit SUB-Q Q12HR [facility] Last Admin: 02/20/22 10:34 Dose: 5,000 unit Metoprolol Tartrate (Metoprolol Tartrate 50 Mg Tab) 50 mg PO BID [facility] Last Admin: 02/20/22 10:34 Dose: 50 mg Morphine Sulfate (Morphine 4 Mg/1 Ml Inj) 2 mg IV Q6H PRN PRN Reason: Pain , Severe (7-10) Nifedipine (Nifedipine Xl 60 Mg Tab) 60 mg PO Q12HR [facility] Last Admin: 02/20/22 10:34 Dose: 60 mg Ondansetron HCl (Ondansetron 4 Mg/2 Ml Inj) 4 mg IV Q8H PRN PRN Reason: Nausea And Vomiting Oxycodone/Acetaminophen (Oxycodone /Acetaminophen 5-325mg Tab) 1 tab PO Q6H PRN PRN Reason: Pain, Moderate (4-6) Polyethylene Glycol (Polyethylene Glycol 3350 17 Gm Powder) 17 gm PO QDAY [facility] Last Admin: 02/20/22 10:33 Dose: 17 gm Sodium Chloride (Sodium Chloride 0.9% 10 Ml Flush Syringe) 10 ml IV BID [facility] Last Admin: 02/20/22 10:34 Dose: 10 ml Sodium Chloride (Sodium Chloride 0.9% 10 Ml Flush Syringe) 10 ml IV PRN PRN PRN Reason: LINE FLUSH Review of Systems Cardiovascular: orthopnea, shortness of breath, no chest pain, no palpitations, no rapid/irregular heart beat, no edema, no syncope, no lightheadedness Physical Examination Vital Signs Temp Pulse Resp BP Pulse Ox 98.3 F 127 H 16 200/123 96 02/18/22 20:08 02/18/22 20:08 02/18/22 20:08 02/18/22 20:08 02/18/22 20:08 General appearance: mild distress HEENT: Positive: PERRL Neck: Positive: neck supple Cardiac: Positive: Reg Rate and Rhythm Lungs: Positive: Decreased Breath Sounds Neuro: Positive: Grossly Intact Abdomen: Positive: Soft Female genitourinary: deferred Skin: Positive: Clear Extremities: Absent: edema Results 02/19/22 05:27 02/20/22 05:01 Cardiac Enzymes 02/20/22 Range/Units 05:01 AST 94 H (5-40) units/L Comprehensive Metabolic Panel 02/19/22 02/20/22 Range/Units 20:12 05:01 Sodium 143 142 (137-145) mmol/L Potassium 4.8 4.6 (3.6-5.0) mmol/L Chloride 104.7 110.2 H (98-107) mmol/L Carbon Dioxide 16 L 15 L (22-30) mmol/L BUN 86 H 87 H (7-17) mg/dL Creatinine 5.6 H 5.7 H (0.6-1.2) mg/dL Glucose 155 H 123 H (65-100) mg/dL Calcium 8.9 8.4 (8.4-10.2) mg/dL Direct Bilirubin < 0.2 (0-0.2) mg/dL Indirect Bilirubin 0.1 mg/dL AST 94 H (5-40) units/L ALT 122 H (7-56) units/L Alkaline Phosphatase 76 (35-129) units/L Total Protein 5.4 L (6.3-8.2) g/dL Albumin 3.6 L (3.9-5) g/dL EKG interpretations - Telemetry EKG Rhythm: Sinus Tachycardia (With left ventricle hypertrophy and repolar ization abnormalities of LVH) Assessment and Plan - Patient Problems (1) Volume overload Current Visit: Yes Status: Acute Plan to address problem: Patient presents with recurrent fluid overload, heart failure with preserved ejection fraction, volume overload due to end-stage renal failure and severe uncontrolled hypertension. Patient is still adamant in her refusal to undergo dialysis. We will continue medical therapy to optimize antihypertensive therapy, continue diuretics as tolerated. Further cardiac evaluation and management will depend on clinical course.
[2022-02-20] MEDS ORDERED: cloNIDine 0.1 MG TAB PO PRN (17:47)
[2022-02-20] MEDS: DOXAZOSIN 4 MG TAB PO SCH (22:13)
[2022-02-21] MEDS: oxyCODONE /ACETAMINOPHEN 5-325MG TAB PO PRN ×2 (01:03→15:42)
[2022-02-21] MEDS: NIFEdipine XL 60 MG TAB PO SCH ×2 (01:04→09:08)
[2022-02-21 05:30] LABS: Calcium 7.9 mg/dL (8.4-10.2)
[2022-02-21] MEDS: FUROSEMIDE 40 MG/4 ML INJ IV SCH ×2 (06:14→17:22)
[2022-02-21] MEDS: HEPARIN 5,000 UNIT/1 ML VIAL SUB-Q SCH ×2 (09:04→22:06)
[2022-02-21] MEDS: FERROUS SULFATE 325 MG TAB PO SCH ×2 (09:05→22:06)
[2022-02-21] MEDS: POLYETHYLENE GLYCOL 3350 17 GM POWDER PO SCH (09:08)
[2022-02-21] MEDS: METOPROLOL TARTRATE 50 MG TAB PO SCH ×2 (09:08→22:06)
--- NOTE | 2022-02-21 09:37 | Progress Note ---
Assessment and Plan - Patient Problems (1) Volume overload Current Visit: Yes Status: Acute Plan to address problem: Patient presents with recurrent volume overload due to end-stage renal failure and severe uncontrolled hypertension. Patient is still adamant in her refusal to undergo dialysis. We will continue medical therapy to optimize antihypertensive therapy, continue diuretics as tolerated. Further cardiac evaluation and management will depend on clinical course. Subjective Date of service: 02/21/22 Principal diagnosis: Volume overload Interval history: Patient appears mildly dyspneic, but states that she feels better than yesterday. No new cardiac events reported. Blood pressure control is now optimal. Objective Vital Signs Temp Pulse Resp BP BP Pulse Ox 02/21/22 08:08 97.9 F 66 107/59 96 02/21/22 06:10 98.1 F 62 17 116/67 95 02/21/22 05:00 95 02/21/22 04:00 67 02/21/22 01:15 98 F 93 H 17 116/62 94 02/21/22 00:56 98 F 17 139/77 97 02/21/22 00:50 83 02/20/22 22:13 96 H 122/69 02/20/22 22:12 96 H 122/69 02/20/22 22:02 97.8 F 96 H 17 126/63 100 02/20/22 19:45 89 02/20/22 17:10 18 96 02/20/22 17:07 126/74 02/20/22 17:05 82 97 - Physical Examination General: Other (Mild dyspnea) HEENT: Positive: PERRL Neck: Positive: neck supple Cardiac: Positive: Reg Rate and Rhythm Lungs: Positive: Decreased Breath Sounds Neuro: Positive: Grossly Intact Abdomen: Positive: Soft Skin: Positive: Clear Extremities: Absent: edema - Labs and Meds Comprehensive Metabolic Panel 02/21/22 Range/Units 04:28 Sodium 139 (137-145) mmol/L Potassium 4.2 (3.6-5.0) mmol/L Chloride 107.1 H (98-107) mmol/L Carbon Dioxide 16 L (22-30) mmol/L BUN 85 H (7-17) mg/dL Creatinine 5.7 H (0.6-1.2) mg/dL Glucose 132 H (65-100) mg/dL Calcium 7.9 L (8.4-10.2) mg/dL
--- NOTE | 2022-02-21 19:55 | Progress Note ---
Assessment and Plan Assessment and plan: -- Acute exacerbation of chronic systolic congestive heart failure; IV diuretics, beta-blockers, no GUILLE inhibitors in view of renal failure, input output monitoring Daily weights,Low-sodium diet, fluid restriction, cardiology consult -- Acute on chronic kidney disease stage 4 Closely monitor renal function, avoid nephrotoxin Renal dosing of medications, nephrology consult -- Hypertension; Moderate control, continue current antihypertensives As needed medications -- Sinus tachycardia; Continue beta-blockers supportive care -- Hyperkalemia; Kayexalate, monitor electrolytes -- Transaminitis; Probably due to liver congestion Closely monitor transaminases Consider ultrasound of the abdomen and liver if needed --Dyslipidemia;Continue statin -- DVT prophylaxis; Heparin renal dose --Medical noncompliance; Patient strongly advised to comply with medications diet follow-up visits Patient verbalized understanding however has not been taking medicines for some time - Advance care planning; 30 minutes Patient's condition, diagnosis explained, treatment plan discussed with the patient Informed that consultants will see the patient, prognosis, discharge planning Answered all the patient's questions Preventive care planning; 30 minutes Patient strongly advised to comply with medications, diet and follow-up visits Closely monitor the patient and adjust management as needed Plan of care reviewed with the patient and her nurse 02/22/2020; patient feels better, nephrology recommended to initiate hemodialysis However patient refused, consultants evaluation and recommendations noted and ap preciated Continue current management Possible discharge tomorrow if stable and cleared by consultants 30 History Interval history: I have seen and examined the patient at the bedside Patient's chart and medications reviewed No new events reported by nursing staff Patient still has mild shortness of breath Vital signs noted Hospitalist Physical - Constitutional Vitals: Temp Pulse Resp BP Pulse Ox 98.9 F 70 18 128/68 96 02/21/22 15:50 02/21/22 15:50 02/21/22 11:02 02/21/22 15:50 02/21/22 19:37 General appearance: Present: mild distress, well-nourished - EENT Eyes: Present: PERRL, EOM intact - Neck Neck: Present: supple, normal ROM - Respiratory Respiratory effort: normal Respiratory: bilateral: diminished, rales, negative: rhonchi, wheezing - Cardiovascular Rhythm: regular Heart Sounds: Present: S1 & S2 - Extremities Extremities: no ischemia, No edema - Abdominal General gastrointestinal: soft, non-tender, non-distended, normal bowel sounds - Integumentary Integumentary: Present: clear, warm - Psychiatric Psychiatric: appropriate mood/affect, cooperative - Neurologic Neurologic: moves all extremities HEART Score - HEART Score Troponin: Troponin T 0.067 ng/mL (0.00-0.029) H 02/19/22 05:27 Results - Labs CBC & Chem 7: 02/19/22 05:27 02/21/22 04:28 Labs: Laboratory Last Values WBC 6.8 K/mm3 (4.5-11.0) 02/19/22 05:27 RBC 3.13 M/mm3 (3.65-5.03) L 02/19/22 05:27 Hgb 8.7 gm/dl (10.1-14.3) L 02/19/22 05:27 Hct 27.6 % (30.3-42.9) L 02/19/22 05:27 MCV 88 fl (79-97) 02/19/22 05:27 MCH 28 pg (28-32) 02/19/22 05:27 MCHC 31 % (30-34) 02/19/22 05:27 RDW 16.1 % (13.2-15.2) H 02/19/22 05:27 Plt Count 250 K/mm3 (140-440) 02/19/22 05:27 Sodium 139 mmol/L (137-145) 02/21/22 04:28 Potassium 4.2 mmol/L (3.6-5.0) 02/21/22 04:28 Chloride 107.1 mmol/L (98-107) H 02/21/22 04:28 Carbon Dioxide 16 mmol/L (22-30) L 02/21/22 04:28 Anion Gap 20 mmol/L 02/21/22 04:28 BUN 85 mg/dL (7-17) H 02/21/22 04:28 Creatinine 5.7 mg/dL (0.6-1.2) H 02/21/22 04:28 Estimated GFR 9 ml/min 02/21/22 04:28 BUN/Creatinine Ratio 15 % 02/21/22 04:28 Glucose 132 mg/dL (65-100) H 02/21/22 04:28 Calcium 7.9 mg/dL (8.4-10.2) L 02/21/22 04:28 Magnesium 2.30 mg/dL (1.7-2.3) 02/21/22 04:28 Total Bilirubin 0.30 mg/dL (0.1-1.2) 02/20/22 05:01 Direct Bilirubin < 0.2 mg/dL (0-0.2) 02/20/22 05:01 Indirect Bilirubin 0.1 mg/dL 02/20/22 05:01 AST 94 units/L (5-40) H 02/20/22 05:01 ALT 122 units/L (7-56) H 02/20/22 05:01 Alkaline Phosphatase 76 units/L (35-129) 02/20/22 05:01 Troponin T 0.067 ng/mL (0.00-0.029) H 02/19/22 05:27 NT-Pro-B Natriuret Pep 32708 pg/mL (0-900) H 02/19/22 05:27 Total Protein 5.4 g/dL (6.3-8.2) L 02/20/22 05:01 Albumin 3.6 g/dL (3.9-5) L 02/20/22 05:01 Albumin/Globulin Ratio 2.0 % 02/20/22 05:01 Triglycerides 133 mg/dL (2-149) 02/19/22 05:27 Cholesterol 222 mg/dL (50-199) H 02/19/22 05:27 LDL Cholesterol Direct 153 mg/dL (50-130) H 02/19/22 05:27 HDL Cholesterol 47 mg/dL (40-59) 02/19/22 05:27 Cholesterol/HDL Ratio 4.72 % 02/19/22 05:27 Mathew/IV: Voiding Method Toilet Active Medications - Current Medications Current Medications: Generic Name Dose Route Start Last Admin Trade Name Freq PRN Reason Stop Dose Admin Acetaminophen 650 mg 02/19/22 13:30 Acetaminophen 325 Mg Tab PO Q4H PRN Pain MILD(1-3)/Fever >100.5/PULLIAM Clonidine HCl 0.1 mg 02/20/22 17:47 Clonidine 0.1 Mg Tab PO Q4H PRN SBP >160 Doxazosin Mesylate 4 mg 02/19/22 22:00 02/20/22 22:13 Doxazosin 4 Mg Tab PO 4 mg QHS JENNIFER Administration Ferrous Sulfate 325 mg 02/19/22 22:00 02/21/22 09:05 Ferrous Sulfate 325 Mg Tab PO 325 mg BID JENNIFER Administration Furosemide 40 mg 02/19/22 18:00 02/21/22 17:22 Furosemide 40 Mg/4 Ml Inj IV 40 mg 0600,1800 JENNIFER Administration Heparin Sodium (Porcine) 5,000 unit 02/19/22 22:00 02/21/22 09:04 Heparin 5,000 Unit/1 Ml Vial SUB-Q 5,000 unit Q12HR JENNIFER Administration Metoprolol Tartrate 50 mg 02/19/22 22:00 02/21/22 09:08 Metoprolol Tartrate 50 Mg Tab PO Not Given BID JENNIFER Morphine Sulfate 2 mg 02/19/22 13:30 Morphine 4 Mg/1 Ml Inj IV Q6H PRN Pain , Severe (7-10) Nifedipine 60 mg 02/19/22 22:00 02/21/22 09:08 Nifedipine Xl 60 Mg Tab PO Not Given Q12HR [facility] Ondansetron HCl 4 mg 02/19/22 13:30 Ondansetron 4 Mg/2 Ml Inj IV Q8H PRN Nausea And Vomiting Oxycodone/Acetaminophen 1 tab 02/19/22 13:30 02/21/22 15:42 Oxycodone /Acetaminophen 5-325mg Tab PO 1 tab Q6H PRN Administration Pain, Moderate (4-6) Polyethylene Glycol 17 gm 02/20/22 10:00 02/21/22 09:08 Polyethylene Glycol 3350 17 Gm Powder PO Not Given QDAY JENNIFER Sodium Chloride 10 ml 02/19/22 22:00 02/21/22 09:08 Sodium Chloride 0.9% 10 Ml Flush Syringe IV 10 ml BID JENNIFER Administration Sodium Chloride 10 ml 02/19/22 13:30 Sodium Chloride 0.9% 10 Ml Flush Syringe IV PRN PRN LINE FLUSH
--- NOTE | 2022-02-21 20:20 | Progress Note ---
Assessment and Plan Impression: * Stage V chronic kidney disease * Pulmonary edema * Metabolic acidosis * Hypertension * Anemia in CKD Plan: * Patient continues to decline dialysis; as such, there is not much to offer from a renal standpoint. She has been advised of risk of . She continues to decline. * Continue current management * Diuresis per cardiology * Continue Na Bicarbonate * Dose medications for renal function * Recommend hospice care as patient continues to decline dialysis Subjective Date of service: 02/21/22 Principal diagnosis: Volume overload Interval history: Patient reports SOB improved. Objective - Vital Signs Vital signs: Vital Signs - 12hr 02/21/22 02/21/22 02/21/22 09:03 11:02 15:50 Temperature 98.9 F Pulse Rate 70 Respiratory 18 Rate Blood Pressure 107/52 128/68 Blood Pressure [Right] O2 Sat by Pulse 96 98 Oximetry 02/21/22 02/21/22 19:37 20:07 Temperature 97.6 F Pulse Rate 74 Respiratory 17 Rate Blood Pressure Blood Pressure 148/74 [Right] O2 Sat by Pulse 96 98 Oximetry - General Appearance General appearance: well-developed, well-nourished EENT: ATNC Respiratory: Present: Decreased Breath Sounds Cardiology: regular, S1S2 Gastrointestinal: normal, no tenderness, no distended Integumentary: warm and dry Psychiatric: cooperative - Lab 02/19/22 05:27 02/21/22 04:28 Most recent lab results Calcium 7.9 mg/dL (8.4-10.2) L 02/21/22 04:28 Magnesium 2.30 mg/dL (1.7-2.3) 02/21/22 04:28 Medications & Allergies - Medications Allergies/Adverse Reactions: Allergies No Known Allergies Allergy (Verified 01/02/22 14:40) Home Medications: Home Medications Medication Instructions Recorded Confirmed Last Taken Type Doxazosin [Cardura] 4 mg PO QHS #30 tablet 03/22/17 02/20/22 02/07/22 Rx NIFEdipine XL [Procardia Xl] 60 mg PO Q12HR #60 tablet 03/22/17 02/20/22 02/07/22 Rx predniSONE [Deltasone] 20 mg PO QDAY #10 tablet 03/22/17 02/20/22 02/07/22 Rx traMADoL [Ultram 50 MG tab] 50 mg PO Q6HR PRN #20 tablet 03/22/17 02/20/22 Unk nown Rx Ascorbic Acid [Vitamin C] 500 mg PO BID #30 tablet 01/06/22 02/20/22 02/07/22 Rx Azithromycin [Zithromax TAB] 500 mg PO QDAY #3 tablet 01/06/22 02/20/22 02/07/22 Rx Cholecalciferol Vit D3 [Vitamin D3 1,000 unit PO QDAY #30 tablet 01/06/22 02/20/22 02/07/22 Rx 1,000 UNIT TAB] Ferrous Sulfate [Feosol 325 MG tab] 325 mg PO BID #60 tablet 01/06/22 02/20/22 02/07/22 Rx Furosemide [Lasix TAB] 40 mg PO QDAY #30 tablet 01/06/22 02/20/22 02/07/22 Rx Metoprolol [Lopressor TAB] 50 mg PO BID #60 tablet 01/06/22 02/20/22 02/07/22 Rx Ondansetron [Zofran Odt] 4 mg PO Q8HR #30 tab.rapdis 01/06/22 02/20/22 02/07/22 Rx Sodium Bicarbonate 650 mg PO BID #60 tablet 01/06/22 02/20/22 02/07/22 Rx polyethylene glycoL 3350 [Miralax 17 gm PO QDAY #30 powd.pack 01/06/22 02/20/22 02/07/22 Rx 3350] Active Medications: Generic Name Dose Route Start Last Admin Trade Name Freq PRN Reason Stop Dose Admin Acetaminophen 650 mg 02/19/22 13:30 Acetaminophen 325 Mg Tab PO Q4H PRN Pain MILD(1-3)/Fever >100.5/PULLIAM Clonidine HCl 0.1 mg 02/20/22 17:47 Clonidine 0.1 Mg Tab PO Q4H PRN SBP >160 Doxazosin Mesylate 4 mg 02/19/22 22:00 02/20/22 22:13 Doxazosin 4 Mg Tab PO 4 mg QHS JENNIFER Administration Ferrous Sulfate 325 mg 02/19/22 22:00 02/21/22 09:05 Ferrous Sulfate 325 Mg Tab PO 325 mg BID JENNIFER Administration Furosemide 40 mg 02/19/22 18:00 02/21/22 17:22 Furosemide 40 Mg/4 Ml Inj IV 40 mg 0600,1800 JENNIFER Administration Heparin Sodium (Porcine) 5,000 unit 02/19/22 22:00 02/21/22 09:04 Heparin 5,000 Unit/1 Ml Vial SUB-Q 5,000 unit Q12HR JENNIFER Administration Metoprolol Tartrate 50 mg 02/19/22 22:00 02/21/22 09:08 Metoprolol Tartrate 50 Mg Tab PO Not Given BID JENNIFER Morphine Sulfate 2 mg 02/19/22 13:30 Morphine 4 Mg/1 Ml Inj IV Q6H PRN Pain , Severe (7-10) Nifedipine 60 mg 02/19/22 22:00 02/21/22 09:08 Nifedipine Xl 60 Mg Tab PO Not Given Q12HR JENNIFER Ondansetron HCl 4 mg 02/19/22 13:30 Ondansetron 4 Mg/2 Ml Inj IV Q8H PRN Nausea And Vomiting Oxycodone/Acetaminophen 1 tab 02/19/22 13:30 02/21/22 15:42 Oxycodone /Acetaminophen 5-325mg Tab PO 1 tab Q6H PRN Administration Pain, Moderate (4-6) Polyethylene Glycol 17 gm 02/20/22 10:00 02/21/22 09:08 Polyethylene Glycol 3350 17 Gm Powder PO Not Given QDAY JENNIFER Sodium Chloride 10 ml 02/19/22 22:00 02/21/22 09:08 Sodium Chloride 0.9% 10 Ml Flush Syringe IV 10 ml BID JENNIFER Administration Sodium Chloride 10 ml 02/19/22 13:30 Sodium Chloride 0.9% 10 Ml Flush Syringe IV PRN PRN LINE FLUSH
[2022-02-21] MEDS: DOXAZOSIN 4 MG TAB PO SCH (22:06)
[2022-02-22] MEDS: NIFEdipine XL 60 MG TAB PO SCH ×2 (00:33→09:38)
[2022-02-22 05:12] VITALS: BP 120/68
[2022-02-22] MEDS: FUROSEMIDE 40 MG/4 ML INJ IV SCH ×2 (05:12→18:20)
--- NOTE | 2022-02-22 08:58 | Progress Note ---
Assessment and Plan - Patient Problems (1) Volume overload Current Visit: Yes Status: Acute Plan to address problem: Patient presents with recurrent volume overload due to end-stage renal failure and severe uncontrolled hypertension. Patient is still adamant in her refusal to undergo dialysis. We will continue medical therapy to optimize antihypertensive therapy, continue diuretics as tolerated. Further cardiac evaluation and management will depend on clinical course. Subjective Date of service: 02/22/22 Principal diagnosis: Volume overload Interval history: Patient is comfortable, no new cardiac complaints, states that her breathing is better today. No new cardiac events reported. Objective Vital Signs Temp Pulse Resp BP BP Pulse Ox 02/22/22 05:08 98 F 63 17 120/68 98 02/22/22 02:40 63 02/22/22 00:29 98.2 F 72 16 134/71 97 02/21/22 22:25 72 02/21/22 20:07 97.6 F 74 17 148/74 98 02/21/22 19:37 96 02/21/22 19:00 63 02/21/22 15:50 98.9 F 70 128/68 98 02/21/22 11:02 18 96 02/21/22 09:03 107/52 - Physical Examination General: Other (Mild dyspnea) HEENT: Positive: PERRL Neck: Positive: neck supple Cardiac: Positive: Reg Rate and Rhythm Lungs: Positive: Decreased Breath Sounds Neuro: Positive: Grossly Intact Abdomen: Positive: Soft Skin: Positive: Clear Extremities: Absent: edema
--- NOTE | 2022-02-22 09:13 | Progress Note ---
Assessment and Plan Assessment and plan: -- Acute exacerbation of chronic systolic congestive heart failure; IV diuretics, beta-blockers, no GUILLE inhibitors in view of renal failure, input output monitoring Daily weights,Low-sodium diet, fluid restriction, cardiology consult -- Acute on chronic kidney disease stage 4 Closely monitor renal function, avoid nephrotoxin Renal dosing of medications, nephrology consult -- Hypertension; Moderate control, continue current antihypertensives As needed medications -- Sinus tachycardia; Continue beta-blockers supportive care -- Hyperkalemia; Kayexalate, monitor electrolytes -- Transaminitis; Probably due to liver congestion Closely monitor transaminases Consider ultrasound of the abdomen and liver if needed --Dyslipidemia;Continue statin -- DVT prophylaxis; Heparin renal dose --Medical noncompliance; Patient strongly advised to comply with medications diet follow-up visits Patient verbalized understanding however has not been taking medicines for some time - Advance care planning; 30 minutes Patient's condition, diagnosis explained, treatment plan discussed with the patient Informed that consultants will see the patient, prognosis, discharge planning Answered all the patient's questions Preventive care planning; 30 minutes Patient strongly advised to comply with medications, diet and follow-up visits Closely monitor the patient and adjust management as needed Plan of care reviewed with the patient and her nurse 02/22/2020; patient feels better, nephrology recommended to initiate hemodialysis However patient refused, consultants evaluation and recommendations noted and ap preciated Continue current management Possible discharge tomorrow if stable and cleared by consultants Hospitalist Physical - Constitutional Vitals: Temp Pulse Resp BP Pulse Ox 98 F 63 17 120/68 98 02/22/22 05:08 02/22/22 05:08 02/22/22 05:08 02/22/22 05:08 02/22/22 05:08 General appearance: Present: mild distress, well-nourished HEART Score - HEART Score Troponin: Troponin T 0.067 ng/mL (0.00-0.029) H 02/19/22 05:27 Results - Labs CBC & Chem 7: 02/19/22 05:27 02/21/22 04:28 Labs: Laboratory Last Values WBC 6.8 K/mm3 (4.5-11.0) 02/19/22 05:27 RBC 3.13 M/mm3 (3.65-5.03) L 02/19/22 05:27 Hgb 8.7 gm/dl (10.1-14.3) L 02/19/22 05:27 Hct 27.6 % (30.3-42.9) L 02/19/22 05:27 MCV 88 fl (79-97) 02/19/22 05:27 MCH 28 pg (28-32) 02/19/22 05:27 MCHC 31 % (30-34) 02/19/22 05:27 RDW 16.1 % (13.2-15.2) H 02/19/22 05:27 Plt Count 250 K/mm3 (140-440) 02/19/22 05:27 Sodium 139 mmol/L (137-145) 02/21/22 04:28 Potassium 4.2 mmol/L (3.6-5.0) 02/21/22 04:28 Chloride 107.1 mmol/L (98-107) H 02/21/22 04:28 Carbon Dioxide 16 mmol/L (22-30) L 02/21/22 04:28 Anion Gap 20 mmol/L 02/21/22 04:28 BUN 85 mg/dL (7-17) H 02/21/22 04:28 Creatinine 5.7 mg/dL (0.6-1.2) H 02/21/22 04:28 Estimated GFR 9 ml/min 02/21/22 04:28 BUN/Creatinine Ratio 15 % 02/21/22 04:28 Glucose 132 mg/dL (65-100) H 02/21/22 04:28 Calcium 7.9 mg/dL (8.4-10.2) L 02/21/22 04:28 Magnesium 2.30 mg/dL (1.7-2.3) 02/21/22 04:28 Total Bilirubin 0.30 mg/dL (0.1-1.2) 02/20/22 05:01 Direct Bilirubin < 0.2 mg/dL (0-0.2) 02/20/22 05:01 Indirect Bilirubin 0.1 mg/dL 02/20/22 05:01 AST 94 units/L (5-40) H 02/20/22 05:01 ALT 122 units/L (7-56) H 02/20/22 05:01 Alkaline Phosphatase 76 units/L (35-129) 02/20/22 05:01 Troponin T 0.067 ng/mL (0.00-0.029) H 02/19/22 05:27 NT-Pro-B Natriuret Pep 39174 pg/mL (0-900) H 02/19/22 05:27 Total Protein 5.4 g/dL (6.3-8.2) L 02/20/22 05:01 Albumin 3.6 g/dL (3.9-5) L 02/20/22 05:01 Albumin/Globulin Ratio 2.0 % 02/20/22 05:01 Triglycerides 133 mg/dL (2-149) 02/19/22 05:27 Cholesterol 222 mg/dL (50-199) H 02/19/22 05:27 LDL Cholesterol Direct 153 mg/dL (50-130) H 02/19/22 05:27 HDL Cholesterol 47 mg/dL (40-59) 02/19/22 05:27 Cholesterol/HDL Ratio 4.72 % 02/19/22 05:27 Mathew/IV: Voiding Method Toilet Active Medications - Current Medications Current Medications: Generic Name Dose Route Start Last Admin Trade Name Freq PRN Reason Stop Dose Admin Acetaminophen 650 mg 02/19/22 13:30 Acetaminophen 325 Mg Tab PO Q4H PRN Pain MILD(1-3)/Fever >100.5/PULLIAM Clonidine HCl 0.1 mg 02/20/22 17:47 Clonidine 0.1 Mg Tab PO Q4H PRN SBP >160 Doxazosin Mesylate 4 mg 02/19/22 22:00 02/21/22 22:06 Doxazosin 4 Mg Tab PO 4 mg QHS JENNIFER Administration Ferrous Sulfate 325 mg 02/19/22 22:00 02/21/22 22:06 Ferrous Sulfate 325 Mg Tab PO 325 mg BID JENNIFER Administration Furosemide 40 mg 02/19/22 18:00 02/22/22 05:12 Furosemide 40 Mg/4 Ml Inj IV 40 mg 0600,1800 JENNIFER Administration Heparin Sodium (Porcine) 5,000 unit 02/19/22 22:00 02/21/22 22:06 Heparin 5,000 Unit/1 Ml Vial SUB-Q 5,000 unit Q12HR JENNIFER Administration Metoprolol Tartrate 50 mg 02/19/22 22:00 02/21/22 22:06 Metoprolol Tartrate 50 Mg Tab PO 50 mg BID JENNIFER Administration Morphine Sulfate 2 mg 02/19/22 13:30 Morphine 4 Mg/1 Ml Inj IV Q6H PRN Pain , Severe (7-10) Nifedipine 60 mg 02/19/22 22:00 02/22/22 00:33 Nifedipine Xl 60 Mg Tab PO 60 mg Q12HR JENNIFER Administration Ondansetron HCl 4 mg 02/19/22 13:30 Ondansetron 4 Mg/2 Ml Inj IV Q8H PRN Nausea And Vomiting Oxycodone/Acetaminophen 1 tab 02/19/22 13:30 02/21/22 15:42 Oxycodone /Acetaminophen 5-325mg Tab PO 1 tab Q6H PRN Administration Pain, Moderate (4-6) Polyethylene Glycol 17 gm 02/20/22 10:00 02/21/22 09:08 Polyethylene Glycol 3350 17 Gm Powder PO Not Given QDAY JENNIFER Sodium Chloride 10 ml 02/19/22 22:00 02/21/22 22:08 Sodium Chloride 0.9% 10 Ml Flush Syringe IV 10 ml BID JENNIFER Administration Sodium Chloride 10 ml 02/19/22 13:30 Sodium Chloride 0.9% 10 Ml Flush Syringe IV PRN PRN LINE FLUSH
[2022-02-22] MEDS: METOPROLOL TARTRATE 50 MG TAB PO SCH (09:38)
[2022-02-22] MEDS: HEPARIN 5,000 UNIT/1 ML VIAL SUB-Q SCH (09:38)
[2022-02-22] MEDS: FERROUS SULFATE 325 MG TAB PO SCH (09:38)
[2022-02-22] MEDS: POLYETHYLENE GLYCOL 3350 17 GM POWDER PO SCH (09:55)
--- NOTE | 2022-02-22 14:15 | Discharge Summary ---
Providers - Providers Date of Admission: 02/19/22 13:31 Date of discharge: 02/22/22 Attending physician: RADHA MÁRQUEZ 02/20/22 13:48 Consult to Physician [CONS] Routine Comment: Consulting Provider: LUPE GRAY Physician Instructions: Reason For Exam: Acute on chronic diastolic CHF 02/20/22 13:55 Consult to Physician [CONS] Routine Comment: Consulting Provider: PANCHITO ALEXANDER Physician Instructions: Reason For Exam: Acute on chronic kidney disease Primary care physician: CONCRETE TESTER Hospitalization Reason for admission: Worsening shortness of breath/acute on chronic systolic CHF Condition: Stable Pertinent studies: X-ray chest small dependent pleural effusion left greater than right Emphysematous changes are not excluded no superimposed acute pathology is clearly suggested Hospital course: 71-year-old female patient with significant past medical history of congestive heart failure atrial atrial tachycardia chronic kidney disease hypertension was admitted through emergency room with worsening shortness of breath of 1 month duration patient was eventually noted to have fluid overload and chest congestion acute leg acute on chronic systolic congestive heart failure Admitted to the hospital and managed appropriately subsequently evaluated by cardiology and nephrology cardiology and medications optimized nephrology recommended dialysis Patient adamantly refused dialysis and has not decided about the recommendations by nephrology. Today patient is comfortable no new complaints vital signs stable physical examination unremarkable hemodynamically and clinically stable for discharge patient counseled the importance of adhering to treatment plan and the complications of which may even lead to . She verbalized understanding, has not been on dialysis Patient is discharged home with follow-up visits of cardiology and nephrology I also encouraged her to take a second opinion with a private caddy packer She Verbalized understanding Discharge diagnosis: -- Acute exacerbation of chronic mild systolic congestive heart failure; IV diuretics, beta-blockers, no GUILLE inhibitors in view of renal failure, input output monitoring Daily weights,Low-sodium diet, fluid restriction, cardiology consult -- Acute on chronic kidney disease stage 4 Closely monitor renal function, avoid nephrotoxin Renal dosing of medications, nephrology consult -- Hypertension; Moderate control, continue current antihypertensives As needed medications -- Sinus tachycardia; Continue beta-blockers supportive care -- Hyperkalemia; Kayexalate, monitor electrolytes -- Transaminitis; Probably due to liver congestion Closely monitor transaminases Consider ultrasound of the abdomen and liver if needed --Dyslipidemia;Continue statin -- DVT prophylaxis; Heparin renal dose --Medical noncompliance; Patient strongly advised to comply with medications diet follow-up visits Patient verbalized understanding however has not been taking medicines for some time - Advance care planning; 30 minutes Patient's condition, diagnosis explained, treatment plan discussed with the patient Informed that consultants will see the patient, prognosis, discharge planning Answered all the patient's questions Patient was advised multiple times by all the caregivers report needing hemodialysis Patient is adamant and does not want dialysis Preventive care planning; 30 minutes Patient strongly advised to comply with medications, diet and follow-up visits Cleared by consultants for discharge and follow-up per schedule Stable at discharge Disposition: HOME / SELF CARE / HOMELESS Final Discharge Diagnosis (Prints w/discharge instructions): Acute exacerbation of chronic systolic congestive heart failure. Acute on chronic kidney disease stage V. Hypertension. Sinus tachycardia. Hyperkalemia. Transaminitis. Dy slipidemia. Medical noncompliance. Advance care planning. Preventative care planning Time spent for discharge: 35 min Core Measure Documentation - Palliative Care Palliative Care/ Comfort Measures: Not Applicable - Core Measures Any of the following diagnoses?: none Exam - Constitutional Vitals: Temp Pulse Resp BP Pulse Ox 98 F 63 17 120/68 98 02/22/22 05:08 02/22/22 05:08 02/22/22 05:08 02/22/22 05:08 02/22/22 05:08 General appearance: Present: no acute distress, well-nourished - EENT Eyes: Present: PERRL, EOM intact - Neck Neck: Present: supple, normal ROM - Respiratory Respiratory effort: normal Respiratory: bilateral: diminished, negative: rales, rhonchi, wheezing - Cardiovascular Rhythm: regular Heart Sounds: Present: S1 & S2 - Extremities Extremities: no ischemia, No edema - Abdominal General gastrointestinal: Present: soft, non-tender, non-distended - Integumentary Integumentary: Present: clear, warm - Musculoskeletal Musculoskeletal: strength equal bilaterally - Psychiatric Psychiatric: appropriate mood/affect, cooperative - Neurologic Neurologic: moves all extremities Plan Activity: advance as tolerated, fall precautions Diet: renal, other (cardiac) Additional Instructions: Strongly advised to comply with medications diet and follow-up doctors visits. Once again I advised that caddy packer recommended hemodialysis for her which is essential, however patient refused. I also advised to take a second opinion from a different caddy packer but make a decision, she verbalized understanding. If you have worsening symptoms contact MD or go to the nearest emergency room as needed. Patient has already refills of the prescriptions which are filled recently, does not need any new medication Follow up with: PRIMARY CARE, [Primary Care Provider] - 3-5 Days LUPE GRAY MD [Staff Physician] - 7 Days PANCHITO ALEXANDER MD [Staff Physician] - 7 Days
== END 2022-02-22 17:50 | disposition home or self-care (01) | DRG 291 ==
LOC: ED 19:52 → 4A 02-19 13:31
PROVIDERS: ADMIT Internal Medicine; ATTEND Internal Medicine
DX: I13.2 Hypertensive heart and chronic kidney disease with heart failure and with stage 5 chronic kidney disease, or end stage renal disease (principal); I50.23 Acute on chronic systolic (congestive) heart failure; N18.5 Chronic kidney disease, stage 5; N17.9 Acute kidney failure, unspecified; E87.5 Hyperkalemia; I48.91 Unspecified atrial fibrillation; E78.5 Hyperlipidemia, unspecified; D63.1 Anemia in chronic kidney disease; Z91.19 Patient's noncompliance with other medical treatment and regimen
CPT/HCPCS: 36415; 71046; 80048; 80053; 80061; 80076; 83735; 83880; 84484; 85027; 93005; G0378; J1644; J1940